=== PATIENT | female | born 1935 | race Caucasian/White ===

== ENCOUNTER → 2019-09-12 | Outpatient (CLI) | payer MEDICARE, OTHER, SELFPAY | PROVIDERS: Family Provider Family Medicine | DX: I51.7 Cardiomegaly (principal); M40.294 Other kyphosis, thoracic region; R05 Cough ==

== ENCOUNTER 2019-09-14 02:36 | Inpatient (IN) | payer MEDICARE, OTHER, SELFPAY ==
[2019-09-14] VITALS (14 sets, daily range): BP systolic 93–184; BP diastolic 46–98; PULSE 63–82; RESP 15–22; TEMP 37.1–37.2; O2SAT 86–97; BMI 34.2
--- NOTE | 2019-09-14 03:04 | W.ED.GENADLT ---
Documented by User: MICHELLE Lowry 09/14/19 19:05 HPI - General Adult General: Chief complaint: General Medical Stated complaint: COLD AND COUGH Time Seen by Provider: 09/14/19 03:01 History of Present Illness: MD complaint: [place] with pneumonia [place] [facility] [place] of symptoms Onset (ago): week(s) Review of Systems General: Reports: 10 or more systems reviewed and unremarkable except in HPI and below Resp: Reports: productive cough, wheezing, change in phlegm color (brownish to grayish) and chest congestion PFSH ED PFSH: Statuses (acute, chronic, etc) shown below reflect problem list status as previously entered and may not be historically accurate Family History (Updated 09/14/19 @ 17:17 by Chelsi Schafer RN) Other Unknown family medical history Social History Smoking and tobacco status: never smoked Physical Exam HENMT: COMMON NORMALS: normocephalic HEAD & SCALP: normocephalic Eye: GENERAL EYE: normal appearance of both eyes Neck/C-Spine: COMMON NORMALS: full ROM and no JVD Chest: COMMONS NORMALS: inspection of chest normal and palpation of chest normal Resp: COMMON NORMALS: normal respiratory effort, no retractions, no use of accessory muscles and clear to auscultation bilaterally EFFORT & INSPECTION: Yes able to speak in complete sentences AUSCULTATION: clear to auscultation bilaterally Cardio: COMMON NORMALS: no JVD, regular rate and regular rhythm RATE: regular rate RHYTHM: regular rhythm GI: COMMON NORMALS: normal to inspection, nondistended, normoactive bowel sounds, soft to palpation and non-tender INSPECTION: Yes normal to inspection AUSCULTATION: Yes normoactive bowel sounds PALPATION: Yes soft Extremity: COMMON NORMALS: normal to inspection, full ROM and normal capillary refill Psych: COMMON NORMALS: mental status grossly normal Skin: COMMON NORMALS: no rashes or lesions noted GENERAL SKIN EXAM: no rashes or lesions noted Course Vital Signs: Vital signs: Vital Signs Temperature 98.7 F 09/14/19 02:47 Pulse Rate 72 09/14/19 17:24 Respiratory Rate 20 H 09/14/19 17:24 Blood Pressure 184/68 01/01/20 17:24 Pulse Oximetry 94 09/14/19 17:24 [facility] - General Adult Lab Data: Labs: Lab Results 09/14/19 09/14/19 09/14/19 Range/Units 03:33 03:33 04:37 WBC 5.0 (4.0-10.0) 10^3/ uL RBC 3.67 L (4.1-5.3) 10^6/u L Hgb 12.9 (11.5-15.3) g/dL Hct 38.3 (37.0-47.0) % MCV 104.4 H (81-99) fL MCH 35.1 H (28.0-34.0) pg MCHC 33.7 (30.0-36.0) g/dL RDW 12.5 (12.1-15.1) % Plt Count 67 L (130-400) 10^3/c mm MPV 10.3 (7.4-10.4) fL Neut % (Auto) 71.6 % Lymph % (Auto) 13.3 % [place] % (Auto) 11.9 % Eos % (Auto) 2.4 % Baso % (Auto) 0.4 % Neut # (Auto) 3.5 (1.8-7.7) 10^3/u L Lymph # (Auto) 0.7 L (0.8-4.8) 10^3/u L [place] # (Auto) 0.6 (0.2-0.9) 10^3/u L Eos # (Auto) 0.1 (0.0-0.8) 10^3/u L Baso # (Auto) 0.0 (0.0-0.1) 10^3/u L Nucleated RBC % (a uto) 0 % Nucleated RBCs # 0.0 /100WBC Sodium 134 L (136-145) mmol/L Potassium 4.3 (3.5-5.1) mmol/L Chloride 97 L (98-107) mmol/L Carbon Dioxide 27 (22-29) mmol/L Anion Gap 14.3 (5-19) BUN 12 (8-23) mg/dL Creatinine 0.8 (0.5-0.9) mg/dL Glucose 194 H (74-106) mg/dL POC Glucose (70-110) mg/dL Lactate 1.1 (0.5-2.2) mmol/L Calcium 9.6 (8.8-10.2) mg/Dl 09/14/19 Range/Units 14:34 WBC (4.0-10.0) 10^3/ uL RBC (4.1-5.3) 10^6/u L Hgb (11.5-15.3) g/dL Hct (37.0-47.0) % MCV (81-99) fL MCH (28.0-34.0) pg MCHC (30.0-36.0) g/dL RDW (12.1-15.1) % Plt Count (130-400) 10^3/c mm MPV (7.4-10.4) fL Neut % (Auto) % Lymph % (Auto) % [place] % (Auto) % Eos % (Auto) % Baso % (Auto) % Neut # (Auto) (1.8-7.7) 10^3/u L Lymph # (Auto) (0.8-4.8) 10^3/u L [place] # (Auto) (0.2-0.9) 10^3/u L Eos # (Auto) (0.0-0.8) 10^3/u L Baso # (Auto) (0.0-0.1) 10^3/u L Nucleated RBC % (a uto) % Nucleated RBCs # /100WBC Sodium (136-145) mmol/L Potassium (3.5-5.1) mmol/L Chloride (98-107) mmol/L Carbon Dioxide (22-29) mmol/L Anion Gap (5-19) BUN (8-23) mg/dL Creatinine (0.5-0.9) mg/dL Glucose (74-106) mg/dL POC Glucose 236 (70-110) mg/dL Lactate (0.5-2.2) mmol/L Calcium (8.8-10.2) mg/Dl Discharge Plan Discharge Patient Disposition: Admitted As Inpatient Admit Provider: Alvino Kimble Clinical Impression: Pneumonia Qualifiers: Pneumonia type: due to unspecified organism Laterality: right Lung location: lower lobe of lung Qualified Code(s): J18.9 - Pneumonia, unspecified organism Condition: Stable Referrals: Alvino Kimble MD [Primary Care Provider] - Discharge Date/Time: 09/14/19 16:42 Coding Level of Care Code ED Test Lead Application Testing for Jani Fwd Documented by User: Rosalio Alcaraz MD 09/14/19 05:38 HPI - General Adult General: Chief complaint: General Medical Stated complaint: COLD AND COUGH Time Seen by Provider: 09/14/19 03:01 Source: patient and EMS Mode of arrival: EMS Limitations: no limitations History of Present Illness: Onset (ago): hour(s) Associated symptoms: Reports dyspnea; Deny chest pain, headache(s), nausea, rash or vomiting Review of Systems Const: Denies: fever or chills Eyes: Denies: change in vision ENMT: Denies: throat pain or mouth pain Card: Denies: chest pain Resp: Reports: shortness of breath and productive cough GI: Denies: abdominal pain, nausea, vomiting or diarrhea : Denies: difficulty urinating Musc: Denies: back pain or joint pain Skin/Breast: Denies: rash Neuro: Denies: headache or behavioral changes Psych: Denies: depression Endo: Denies: excessive urination Jarvis/Lymph: Denies: easy bruising All/Imm: Denies: hives PFSH ED PFSH: Statuses (acute, chronic, etc) shown below reflect problem list status as previously entered and may not be historically accurate Family History (Updated 09/14/19 @ 17:17 by Chelsi Schafer, ADARSH) Other Unknown family medical history Social History Smoking and tobacco status: never smoked Course Vital Signs: Vital signs: Vital Signs Temperature 98.7 F 09/14/19 02:47 Pulse Rate 72 09/14/19 17:24 Respiratory Rate 20 H 09/14/19 17:24 Blood Pressure 184/68 09/14/19 17:24 Pulse Oximetry 94 09/14/19 17:24 MDM - General Adult MDM Narrative: Medical decision making narrative: Patient presents for shortness of breath and is requiring increased oxygen here. Anytime she ambulates she desaturates. I spoke to hospitalist who will admit. Patient given IV antibiotics here. Lab Data: Labs: Lab Results 09/14/19 09/14/19 09/14/19 Range/Units 03:33 03:33 04:37 WBC 5.0 (4.0-10.0) 10^3/ uL RBC 3.67 L (4.1-5.3) 10^6/u L Hgb 12.9 (11.5-15.3) g/dL Hct 38.3 (37.0-47.0) % MCV 104.4 H (81-99) fL MCH 35.1 H (28.0-34.0) pg MCHC 33.7 (30.0-36.0) g/dL RDW 12.5 (12.1-15.1) % Plt Count 67 L (130-400) 10^3/c mm MPV 10.3 (7.4-10.4) fL Neut % (Auto) 71.6 % Lymph % (Auto) 13.3 % [place] % (Auto) 11.9 % Eos % (Auto) 2.4 % Baso % (Auto) 0.4 % Neut # (Auto) 3.5 (1.8-7.7) 10^3/u L Lymph # (Auto) 0.7 L (0.8-4.8) 10^3/u L [place] # (Auto) 0.6 (0.2-0.9) 10^3/u L Eos # (Auto) 0.1 (0.0-0.8) 10^3/u L Baso # (Auto) 0.0 (0.0-0.1) 10^3/u L Nucleated RBC % (a uto) 0 % Nucleated RBCs # 0.0 /100WBC Sodium 134 L (136-145) mmol/L Potassium 4.3 (3.5-5.1) mmol/L Chloride 97 L (98-107) mmol/L Carbon Dioxide 27 (22-29) mmol/L Anion Gap 14.3 (5-19) BUN 12 (8-23) mg/dL Creatinine 0.8 (0.5-0.9) mg/dL Glucose 194 H (74-106) mg/dL POC Glucose (70-110) mg/dL Lactate 1.1 (0.5-2.2) mmol/L Calcium 9.6 (8.8-10.2) mg/Dl 09/14/19 Range/Units 14:34 WBC (4.0-10.0) 10^3/ uL RBC (4.1-5.3) 10^6/u L Hgb (11.5-15.3) g/dL Hct (37.0-47.0) % MCV (81-99) fL MCH (28.0-34.0) pg MCHC (30.0-36.0) g/dL RDW (12.1-15.1) % Plt Count (130-400) 10^3/c mm MPV (7.4-10.4) fL Neut % (Auto) % Lymph % (Auto) % [place] % (Auto) % Eos % (Auto) % Baso % (Auto) % Neut # (Auto) (1.8-7.7) 10^3/u L Lymph # (Auto) (0.8-4.8) 10^3/u L [place] # (Auto) (0.2-0.9) 10^3/u L Eos # (Auto) (0.0-0.8) 10^3/u L Baso # (Auto) (0.0-0.1) 10^3/u L Nucleated RBC % (a uto) % Nucleated RBCs # /100WBC Sodium (136-145) mmol/L Potassium (3.5-5.1) mmol/L Chloride (98-107) mmol/L Carbon Dioxide (22-29) mmol/L Anion Gap (5-19) BUN (8-23) mg/dL Creatinine (0.5-0.9) mg/dL Glucose (74-106) mg/dL POC Glucose 236 (70-110) mg/dL Lactate (0.5-2.2) mmol/L Calcium (8.8-10.2) mg/Dl Imaging Data^: CXR: Attestation: I personally reviewed and interpreted this imaging study as follows: My impression: rll pneumonia Discharge Plan Discharge Patient Disposition: Admitted As Inpatient Admit Provider: Alvino Kimble Clinical Impression: Pneumonia Qualifiers: Pneumonia type: due to unspecified organism Laterality: right Lung location: lower lobe of lung Qualified Code(s): J18.9 - Pneumonia, unspecified organism Condition: Stable Referrals: Alvino Kimble MD [Primary Care Provider] - Discharge Date/Time: 09/14/19 16:42 Coding Level of Care Code ED Test Lead Application Testing for [facility] Stacy
--- NOTE | 2019-09-14 03:12 | XR_ITS ---
WS: [id number] CHEST XRAY TECHNIQUE: Portable chest. CLINICAL INFORMATION: pneumonia COMPARISON: September 12, 2019 FINDINGS: Heart: Cardiomegaly. Aortic calcification. Lungs: Patchy infiltrate right lung base is stable from previous. Left lung is well aerated. Chronic emphysematous change. Bones: Thoracic curve convex right. XR/XR chest 1V portable [id number] IMPRESSION: Patchy infiltrate right lung base consistent with pneumonia. This is stable fro m previous. No focal consolidation.
[2019-09-14 03:37] LABS: Add RBC Morph No
[2019-09-14 03:44] LABS: Basophils % 0.4 %; Eosinophils # 0.1 10^3/uL (0.0-0.8); Eosinophils % 2.4 %; Hematocrit 38.3 % (37.0-47.0); Hemoglobin 12.9 g/dL (11.5-15.3); Lymphocytes # 0.7 10^3/uL (0.8-4.8); Lymphocytes % 13.3 %; Mean Corpuscular HGB Conc 33.7 g/dL (30.0-36.0); Mean Corpuscular Hemoglobin 35.1 pg (28.0-34.0); Mean Corpuscular Volume 104.4 fL (81-99); Mean Platelet Volume 10.3 fL (7.4-10.4); Monocytes # 0.6 10^3/uL (0.2-0.9); Monocytes % 11.9 %; Neutrophils # 3.5 10^3/uL (1.8-7.7); Neutrophils % 71.6 %; Nucleated Red Blood Cells % 0 %; Platelet Count 67 10^3/cmm (130-400); Red Blood Count 3.67 10^6/uL (4.1-5.3); Red Cell Distribution Width 12.5 % (12.1-15.1)
--- NOTE | 2019-09-14 03:49 | ED_ITS ---
Entered by Zulma Flores, acting as scribe for Sep 14, 2019 02:36 HPI - General Adult General: Chief complaint: General Medical Stated complaint: COLD AND COUGH Time Seen by Provider: 09/14/19 03:01 Source: patient Mode of arrival: ambulatory Limitations: no limitations History of Present Illness: HPI narrative: 84 yo f came to the er pov with cold and cough. Onset was 3 days ago. Pt was seen at [facility] and was given steroids. MD complaint: cough and cold Onset (ago): day(s) (3 days ago) Location: chest Associated symptoms: Reports cough; Deny chest pain, dyspnea, fevers/chills, headache(s), nausea, rash or vomiting Review of Systems Const: Denies: fever Eyes: Denies: change in vision ENMT: Denies: throat pain or mouth pain Card: Denies: chest pain Resp: Denies: shortness of breath GI: Denies: abdominal pain, nausea, vomiting or diarrhea : Denies: difficulty urinating Musc: Denies: back pain or joint pain Skin/Breast: Denies: rash Neuro: Denies: headache or behavioral changes Psych: Denies: depression Endo: Denies: excessive urination Jarvis/Lymph: Denies: easy bruising All/Imm: Denies: hives PFSH ED PFSH: Statuses (acute, chronic, etc) shown below reflect problem list status as previously entered and may not be historically accurate Social History Smoking and tobacco status: never smoked Physical Exam Const: COMMON NORMALS: no apparent distress, oriented x3 and healthy appearing HENMT: COMMON NORMALS: normocephalic and external nose normal HEAD & SCALP: normocephalic NOSE: external nose normal Eye: COMMON NORMALS: PERRL PUPIL: Yes PERRL Neck/C-Spine: COMMON NORMALS: full ROM and no lymphadenopathy Chest: COMMONS NORMALS: inspection of chest normal Resp: COMMON NORMALS: normal respiratory effort, no use of accessory muscles and clear to auscultation bilaterally AUSCULTATION: clear to auscultation bilaterally Cardio: COMMON NORMALS: regular rate and regular rhythm RATE: regular rate RHYTHM: regular rhythm GI: COMMON NORMALS: normal to inspection, nondistended, normoactive bowel sounds, soft to palpation, non-tender and no masses PALPATION: Yes soft Back/Pelvis: THORACIC SPINE/UPPER BACK: Yes normal to inspection Extremity: COMMON NORMALS: normal to inspection, full ROM and normal capillary refill Neuro: COMMON NORMALS: oriented x3 Psych: COMMON NORMALS: mental status grossly normal and cooperative Skin: COMMON NORMALS: no rashes or lesions noted GENERAL SKIN EXAM: no rashes or lesions noted Course Vital Signs: Vital signs: Vital Signs Temperature 98.7 F 09/14/19 02:47 Pulse Rate 71 09/14/19 05:00 Respiratory Rate 17 09/14/19 05:00 Blood Pressure 154/61 09/14/19 05:00 Pulse Oximetry 88 L 09/14/19 05:00 MDM - General Adult MDM Narrative: Medical decision making narrative: Patient presents here with cough and is found to have pneumonia. Patient has been on Levaquin. Patient here is desaturating any activity and desats to 80%. Spoke to hospitalist and will admit for IV antibiotics. Lab Data: Labs: Lab Results 09/14/19 09/14/19 09/14/19 Range/Units 03:33 03:33 04:37 WBC 5.0 (4.0-10.0) 10^3/ uL RBC 3.67 L (4.1-5.3) 10^6/u L Hgb 12.9 (11.5-15.3) g/dL Hct 38.3 (37.0-47.0) % MCV 104.4 H (81-99) fL MCH 35.1 H (28.0-34.0) pg MCHC 33.7 (30.0-36.0) g/dL RDW 12.5 (12.1-15.1) % Plt Count 67 L (130-400) 10^3/c mm MPV 10.3 (7.4-10.4) fL Neut % (Auto) 71.6 % Lymph % (Auto) 13.3 % [place] % (Auto) 11.9 % Eos % (Auto) 2.4 % Baso % (Auto) 0.4 % Neut # (Auto) 3.5 (1.8-7.7) 10^3/u L Lymph # (Auto) 0.7 L (0.8-4.8) 10^3/u L [place] # (Auto) 0.6 (0.2-0.9) 10^3/u L Eos # (Auto) 0.1 (0.0-0.8) 10^3/u L Baso # (Auto) 0.0 (0.0-0.1) 10^3/u L Nucleated RBC % (a uto) 0 % Nucleated RBCs # 0.0 /100WBC Sodium 134 L (136-145) mmol/L Potassium 4.3 (3.5-5.1) mmol/L Chloride 97 L (98-107) mmol/L Carbon Dioxide 27 (22-29) mmol/L Anion Gap 14.3 (5-19) BUN 12 (8-23) mg/dL Creatinine 0.8 (0.5-0.9) mg/dL Glucose 194 H (74-106) mg/dL Lactate 1.1 (0.5-2.2) mmol/L Calcium 9.6 (8.8-10.2) mg/Dl Imaging Data^: CXR: Attestation: I personally reviewed and interpreted this imaging study as follows: My impression: rll pneumonia Discharge Plan Discharge Patient Disposition: Admitted As Inpatient Clinical Impression: Pneumonia Condition: Stable Prescriptions: No Action Levaquin 500 mg Tablet 500 mg PO DAILY RF: 0 levothyroxine 100 mcg Tablet 100 mcg PO DAILY RF: 0 spironolactone 100 mg Tablet 100 mg PO DAILY RF: 0 propranolol 60 mg Tablet 60 mg PO DAILY RF: 0 Aspirin Low Dose 81 mg Tablet,Delayed Release (Dr/Ec) 81 mg PO DAILY RF: 0 alprazolam 0.5 mg Tablet 0.5 mg PO BID PRN (Reason: Anxiety) RF: 0 meclizine 25 mg Tablet 25 mg PO QID PRN (Reason: dizziness) RF: 0 Ventolin HFA 90 mcg/actuation Hfa Aerosol Inhaler 2 puff INHALATION 6XD PRN (Reason: Unobtainable) RF: 0 Novolog Mix 70-30FlexPen U-100 100 unit/mL (70-30) Insulin Pen 55 unit SUBCUT DIRECTED RF: 0 Referrals: Alvino Kimble MD [Primary Care Provider] - Coding Level of Care Code ED Pediatrician/Medical Doctor for g Fwd Exam Problem Focused The documentation recorded by the Mark florian Stephanie Lyn, accurately reflects the service I personally performed and the decisions made by me, Rosalio Alcaraz MD Sep 14, 2019 02:36
[2019-09-14 03:59] LABS: Anion Gap 14.3 (5-19); Blood Urea Nitrogen 12 mg/dL (8-23); Calcium 9.6 mg/Dl (8.8-10.2); Carbon Dioxide 27 mmol/L (22-29); Chloride 97 mmol/L (98-107); Glucose 194 mg/dL (74-106); Potassium 4.3 mmol/L (3.5-5.1); Sodium 134 mmol/L (136-145)
[2019-09-14] MEDS: lidocaine 1% INJ 20 mL 2.1 ML INTRADERMA (04:23)
[2019-09-14] MEDS: cefTRIAXone 1,000 mg SDV 1000 MG IM (04:25)
[2019-09-14] MEDS: sodium chloride 0.9% 1,000 ML 999 ML IV (04:43)
[2019-09-14 05:05] LABS: Lactate (Lactic Acid level) 1.1 mmol/L (0.5-2.2)
--- NOTE | 2019-09-14 07:38 | PC.NURSE ---
per Dr Webb dc ivpb rocephin due to being given IM at [id number]
[2019-09-14] MEDS: azithromycin 500 MG in sodium chloride 0.9% 250 ML 250 MG IV (07:41)
[2019-09-14] MEDS: benzonatate 100 mg Capsule PO (07:52)
[2019-09-14 14:37] LABS: Glucose Point of Care 236 mg/dL (70-110)
[2019-09-14 17:34] LABS: Glucose Point of Care 305 mg/dL (70-110)
--- NOTE | 2019-09-14 18:46 | P.HP_ITS ---
Providers/Chief Complaint Admitting Physician: Alvino Kimble MD Primary Care Provider: Alvino Kimble MD Chief Complaint: COLD AND COUGH History of Present Illness Renee Dhaliwal is a 84 year old female who came in after having 2 weeks of cough and sob. Has green sputum and had some low grade temps. Started on levaquin at 2 weeks ago. not improving. Review of Systems Narrative: General: No chronic fevers or chronic weight changes. HEENT: No acute changes in vision. No acute hearing loss. No new difficulty swallowing. Heart: No new chest pain or recent issues with coronary disease. Lungs: No history of TB. No chronic lung disease. GI: No history of GI bleeding. No hepatitis. No chronic nausea or vomitting. Renal: No dysuria or frequency. No hematuria Neuro: No acute neurological changes or deficits. Musculoskeletal: No acutely worsening joint pain or swelling. Medications/Allergies Home Medications Medication Instructions Recorded Confirmed Last Taken Type albuterol sulfate [Ventolin HFA] 2 puff INHALATION Q4H PRN 09/14/19 09/14/19 Unknown History alprazolam 0.5 mg PO BID PRN 09/14/19 09/14/19 Unknown History aspirin [Aspirin Low Dose] 81 mg PO DAILY 09/14/19 09/14/19 Unknown History docusate sodium [Colace] 100 mg PO DAILY 09/14/19 09/14/19 09/13/19 History insulin asp prt-insulin aspart See Rx Instructions .ROUTE .COMPLEX 09/14/19 09/14/19 Unknown History [Novolog Mix 70-30FlexPen U-100] levofloxacin [Levaquin] 500 mg PO DAILY 09/14/19 09/14/19 09/12/19 History levothyroxine 100 mcg PO DAILY 09/14/19 09/14/19 09/13/19 History meclizine 25 mg PO QID PRN 09/14/19 09/14/19 09/13/19 History 25 MG propranolol 60 mg PO DAILY 09/14/19 09/14/19 09/13/19 History spironolactone 100 mg PO DAILY 09/14/19 09/14/19 09/13/19 History vitamin K2 100 mcg PO EVERY OTHER DAY 09/14/19 09/14/19 Unknown History Allergies Allergy/AdvReac Type Severity Reaction Status Date / Time codeine Allergy Unknown Verified 09/14/19 17:17 morphine Allergy Unknown Verified 09/14/19 17:17 Sulfa (Sulfonamide Allergy Unknown Verified 09/14/19 17:17 Antibiotics) PFSH Acute PFSH: Statuses (acute, chronic, etc) shown below reflect problem list status as previously entered and may not be historically accurate Medical History (Updated 09/14/19 @ 21:17 by Alvino Kimble MD) Cirrhosis of liver (Acute) normal labs and biopsy. Had esophageal varices. Etiology unclear. CVA (cerebral vascular accident) (Acute) Diabetes (Acute) Glaucoma (Acute) Hypertension (Acute) Hypothyroid (Acute) Lichen planus (Acute) Surgical History (Updated 09/14/19 @ 21:17 by Alvino Kimble MD) H/O bilateral cataract extraction (Acute) H/O: section (Acute) History of cholecystectomy (Acute) History of hysterectomy (Acute) Family History (Updated 09/14/19 @ 17:17 by Chelsi Schafer RN) Other Unknown family medical history Social History (Updated 09/14/19 @ 21:19 by Alvino Kimble MD) Smoking and tobacco status: never smoked Alcohol intake: never Substance/Drug Use: never Marital status: / Vitals/I&O/Wt Last Vital Signs Temp 98.7 F 09/14/19 02:47 Pulse 72 09/14/19 17:24 Resp 20 H 09/14/19 17:24 BP 184/68 09/14/19 17:24 Pulse Ox 94 09/14/19 17:24 Weight last 48 hrs Weight 79.379 kg Physical Exam Const: COMMON NORMALS: no apparent distress and alert GENERAL APPEARANCE: cooperative and well developed HENMT: COMMON NORMALS: normocephalic, head/scalp atraumatic, TM's normal bilaterally and external nose normal HEAD & SCALP: normocephalic and atraumatic NOSE: external nose normal TYMPANIC MEMBRANE: TM's normal bilaterally MOUTH: oral and palatal mucosa normal THROAT: posterior oropharynx normal Eye: COMMON NORMALS: PERRL, EOMs intact bilaterally and conjunctivae normal CONJUNCTIVA: Yes conjunctivae normal PUPIL: Yes PERRL Neck/C-Spine: COMMON NORMALS: full ROM, no lymphadenopathy, supple and thyroid normal THYROID: thyroid normal Resp: COMMON NORMALS: normal respiratory effort, no retractions and no use of accessory muscles AUSCULTATION: not clear to auscultation bilaterally, no crackles, rhonchi throughout and wheezes expiratory wheezes Cardio: COMMON NORMALS: regular rate, regular rhythm, no murmurs, no rub and peripheral pulses 2+ throughout RATE: regular rate RHYTHM: regular rhythm PERIPHERAL PULSES: pulses 2+ throughout GI: COMMON NORMALS: normal to inspection, nondistended, normoactive bowel sounds, non-tender, no hepatosplenomegaly and no masses PALPATION: Yes no hepatosplenomegaly Extremity: COMMON NORMALS: normal to inspection, full ROM, normal capillary refill, no clubbing, cyanosis or edema, no calf tenderness and no pedal edema Neuro: SENSORIUM/ORIENTATION: Yes alert Data Labs: Other Labs: All Labs last 24 hrs except CBC/BMP 09/14/19 09/14/19 09/14/19 03:33 03:33 04:37 RBC 3.67 L MCV 104.4 H MCH 35.1 H MCHC 33.7 RDW 12.5 MPV 10.3 Neut % (Auto) 71.6 Lymph % (Auto) 13.3 [place] % (Auto) 11.9 Eos % (Auto) 2.4 Baso % (Auto) 0.4 Neut # (Auto) 3.5 Lymph # (Auto) 0.7 L [place] # (Auto) 0.6 Eos # (Auto) 0.1 Baso # (Auto) 0.0 Nucleated RBC % (a uto) 0 Nucleated RBCs # 0.0 POC Glucose Lactate 1.1 Calcium 9.6 09/14/19 09/14/19 14:34 17:31 RBC MCV MCH MCHC RDW MPV Neut % (Auto) Lymph % (Auto) [place] % (Auto) Eos % (Auto) Baso % (Auto) Neut # (Auto) Lymph # (Auto) [place] # (Auto) Eos # (Auto) Baso # (Auto) Nucleated RBC % (a uto) Nucleated RBCs # POC Glucose 236 305 Lactate Calcium A&P Assessment and plan (1) Pneumonia: Will admit to floor. oxygen IV antibiotics RT to assess and treat. IS Status: Acute Qualifiers: Laterality: right Lung location: lower lobe of lung Pneumonia type: due to unspecified organism Qualified Code(s): J18.9 - Pneumonia, unspecified organism Code(s): J18.9 - Pneumonia, unspecified organism Attestations Medical Necessity Statement*: Has pneumonia requiring oxygen and inpatient IV treatments. Coding Level of Care Code Acute Oil Deliverer for [facility] Exam Problem Focused Diagnoses Pneumonia J18.9 Laterality: right Lung location: lower lobe of lung Pneumonia type: due to unspecified organism
[2019-09-14] MEDS: insulin aspart 70/30 100 units/1 mL 45 UNIT SUBCUT (20:27)
--- NOTE | 2019-09-14 20:40 | PC.NURSE ---
Dr. Swift notified of nurses moving patient to Med-Surg. Dr. Swift also notified of patient asking for something for a cough.
[2019-09-14 21:44] LABS: Glucose Point of Care 332 mg/dL (70-110)
[2019-09-14] MEDS: acetaminophen 325 mg Tablet 650 MG PO (23:29)
[2019-09-15] VITALS (12 sets, daily range): BP systolic 97–183; BP diastolic 54–73; PULSE 68–86; RESP 16–22; TEMP 36.9–38.4; O2SAT 93–99
[2019-09-15] MEDS: cefTRIAXone 1,000 MG in sodium chloride 0.9% (plus) 50 ML 100 MG IV (04:20)
[2019-09-15 05:30] LABS: Basophils % 0.5 %; Eosinophils % 0.8 %; Hematocrit 36.4 % (37.0-47.0); Hemoglobin 11.9 g/dL (11.5-15.3); Lymphocytes # 0.7 10^3/uL (0.8-4.8); Lymphocytes % 16.5 %; Mean Corpuscular HGB Conc 32.7 g/dL (30.0-36.0); Mean Corpuscular Hemoglobin 34.9 pg (28.0-34.0); Mean Corpuscular Volume 106.7 fL (81-99); Mean Platelet Volume 10.2 fL (7.4-10.4); Monocytes # 0.5 10^3/uL (0.2-0.9); Monocytes % 13.3 %; Neutrophils # 2.8 10^3/uL (1.8-7.7); Neutrophils % 68.6 %; Nucleated Red Blood Cells % 0 %; Platelet Count 47 10^3/cmm (130-400); Red Blood Count 3.41 10^6/uL (4.1-5.3); Red Cell Distribution Width 12.8 % (12.1-15.1)
[2019-09-15 05:34] LABS: Add RBC Morph No
[2019-09-15 05:48] LABS: Alanine Aminotransferase 35 U/L (0-33); Albumin Level 3.5 g/dL (3.5-5.2); Alkaline Phosphatase 87 IU/L (35-105); Anion Gap 10.2 (5-19); Aspartate Amino Transferase 58 U/L (0-32); Blood Urea Nitrogen 16 mg/dL (8-23); Calcium 8.8 mg/Dl (8.8-10.2); Carbon Dioxide 30 mmol/L (22-29); Chloride 98 mmol/L (98-107); Glucose 161 mg/dL (74-106); Potassium 4.2 mmol/L (3.5-5.1); Sodium 134 mmol/L (136-145); Total Bilirubin 0.7 mg/dL (0.15-1.2); Total Protein 6.5 g/dL (6.6-8.7)
[2019-09-15 06:43] LABS: Glucose Point of Care 147 mg/dL (70-110)
[2019-09-15] MEDS: ipratropium-albuterol 3 mL Neb INHALATION (08:55)
[2019-09-15] MEDS: insulin aspart 70/30 100 units/1 mL 55 UNIT SUBCUT (09:53)
[2019-09-15] MEDS: spironolactone 25 mg Tablet 100 MG PO (10:02)
[2019-09-15] MEDS: aspirin 81 mg EC Tablet PO (10:02)
[2019-09-15] MEDS: levothyroxine 100 mcg Tablet PO (10:03)
[2019-09-15] MEDS: docusate sodium 100 mg Capsule PO (10:03)
[2019-09-15 12:42] LABS: Glucose Point of Care 160 mg/dL (70-110)
[2019-09-15] MEDS: insulin aspart 70/30 100 units/1 mL 20 UNIT SUBCUT (13:15)
[2019-09-15 16:27] LABS: Glucose Point of Care 91 mg/dL (70-110)
--- NOTE | 2019-09-15 17:40 | PC.PT ---
Patient declined 2 attempts at PT evaluation today; will reattempt in a.m.
[2019-09-15 18:06] LABS: Glucose Point of Care 81 mg/dL (70-110)
--- NOTE | 2019-09-15 18:47 | PM.PN ---
Subjective Subjective: Interval history: Not much better. Still has a lot of dyspnea. No fevers. Vitals/I&O/Wt Last Vital Signs Temp 99.3 F 09/15/19 15:19 Pulse 73 09/15/19 15:19 Resp 18 09/15/19 15:19 BP 131/73 09/15/19 15:19 Pulse Ox 95 09/15/19 15:19 09/15/19 09/15/19 09/15/19 06:59 14:59 22:59 Intake Total 698.75 / 698.75 Output Total 50 / 50 Balance 648.75 / 648.75 Weight last 48 hrs Weight 86.183 kg Weight 79.379 kg Physical Exam Narrative: EXAM NARRATIVE: General: No acute distress, Alert. Well nourished. Heart: Regular rate and rhythm. No murmurs, rubs or gallops. Normal capillary refill. Lungs: exp wheezes. no crackles Abdomen: Positive bowel sounds. Non-tender, non-distended. No hepatosplenomegaly. No gaurding. Extremities: No clubbing, cyanosis, or edema. Negative Greyson's A&P Assessment and plan (1) Pneumonia: Not improving. Continue IV antibiotics, steroids, RT, oxygen. If no better by tomorrow will change antibiotics. Status: Acute Qualifiers: Laterality: right Lung location: lower lobe of lung Pneumonia type: due to unspecified organism Qualified Code(s): J18.9 - Pneumonia, unspecified organism Code(s): J18.9 - Pneumonia, unspecified organism (2) Diabetes: stable Status: Acute Code(s): E11.9 - Type 2 diabetes mellitus without complications Attestations Medical Necessity Statement*: Patient has acute medical problems that require continued inpatient IV treatments and monitoring. 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
[2019-09-15] MEDS: acetaminophen 325 mg Tablet 650 MG PO (20:17)
[2019-09-15 20:45] LABS: Glucose Point of Care 155 mg/dL (70-110)
[2019-09-15 20:45] LABS: Glucose Point of Care 136 mg/dL (70-110)
[2019-09-16] VITALS (12 sets, daily range): BP systolic 108–171; BP diastolic 59–73; PULSE 69–92; RESP 16–20; TEMP 36.6–37.6; O2SAT 93–97
[2019-09-16] MEDS: cefTRIAXone 1,000 MG in sodium chloride 0.9% (plus) 50 ML 100 MG IV (03:55)
[2019-09-16 05:53] LABS: Basophils % 0.2 %; Eosinophils % 0.2 %; Hematocrit 36.1 % (37.0-47.0); Lymphocytes # 0.6 10^3/uL (0.8-4.8); Lymphocytes % 10.4 %; Mean Corpuscular HGB Conc 33.2 g/dL (30.0-36.0); Mean Corpuscular Hemoglobin 35.1 pg (28.0-34.0); Mean Corpuscular Volume 105.6 fL (81-99); Mean Platelet Volume 10.2 fL (7.4-10.4); Monocytes # 0.6 10^3/uL (0.2-0.9); Monocytes % 11.8 %; Neutrophils # 4.1 10^3/uL (1.8-7.7); Neutrophils % 76.8 %; Nucleated Red Blood Cells % 0 %; Platelet Count 41 10^3/cmm (130-400); Red Blood Count 3.42 10^6/uL (4.1-5.3); Red Cell Distribution Width 12.4 % (12.1-15.1); White Blood Count 5.4 10^3/uL (4.0-10.0)
[2019-09-16 06:30] LABS: Glucose Point of Care 138 mg/dL (70-110)
[2019-09-16 06:33] LABS: Alanine Aminotransferase 32 U/L (0-33); Albumin Level 3.7 g/dL (3.5-5.2); Alkaline Phosphatase 83 IU/L (35-105); Anion Gap 12.1 (5-19); Aspartate Amino Transferase 55 U/L (0-32); Blood Urea Nitrogen 12 mg/dL (8-23); Calcium 9.1 mg/Dl (8.8-10.2); Carbon Dioxide 30 mmol/L (22-29); Chloride 99 mmol/L (98-107); Globulin 2.2 g/dL (1.3-4.6); Glucose 128 mg/dL (74-106); Potassium 4.1 mmol/L (3.5-5.1); Sodium 137 mmol/L (136-145); Total Bilirubin 0.8 mg/dL (0.15-1.2); Total Protein 5.9 g/dL (6.6-8.7)
[2019-09-16] MEDS: spironolactone 25 mg Tablet 100 MG PO (08:34)
[2019-09-16] MEDS: docusate sodium 100 mg Capsule PO (08:34)
[2019-09-16] MEDS: aspirin 81 mg EC Tablet PO (08:35)
[2019-09-16] MEDS: levothyroxine 100 mcg Tablet PO (08:35)
[2019-09-16] MEDS: propranolol 40 mg Tablet 60 MG PO (08:35)
[2019-09-16] MEDS: piperacillin-tazobactam 3.375 GM in sodium chloride 0.9% (plus) 50 ML IV ×2 (09:03→23:37)
[2019-09-16] MEDS: vancomycin 1,000 MG in sodium chloride 0.9% 250 ML 250 MG IV (10:33)
[2019-09-16 12:28] LABS: Glucose Point of Care 205 mg/dL (70-110)
[2019-09-16] MEDS: insulin aspart 70/30 100 units/1 mL 20 UNIT SUBCUT (13:28)
--- NOTE | 2019-09-16 14:10 | P.PN_ITS ---
Subjective Subjective: Interval history: Seems to be a little bit better today. No fevers. Still coughing up some sputum. No nausea vomiting. Still wheezing a lot though. Vitals/I&O/Wt Last Vital Signs Temp 99 F 09/16/19 11:35 Pulse 69 09/16/19 11:35 Resp 18 09/16/19 11:35 BP 108/67 09/16/19 11:35 Pulse Ox 95 09/16/19 11:35 09/15/19 09/16/19 09/16/19 22:59 06:59 14:59 Intake Total 120 / 120 290 / 410 400 / 400 Output Total 950 / 950 Balance 120 / 120 -660 / -540 400 / 400 Weight last 48 hrs Weight 83.546 kg Weight 86.364 kg Weight 87.317 kg Weight 86.183 kg Physical Exam Narrative: EXAM NARRATIVE: General: No acute distress, Alert. Well nourished. Heart: Regular rate and rhythm. No murmurs, rubs or gallops. Normal capillary refill. Lungs: exp wheezes. no crackles Abdomen: Positive bowel sounds. Non-tender, non-distended. No hepatosplenomegaly. No gaurding. Extremities: No clubbing, cyanosis, or edema. Negative Greyson's Const: COMMON NORMALS: no apparent distress and alert GENERAL APPEARANCE: cooperative and well developed HENMT: COMMON NORMALS: normocephalic, head/scalp atraumatic, TM's normal bilaterally and external nose normal HEAD & SCALP: normocephalic and atraumatic NOSE: external nose normal TYMPANIC MEMBRANE: TM's normal bilaterally MOUTH: oral and palatal mucosa normal THROAT: posterior oropharynx normal Eye: COMMON NORMALS: PERRL, EOMs intact bilaterally and conjunctivae normal CONJUNCTIVA: Yes conjunctivae normal PUPIL: Yes PERRL Neck/C-Spine: COMMON NORMALS: full ROM, no lymphadenopathy, supple and thyroid normal THYROID: thyroid normal Resp: COMMON NORMALS: normal respiratory effort, no retractions and no use of accessory muscles AUSCULTATION: no crackles, rhonchi throughout and wheezes expiratory wheezes Cardio: COMMON NORMALS: regular rate, regular rhythm, no murmurs, no rub and peripheral pulses 2+ throughout RATE: regular rate RHYTHM: regular rhythm PERIPHERAL PULSES: pulses 2+ throughout GI: COMMON NORMALS: normal to inspection, nondistended, normoactive bowel sounds, non-tender, no hepatosplenomegaly and no masses PALPATION: Yes no hepatosplenomegaly Extremity: COMMON NORMALS: normal to inspection, full ROM, normal capillary refill, no clubbing, cyanosis or edema, no calf tenderness and no pedal edema Neuro: SENSORIUM/ORIENTATION: Yes alert A&P Assessment and plan (1) Pneumonia: Not improving. Continue IV antibiotics, steroids, RT, oxygen. If no better by tomorrow will change antibiotics. 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
--- NOTE | 2019-09-16 14:14 | P.PN_ITS ---
Subjective Subjective: Interval history: Patient seems to be doing little bit better. No fevers. Still coughing up some sputum. Still wheezing quite a bit. Little more strength. She is agreeable to going to rehab when she is ready. Vitals/I&O/Wt Last Vital Signs Temp 99 F 09/16/19 11:35 Pulse 69 09/16/19 11:35 Resp 18 09/16/19 11:35 BP 108/67 09/16/19 11:35 Pulse Ox 95 09/16/19 11:35 09/15/19 09/16/19 09/16/19 22:59 06:59 14:59 Intake Total 120 / 120 290 / 410 400 / 400 Output Total 950 / 950 Balance 120 / 120 -660 / -540 400 / 400 Weight last 48 hrs Weight 83.546 kg Weight 86.364 kg Weight 87.317 kg Weight 86.183 kg Physical Exam Narrative: EXAM NARRATIVE: General: No acute distress, Alert. Well nourished. Heart: Regular rate and rhythm. No murmurs, rubs or gallops. Normal capillary refill. Lungs: No significant crackles. Does have some expiratory wheezes and rhonchi Abdomen: Positive bowel sounds. Non-tender, non-distended. No hepatosplenomegaly. No gaurding. Extremities: No clubbing, cyanosis, or edema. Negative Greyson's A&P Assessment and plan (1) Diabetes: Blood sugars doing okay. We will continue to monitor with adding steroids. Status: Acute Code(s): E11.9 - Type 2 diabetes mellitus without complications (2) Pneumonia: Overall she has not improved as much as I would like. CBC is improved but still on quite a bit of oxygen. Changed her antibiotics today from Rocephin and Zithromax to Zosyn and vancomycin. We will see if she does better with this. Schedule her nebulized breathing treatments. Also add IV steroids. We will trial a chest vest with her as well. Patient is agreeable to going to rehab at the time of discharge. Status: Acute Qualifiers: Laterality: right Lung location: lower lobe of lung Pneumonia type: due to unspecified organism Qualified Code(s): J18.9 - Pneumonia, unspecified organism Code(s): J18.9 - Pneumonia, unspecified organism Attestations Medical Necessity Statement*: Patient has acute medical problems that require continued inpatient IV treatments and monitoring. 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
[2019-09-16] MEDS: ipratropium-albuterol 3 mL Neb INHALATION ×3 (15:41→22:56)
[2019-09-16 17:07] LABS: Glucose Point of Care 261 mg/dL (70-110)
[2019-09-16] MEDS: insulin aspart 70/30 100 units/1 mL 45 UNIT SUBCUT (17:42)
[2019-09-16 21:10] LABS: Glucose Point of Care 268 mg/dL (70-110)
[2019-09-17] VITALS (17 sets, daily range): BP systolic 125–151; BP diastolic 62–74; PULSE 61–82; RESP 17–20; TEMP 35.3–36.8; O2SAT 92–98
[2019-09-17] MEDS: ipratropium-albuterol 3 mL Neb INHALATION ×6 (02:12→22:56)
[2019-09-17] MEDS: vancomycin 1,000 MG in sodium chloride 0.9% 250 ML 250 MG IV (02:27)
[2019-09-17 06:15] LABS: Hematocrit 38.7 % (37.0-47.0); Hemoglobin 12.8 g/dL (11.5-15.3); Lymphocytes # 0.7 10^3/uL (0.8-4.8); Lymphocytes % 10.5 %; Mean Corpuscular HGB Conc 33.1 g/dL (30.0-36.0); Mean Corpuscular Hemoglobin 34.8 pg (28.0-34.0); Mean Corpuscular Volume 105.2 fL (81-99); Mean Platelet Volume 10.3 fL (7.4-10.4); Monocytes # 0.2 10^3/uL (0.2-0.9); Monocytes % 2.9 %; Neutrophils # 5.3 10^3/uL (1.8-7.7); Neutrophils % 85.8 %; Nucleated Red Blood Cells % 0 %; Platelet Count 55 10^3/cmm (130-400); Red Blood Count 3.68 10^6/uL (4.1-5.3); Red Cell Distribution Width 12.1 % (12.1-15.1); White Blood Count 6.2 10^3/uL (4.0-10.0)
[2019-09-17 06:35] LABS: Glucose Point of Care 173 mg/dL (70-110)
[2019-09-17 06:42] LABS: Alanine Aminotransferase 30 U/L (0-33); Albumin Level 3.9 g/dL (3.5-5.2); Alkaline Phosphatase 78 IU/L (35-105); Anion Gap 12.6 (5-19); Aspartate Amino Transferase 43 U/L (0-32); Blood Urea Nitrogen 19 mg/dL (8-23); Calcium 9.1 mg/Dl (8.8-10.2); Carbon Dioxide 29 mmol/L (22-29); Chloride 98 mmol/L (98-107); Globulin 2.2 g/dL (1.3-4.6); Glucose 215 mg/dL (74-106); Potassium 4.6 mmol/L (3.5-5.1); Sodium 135 mmol/L (136-145); Total Bilirubin 0.6 mg/dL (0.15-1.2); Total Protein 6.1 g/dL (6.6-8.7)
[2019-09-17 07:47] LABS: Slide Review Slide Review Perform
[2019-09-17] MEDS: insulin aspart 70/30 100 units/1 mL 55 UNIT SUBCUT (09:21)
[2019-09-17] MEDS: levothyroxine 100 mcg Tablet PO (09:22)
[2019-09-17] MEDS: propranolol 40 mg Tablet 60 MG PO (09:22)
[2019-09-17] MEDS: docusate sodium 100 mg Capsule PO (09:23)
[2019-09-17] MEDS: aspirin 81 mg EC Tablet PO (09:23)
[2019-09-17] MEDS: spironolactone 25 mg Tablet 100 MG PO (09:23)
[2019-09-17 11:25] LABS: Glucose Point of Care 356 mg/dL (70-110)
--- NOTE | 2019-09-17 11:31 | PC.SOCIAL ---
IMM Update Pg 2 of IMM Given and explained to patient who voiced understanding. Signed, dated and timed and placed in chart. Copy provided to patient.
[2019-09-17 12:09] LABS: Thyroid Stimulating Hormone 2.39 uIU/mL (0.27-4.20); Vitamin B12 889 pg/mL (232-1245)
[2019-09-17] MEDS: piperacillin-tazobactam 3.375 GM in sodium chloride 0.9% (plus) 50 ML IV ×2 (12:22→21:14)
[2019-09-17] MEDS: insulin aspart 70/30 100 units/1 mL 20 UNIT SUBCUT (12:25)
--- NOTE | 2019-09-17 14:24 | P.PN_ITS ---
Subjective Subjective: Interval history: Renee reports she feels a little bit better today. No other complaints. No chest pain. Denies any significant edema. Daughter relates she has some sundowning at night. Medications: Reviewed: Yes Vitals/I&O/Wt Last Vital Signs Temp 97.8 F 09/17/19 11:22 Pulse 73 09/17/19 12:32 Resp 18 09/17/19 12:26 BP 129/62 09/17/19 11:22 Pulse Ox 93 09/17/19 12:26 09/16/19 09/17/19 09/17/19 22:59 06:59 14:59 Intake Total 300 / 1000 170 / 1170 840 / 840 Output Total 300 / 300 690 / 990 350 / 350 Balance 0 / 700 -520 / 180 490 / 490 Weight last 48 hrs Weight 80.195 kg Weight 83.546 kg Weight 86.364 kg Physical Exam Narrative: EXAM NARRATIVE: General exam is no apparent distress Cardiovascular regular rate and rhythm without murmur Lungs bilateral expiratory wheezes. Diminished breath sounds bilaterally. Abdomen is soft with positive bowel sounds Extremities no cyanosis clubbing or edema A&P Assessment and plan (1) Pneumonia: Currently on vancomycin, Zosyn, IV steroids, pulmonary toilet. Appears improved today. Plan on continuing current IV antibiotics, reducing IV steroids. Possibly transition to oral prednisone tomorrow. Secondary to some sundowning, advanced age would like to taper steroids quickly if possible to prevent psychosis Patient is agreeable to going to rehab at the time of discharge. Status: Acute Qualifiers: Laterality: right Lung location: lower lobe of lung Pneumonia type: due to unspecified organism Qualified Code(s): J18.9 - Pneumonia, unspecified organism Code(s): J18.9 - Pneumonia, unspecified organism (2) Diabetes: Should improve with reduction of IV steroids. Status: Acute Code(s): E11.9 - Type 2 diabetes mellitus without complications (3) Sundowning: This is a reflection of some underlying dementia. Certainly her history of cirrhosis could complicate things as well. 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
[2019-09-17 16:11] LABS: Glucose Point of Care 393 mg/dL (70-110)
[2019-09-17 17:28] LABS: Glucose Point of Care 335 mg/dL (70-110)
[2019-09-17] MEDS: insulin aspart 70/30 100 units/1 mL 45 UNIT SUBCUT (18:05)
[2019-09-17 19:23] LABS: Vancomycin Trough 5.6 ug/mL (10-15)
[2019-09-17] MEDS: vancomycin 1,000 MG in sodium chloride 0.9% 250 ML 166 MG IV (19:35)
[2019-09-17] MEDS: ALPRAZolam 0.5 mg Tablet PO (21:33)
[2019-09-17 22:12] LABS: Glucose Point of Care 181 mg/dL (70-110)
[2019-09-18] VITALS (17 sets, daily range): BP systolic 110–136; BP diastolic 59–75; PULSE 61–80; RESP 16–22; TEMP 36.3–36.9; O2SAT 93–98
[2019-09-18] MEDS: ipratropium-albuterol 3 mL Neb INHALATION ×6 (03:11→23:21)
[2019-09-18] MEDS: piperacillin-tazobactam 3.375 GM in sodium chloride 0.9% (plus) 50 ML IV ×3 (04:13→20:14)
[2019-09-18 06:36] LABS: Glucose Point of Care 57 mg/dL (70-110)
--- NOTE | 2019-09-18 06:47 | PC.NURSE ---
Patient BG this AM 57, per hypoglycemic protocol located on NOV, patient was given 4oz of orange juice. Will recheck BG in 15 mins.
[2019-09-18 06:55] LABS: Glucose Point of Care 60 mg/dL (70-110)
[2019-09-18 07:55] LABS: Glucose Point of Care 105 mg/dL (70-110)
[2019-09-18] MEDS: spironolactone 25 mg Tablet 100 MG PO (09:59)
[2019-09-18] MEDS: aspirin 81 mg EC Tablet PO (10:00)
[2019-09-18] MEDS: acetaminophen 325 mg Tablet 650 MG PO (10:00)
[2019-09-18] MEDS: ALPRAZolam 0.5 mg Tablet PO (10:00)
[2019-09-18] MEDS: propranolol 40 mg Tablet 60 MG PO (10:01)
[2019-09-18] MEDS: levothyroxine 100 mcg Tablet PO (10:03)
--- NOTE | 2019-09-18 10:41 | P.PN_ITS ---
Subjective Subjective: Interval history: Renee reports she feels a little bit better. Still wheezing some. Denies confusion last night. Medications: Reviewed: Yes Vitals/I&O/Wt Last Vital Signs Temp 98.5 F 09/18/19 07:22 Pulse 74 09/18/19 07:22 Resp 22 H 09/18/19 07:22 BP 132/75 09/18/19 07:22 Pulse Ox 96 09/18/19 07:22 09/17/19 09/18/19 09/18/19 22:59 06:59 14:59 Intake Total 520 / 1360 66.458 / 1426.458 360 / 360 Output Total 100 / 450 Balance 420 / 910 66.458 / 976.458 360 / 360 Weight last 48 hrs Weight 80.195 kg Physical Exam Narrative: EXAM NARRATIVE: General exam no apparent distress, although appears mildly confused Cardiovascular regular rate and rhythm with a 2/6 systolic murmur Lungs bilateral expiratory wheezes, improved from yesterday Abdomen is soft with positive bowel sounds Extremities no cyanosis clubbing or edema A&P Assessment and plan (1) Pneumonia: Currently on vancomycin, Zosyn, IV steroids, pulmonary toilet. Appears improved today. Transition to oral prednisone today. Patient is agreeable to going to rehab at the time of discharge. I suspect she can be [facility]. Recheck laboratory tomorrow. Status: Acute Qualifiers: Laterality: right Lung location: lower lobe of lung Pneumonia type: due to unspecified organism Qualified Code(s): J18.9 - Pneumonia, unspecified organism Code(s): J18.9 - Pneumonia, unspecified organism (2) Diabetes: Should improve with reduction of IV steroids. Status: Acute Code(s): E11.9 - Type 2 diabetes mellitus without complications (3) ing: This is a reflection of some underlying dementia. Certainly her history of cirrhosis could complicate things as well. Secondary to this and elevated MCV TSH and B12 level were checked and normal. 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
[2019-09-18 11:08] LABS: Glucose Point of Care 209 mg/dL (70-110)
[2019-09-18] MEDS: insulin aspart 70/30 100 units/1 mL 20 UNIT SUBCUT (11:50)
[2019-09-18 16:18] LABS: Glucose Point of Care 179 mg/dL (70-110)
[2019-09-18] MEDS: insulin aspart 70/30 100 units/1 mL 45 UNIT SUBCUT (17:37)
[2019-09-18 19:10] LABS: Glucose Point of Care 236 mg/dL (70-110)
[2019-09-18 21:48] LABS: Glucose Point of Care 177 mg/dL (70-110)
--- NOTE | 2019-09-18 23:14 | PC.NURSE ---
Zosyn: Zosyn is still infusing. 12.5 ml/hr; Will complete at 0014.
[2019-09-19] VITALS (13 sets, daily range): BP systolic 115–132; BP diastolic 62–75; PULSE 59–82; RESP 16–20; TEMP 36.4–36.7; O2SAT 92–98; BMI 29.7
[2019-09-19] MEDS: ipratropium-albuterol 3 mL Neb INHALATION ×4 (03:47→16:15)
[2019-09-19] MEDS: piperacillin-tazobactam 3.375 GM in sodium chloride 0.9% (plus) 50 ML IV ×3 (03:54→22:26)
[2019-09-19 06:11] LABS: Basophils % 0.1 %; Hemoglobin 12.4 g/dL (11.5-15.3); Lymphocytes # 0.8 10^3/uL (0.8-4.8); Mean Corpuscular HGB Conc 31.8 g/dL (30.0-36.0); Mean Corpuscular Hemoglobin 35.4 pg (28.0-34.0); Mean Corpuscular Volume 111.4 fL (81-99); Mean Platelet Volume 9.7 fL (7.4-10.4); Monocytes # 0.9 10^3/uL (0.2-0.9); Monocytes % 11.7 %; Neutrophils # 5.9 10^3/uL (1.8-7.7); Neutrophils % 76.9 %; Nucleated Red Blood Cells % 0 %; Platelet Count 71 10^3/cmm (130-400); Red Cell Distribution Width 12.6 % (12.1-15.1); White Blood Count 7.7 10^3/uL (4.0-10.0)
[2019-09-19 06:34] LABS: Anion Gap 11.6 (5-19); Blood Urea Nitrogen 28 mg/dL (8-23); Calcium 8.8 mg/Dl (8.8-10.2); Carbon Dioxide 31 mmol/L (22-29); Chloride 105 mmol/L (98-107); Glucose 107 mg/dL (74-106); Potassium 4.6 mmol/L (3.5-5.1); Sodium 143 mmol/L (136-145)
[2019-09-19 06:35] LABS: Glucose Point of Care 109 mg/dL (70-110)
[2019-09-19] MEDS: guaiFENesin 100 mg/5 mL UDC 10 mL 200 MG PO ×2 (09:00→16:40)
[2019-09-19] MEDS: acetaminophen 325 mg Tablet 650 MG PO (09:00)
[2019-09-19] MEDS: levothyroxine 100 mcg Tablet PO (09:01)
[2019-09-19] MEDS: spironolactone 25 mg Tablet 100 MG PO (09:01)
[2019-09-19] MEDS: propranolol 40 mg Tablet 60 MG PO (09:01)
[2019-09-19] MEDS: aspirin 81 mg EC Tablet PO (09:02)
[2019-09-19] MEDS: docusate sodium 100 mg Capsule PO (09:02)
[2019-09-19] MEDS: predniSONE 20 mg Tablet 40 MG PO (09:02)
[2019-09-19 11:19] LABS: Glucose Point of Care 88 mg/dL (70-110)
--- NOTE | 2019-09-19 11:35 | PM.PN ---
Subjective Subjective: Interval history: Renee reports she feels a little bit better. Still wheezing some. According to family she is having some confusion at night now. Not so much during the day. She is improved quite a bit overall but still wheezing quite a bit and probably needs 1 more day. Medications: Reviewed: Yes Vitals/I&O/Wt Last Vital Signs Temp 98.0 F 09/19/19 07:40 Pulse 69 09/19/19 11:25 Resp 16 09/19/19 11:15 BP 131/64 09/19/19 07:40 Pulse Ox 96 09/19/19 11:15 09/18/19 09/19/19 09/19/19 22:59 06:59 14:59 Intake Total 960 / 1540 21.458 / 1561.458 388.542 / 388.542 Output Total 200 / 200 Balance 960 / 1540 -178.542 / 1361.458 388.542 / 388.542 Weight last 48 hrs Weight 86.324 kg Physical Exam Narrative: EXAM NARRATIVE: General: No acute distress, Alert. Well nourished. Heart: Regular rate and rhythm. No murmurs, rubs or gallops. Normal capillary refill. Lungs: No significant crackles. Does have some expiratory wheezes and rhonchi Abdomen: Positive bowel sounds. Non-tender, non-distended. No hepatosplenomegaly. No gaurding. Extremities: No clubbing, cyanosis, or edema. Negative Greyson's A&P Assessment and plan (1) Pneumonia: Overall improving in general. She still coughing quite a bit and wheezing quite a bit. I think she would benefit from 1 more day here. Anticipate discharge to rehab tomorrow.. Status: Acute Qualifiers: Laterality: right Lung location: lower lobe of lung Pneumonia type: due to unspecified organism Qualified Code(s): J18.9 - Pneumonia, unspecified organism Code(s): J18.9 - Pneumonia, unspecified organism (2) Diabetes: Blood sugars doing okay. We will continue to monitor with adding steroids. Status: Acute Code(s): E11.9 - Type 2 diabetes mellitus without complications Attestations Medical Necessity Statement*: Patient is an 84-year-old female with COPD and pneumonia requiring continued IV inpatient treatments and monitoring. 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
--- NOTE | 2019-09-19 11:40 | PC.SOCIAL ---
IMM Updated Page 2 of IMM updated and given to patient. Initialed, dated, and timed and placed back in chart.
[2019-09-19 17:03] LABS: Glucose Point of Care 134 mg/dL (70-110)
[2019-09-19 22:25] LABS: Glucose Point of Care 267 mg/dL (70-110)
[2019-09-20] VITALS (10 sets, daily range): BP systolic 137–144; BP diastolic 70–76; PULSE 63–78; RESP 16–19; TEMP 36.5–37.1; O2SAT 90–97
[2019-09-20] MEDS: ipratropium-albuterol 3 mL Neb INHALATION ×6 (00:39→10:59)
[2019-09-20] MEDS: acetaminophen 325 mg Tablet 650 MG PO (00:55)
[2019-09-20 05:05] LABS: Vancomycin Trough 14.2 ug/mL (10-15)
[2019-09-20] MEDS: piperacillin-tazobactam 3.375 GM in sodium chloride 0.9% (plus) 50 ML IV (05:33)
[2019-09-20] MEDS: sodium chloride 0.9% 250 ML (05:36)
[2019-09-20 06:26] LABS: Glucose Point of Care 165 mg/dL (70-110)
--- NOTE | 2019-09-20 07:01 | PM.DCS ---
Discharge Providers Date of Admission: 09/14/19 22:05 Date of Discharge: 09/20/19 Attending Provider at Admission: Alvino Kimble MD Attending Provider at Discharge: Alvino Kimble MD Primary Care Provider: Alvino Kimble MD Diagnoses at Discharge Discharge Diagnosis (1) Pneumonia: Status: Acute Qualifiers: Laterality: right Lung location: lower lobe of lung Pneumonia type: due to unspecified organism Qualified Code(s): J18.9 - Pneumonia, unspecified organism (2) Diabetes: Status: Acute Reason for Visit Reason for Visit: Reason For Visit: COLD AND COUGH Hospital Course Hospital Course: Patient is admitted to the hospital for pneumonia and coughing. She received IV antibiotics and IV steroids. She received aggressive respiratory support as well. She improved over the next several days. She had clearing of her chest x-ray. Labs have improved. O2 saturations improved with requirements going from 6 L down to 3 L by the time of discharge. She was still having some significant cough and rib pain secondary to her coughing but this always improving. Patient also had some evidence of sundowning in the evenings. Remeron was tried and seems to be helping some. We will continue this as well. Patient is very weak and will need rehab for the next week or 2. Physical Exam Narrative: EXAM NARRATIVE: General: No acute distress, Alert. Well nourished. Heart: Regular rate and rhythm. No murmurs, rubs or gallops. Normal capillary refill. Lungs: No significant crackles. Does have some expiratory wheezes and rhonchi Abdomen: Positive bowel sounds. Non-tender, non-distended. No hepatosplenomegaly. No gaurding. Extremities: No clubbing, cyanosis, or edema. Negative Greyson's Discharge Data Data Completed and Pending: Completed Studies During Hospitalization Category Date Time Status XR chest 1V ramiro ble [id number] Urgent Exams 09/14/19 03:12 Completed Labs from last 24 hours 09/20/19 09/20/19 09/19/19 06:20 04:30 22:21 POC Glucose 165 267 Vancomycin Trough 14.2 09/19/19 09/19/19 16:47 11:15 POC Glucose 134 88 Vancomycin Trough Vitals: Last Vital Signs Temp 98.7 F 09/20/19 03:07 Pulse 67 01/07/20 03:20 Resp 18 09/20/19 03:20 BP 138/70 09/20/19 03:07 Pulse Ox 97 09/20/19 03:20 Discharge Plan Discharge Patient Disposition: Rehab Fac w Plan Readm Condition: Stable Prescriptions: New ipratropium-albuterol 0.5 mg-3 mg(2.5 mg base)/3 mL Solution For Nebulization 3 ml inhalation Q4H.RESPIRATORY PRN (Reason: Shortness Of Breath) Qty: 100 RF: 0 mirtazapine 15 mg Tablet 7.5 mg PO BEDTIME Qty: 30 RF: 0 prednisone 20 mg Tablet 20 mg PO DAILY Qty: 20 RF: 0 Continued levothyroxine 100 mcg Tablet 100 mcg PO DAILY RF: 0 spironolactone 100 mg Tablet 100 mg PO DAILY RF: 0 propranolol 60 mg Tablet 60 mg PO DAILY RF: 0 aspirin [Aspirin Low Dose] 81 mg Tablet,Delayed Release (Dr/Ec) 81 mg PO DAILY RF: 0 alprazolam 0.5 mg Tablet 0.5 mg PO BID PRN (Reason: Anxiety) RF: 0 meclizine 25 mg Tablet 25 mg PO QID PRN (Reason: dizziness) RF: 0 albuterol sulfate [Ventolin HFA] 90 mcg/actuation Hfa Aerosol Inhaler 2 puff INHALATION Q4H PRN (Reason: Shortness Of Breath) RF: 0 Novolog Mix 70-30FlexPen U-100 100 unit/mL (70-30) Insulin Pen See Rx Instructions .ROUTE .COMPLEX RF: 0 docusate sodium [Colace] 100 mg Capsule 100 mg PO DAILY RF: 0 Discontinued levofloxacin [Levaquin] 500 mg Tablet 500 mg PO DAILY RF: 0 vitamin K2 40 mcg Tablet 100 mcg PO EVERY OTHER DAY RF: 0 Discharge Orders: Discharge Order (Routine); Ordered 09/20/19 Ordered By: Alvino Kimble Referrals: Alvino Kimble MD [Primary Care Provider] - Discharge Diet: Diabetic Discharge Activity: As per PT/OT instructions Activity Restrictions/Additional Instructions: Discharge to rehab facility -Follow-up with Dr. 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
[2019-09-20] MEDS: propranolol 40 mg Tablet 60 MG PO (08:44)
[2019-09-20] MEDS: docusate sodium 100 mg Capsule PO (08:44)
[2019-09-20] MEDS: predniSONE 20 mg Tablet 40 MG PO (08:45)
[2019-09-20] MEDS: aspirin 81 mg EC Tablet PO (08:45)
[2019-09-20] MEDS: levothyroxine 100 mcg Tablet PO (08:45)
[2019-09-20] MEDS: spironolactone 25 mg Tablet 100 MG PO (08:45)
== END 2019-09-20 10:56 | disposition skilled nursing facility (03) | DRG 195 ==
LOC: ER 05:30 → CSU 16:09 → MEDSURG 22:03
PROVIDERS: Internal Medicine; Nurse Practitioner Family; Admitting Provider Family Medicine; Emergency Provider Emergency Medicine; Family Provider Family Medicine; PCP Family Medicine; Visit Provider Family Medicine
DX: J18.9 Pneumonia, unspecified organism (principal); E11.9 Type 2 diabetes mellitus without complications; I10 Essential (primary) hypertension; E03.9 Hypothyroidism, unspecified; Z79.82 Long term (current) use of aspirin; Z86.73 Personal history of transient ischemic attack (TIA), and cerebral infarction without residual deficits
CPT/HCPCS: 36415; 36416; 71045; 80048; 80053; 80202; 82607; 82962; 83605; 84443; 85025; 86140; 94640; 94664; 94669; 96372; 96375; 97110; 97116; 97161; 97165; 97530; 97535; 99221; 99281; G0378; J0456; J0696; J1815; J2001; J2543; J2930; J3370; J7030; J7050; J7512; J7611

== ENCOUNTER 2019-09-21 10:21 | Outpatient (RCR) | payer OTHER, SELFPAY ==
[2019-09-21 10:49] LABS: Basophils % 0.3 %; Eosinophils # 0.1 10^3/uL (0.0-0.8); Hematocrit 42.7 % (37.0-47.0); Lymphocytes # 1.4 10^3/uL (0.8-4.8); Lymphocytes % 14.6 %; Mean Corpuscular HGB Conc 32.8 g/dL (30.0-36.0); Mean Corpuscular Hemoglobin 34.4 pg (28.0-34.0); Mean Corpuscular Volume 104.9 fL (81-99); Mean Platelet Volume 9.9 fL (7.4-10.4); Monocytes # 0.7 10^3/uL (0.2-0.9); Monocytes % 7.1 %; Neutrophils # 7.2 10^3/uL (1.8-7.7); Neutrophils % 73.8 %; Nucleated Red Blood Cells % 0 %; Platelet Count 116 10^3/cmm (130-400); Red Blood Count 4.07 10^6/uL (4.1-5.3); Red Cell Distribution Width 12.2 % (12.1-15.1); White Blood Count 9.7 10^3/uL (4.0-10.0)
[2019-09-21 11:15] LABS: Alanine Aminotransferase 46 U/L (0-33); Albumin Level 3.8 g/dL (3.5-5.2); Alkaline Phosphatase 82 IU/L (35-105); Anion Gap 11.5 (5-19); Aspartate Amino Transferase 47 U/L (0-32); Blood Urea Nitrogen 21 mg/dL (8-23); Calcium 9.3 mg/Dl (8.8-10.2); Carbon Dioxide 34 mmol/L (22-29); Chloride 100 mmol/L (98-107); Globulin 2.2 g/dL (1.3-4.6); Glucose 152 mg/dL (74-106); Potassium 4.5 mmol/L (3.5-5.1); Sodium 141 mmol/L (136-145); Thyroid Stimulating Hormone 5.18 uIU/mL (0.27-4.20); Total Bilirubin 1.1 mg/dL (0.15-1.2)
[2019-09-21 13:22] LABS: Estmated Average Glucose 186; Hemoglobin A1C 8.1 % (4.0-6.0)
== END 2019-10-14 23:59 | disposition home or self-care (01) ==
LOC: LAB 10:21
PROVIDERS: Family Provider Family Medicine; PCP Family Medicine; Visit Provider Dermatology
DX: E11.9 Type 2 diabetes mellitus without complications (principal); E03.8 Other specified hypothyroidism; E56.9 Vitamin deficiency, unspecified
CPT/HCPCS: 80053; 83036; 84443; 85025

== ENCOUNTER 2020-01-28 18:47 | Emergency (ER) | payer MEDICARE, OTHER, SELFPAY ==
[2020-01-28 18:50] VITALS: BP 138/56; PULSE 62; RESP 17; TEMP 36.7; O2SAT 92; BMI 35.2
--- NOTE | 2020-01-28 19:05 | XRR_ITS ---
PROCEDURE INFORMATION: Exam: XR Right Humerus Exam date and time: 01/28/2020 7:58 PM Age: 85 years old Clinical indication: Pain and injury or trauma; Fall; Initial encounter; Blunt trauma (contusions or hematomas; Arm, upper; Right; Upper arm TECHNIQUE: Imaging protocol: XR Right humerus Views: 2 or more views. COMPARISON: No relevant prior studies available. FINDINGS: Comminuted fractures through the proximal right humeral neck, with fracture lines extending to involve the greater tuberosity, which is mildly displaced. There is about 2-3 mm of lateral displacement of the greater tuberosity. No other significant acute bone or joint abnormality. 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 XR/[place] [id number] IMPRESSION: 1. Fractures of the proximal right humerus, details above. 2. Other details discussed above.
--- NOTE | 2020-01-28 19:05 | XRR_ITS ---
PROCEDURE INFORMATION: Exam: XR Right Wrist Exam date and time: 01/28/2020 8:03 PM Age: 85 years old Clinical indication: Injury or trauma; Fall; Initial encounter; Blunt trauma (contusions or hematomas; Wrist; Right TECHNIQUE: Imaging protocol: XR Right wrist. Views: 3 or more views. COMPARISON: CR Hand 3 views, RIGHT* [id number] 06/15/2017 12:16 PM FINDINGS: Bones/joints: Normal. Soft tissues: Normal. XR/XR wrist RT min 3V* [id number] IMPRESSION: No acute findings.
--- NOTE | 2020-01-28 19:05 | W.ED.FALL ---
HPI - Fall General: Chief Complaint: Fall Stated Complaint: RIGHT SHOULDER AND BACK PAIN S/P FALL Time Seen by Provider: 01/28/20 18:49 Source: patient Mode of arrival: EMS Limitations: no limitations History of Present Illness: HPI Narrative: Patient is a very nice 85-year-old female who presents to ED today for evaluation following a fall. Patient states she was in a new home that her daughter had just purchased and the new floors were very slick causing her to slip and fall. She states she fell onto her right side and complains of right shoulder and right arm pain as well as back pain. Patient states she might have struck her head stating I do not remember . She does not believe she lost consciousness at any point. complaint: fall Onset (ago): minute(s) Fall from: standing Fall witnessed: yes, by family Place fall occurred: home (daughter's home) Loss of consciousness: None Prolonged down time: no Symptoms prior to fall: none Context: tripped/slipped Associated symptoms-after fall: Denies abdominal pain, chest pain, headache(s), lightheadedness or neck pain Review of Systems Const: Denies: fever(s) or chills Eyes: Denies: change in vision, blurry vision, photophobia, floaters or seeing flashes Card: Denies: chest pain, palpitations, irregular heart rhythm, lightheadedness, syncope or pre-syncope Resp: Denies: dyspnea or chest congestion GI: Reports: nausea (reports some nausea from pain meds given by EMS); Denies: abdominal pain or vomiting Musc: Reports: back pain, extremity pain, joint pain and limited range of motion; Denies: neck pain, extremity swelling or joint swelling Neuro: Denies: headache(s), numbness in extremities, weakness in extremities or sensory changes PFSH ED PFSH: Medical History (Updated 01/28/20 @ 20:54 by ELLIOT Dunbar) Cirrhosis of liver normal labs and biopsy. Had esophageal varices. Etiology unclear. CVA (cerebral vascular accident) Diabetes Glaucoma Hypertension Hypothyroid Lichen planus Surgical History (Updated 09/14/19 @ 21:17 by Alvino Kimble MD) H/O bilateral cataract extraction H/O: section History of cholecystectomy History of hysterectomy Family History (Updated 09/14/19 @ 17:17 by Chelsi Schafer RN) Other Unknown family medical history Social History (Updated 09/14/19 @ 21:19 by Alvino Kimble MD) Smoking and tobacco status: never smoked Alcohol intake: never Marital status: / Physical Exam Const: COMMON NORMALS: no acute distress, average body habitus, patient oriented x3, no limitations, healthy appearing, alert and well nourished ORIENTATION/CONSCIOUSNESS: Yes oriented to person, Yes oriented to place and Yes oriented to time HENMT: COMMON NORMALS: normocephalic and atraumatic HEAD & SCALP: normocephalic and atraumatic Neck/C-Spine: OTHER: pt in soft c-collar; ROM testing not performed Chest: COMMONS NORMALS: normal inspection of the chest and normal palpation of entire chest wall Resp: COMMON NORMALS: normal respiratory effort and clear to auscultation bilaterally AUSCULTATION: clear to auscultation bilaterally Cardio: COMMON NORMALS: regular rate and regular rhythm RATE: regular rate RHYTHM: regular rhythm GI: COMMON NORMALS: Normal to inspection, nondistended, normoactive bowel sounds present, Soft to palpation, non-tender, No hepatosplenomegaly present and no masses PALPATION: Yes Soft to palpation and Yes No hepatosplenomegaly present Back/Pelvis: THORACIC SPINE/UPPER BACK: Yes thoracic spinal tenderness (upper mid t spine; no step offs) LUMBAR SPINE/LOWER BACK: No lumbar spinal tenderness and No paraspinal muscle tenderness Extremity: GENERAL: Yes normal exam except as noted OTHER: pt very tender to palpation of R shoulder/humerus; no ROM elicited as this caused too much pain; swelling noted to R wrist-minimal tenderness here; radial pulse intact; sensory intact Neuro: DELVIS COMA SCALE: document GCS findings Delvis coma scale eye opening: Spontaneous [place] coma scale verbal response: Orientated [place] coma scale motor response: Obey commands Delvis coma scale total score: 15 COMMON NORMALS: patient oriented x3 and no sensory deficits noted SENSORIUM/ORIENTATION: Yes alert, Yes oriented to person, Yes oriented to place and Yes oriented to time Course Vital Signs: Vital signs: Vital Signs Temperature 98.0 F 01/28/20 18:50 Pulse Rate 62 01/28/20 18:50 Respiratory Rate 17 01/28/20 18:50 Blood Pressure 138/56 01/28/20 18:50 Pulse Oximetry 92 01/28/20 18:50 MDM - Fall MDM Narrative: Medical decision making narrative: spoke to her son in [place] and he stated daughter can stay with her tonight; she was placed in a sling for her humeral head fx; information placed with CM to get her set up with orthopedics next week for re-evaluation Imaging Data^: CT head: Radiologist's impression: [address] [place] [address] CT Scan Report Signed Patient: Renee Dhaliwal Unit #: [id number] : 1935 Age/Sex: 85 / F ADM Date: 01/28/20 Loc: ER Room/Bed: Attending Dr: Ordering Provider/Ordering MD: Perla Navas Date of Service: 01/28/20 Procedure(s): CT head wo con* [id number] Accession Number(s): [id number] Report Number: [id number] PROCEDURE INFORMATION: Exam: CT Head Without Contrast Exam date and time: 01/28/2020 7:17 PM Age: 85 years old Clinical indication: Injury or trauma; Fall; Initial encounter; Blunt trauma (contusions or hematomas); Consciousness not specified; Patient HX: Tripped and fell into a wall unsure loc small abrasion to forehead TECHNIQUE: Imaging protocol: Computed tomography of the head without contrast. Radiation optimization: All CT scans at this facility use at least one of these dose optimization techniques: automated exposure control; mA and/or kV adjustment per patient size (includes targeted exams where dose is matched to clinical indication); or iterative reconstruction. COMPARISON: CT head wo con* [id number] 06/15/2017 12:54 PM RADIATION DOSE METRICS: Total DLP: 732.16 mGy-cm FINDINGS: Brain: There is mild diffuse cerebral atrophy present, consistent with this patient's age. Periventricular and subcortical white matter low densities are present which at this age likely represent microvascular ischemic change. No evidence for large acute ischemic infarction. Please note acute ischemia can be occult by head CT. Benign globus pallidus calcifications are present. Ventricles: Normal. No ventriculomegaly. Bones/joints: Unremarkable. No acute fracture. Sinuses: Visualized sinuses are unremarkable. No fluid levels. Mastoid air cells: Visualized mastoid air cells are well aerated. Soft tissues: Unremarkable. CT/CT head wo con* [id number] IMPRESSION: There are senescent changes of the brain as described above. No evidence for large acute ischemic infarction or acute intracranial injury. Radiation Dose CTDIVOL = (mGy): DLP = 732.16 (mGy-cm) Dictated By: Mariana Mora MD Signed By: Mariana Mora MD Signed Date/Time: 01/28/201955 DD/ 53 CT cervical: Radiologist's impression: [facility] [address] [place] [address] CT Scan Report Signed Patient: Renee Dhaliwal Unit #: [id number] : 1935 Age/Sex: 85 / F ADM Date: 01/28/20 Loc: ER Room/Bed: Attending Dr: Ordering Provider/Ordering MD: Perla Navas Date of Service: 01/28/20 Procedure(s): CT cervical spin wo con* [id number] Accession Number(s): [id number] Report Number: [id number] PROCEDURE INFORMATION: Exam: CT Cervical Spine Without Contrast Exam date and time: 01/28/2020 7:17 PM Age: 85 years old Clinical indication: Injury or trauma; Fall; Initial encounter; Blunt trauma; Patient HX: Tripped and fell into a wall TECHNIQUE: Imaging protocol: Computed tomography images of the cervical spine without contrast. Radiation optimization: All CT scans at this facility use at least one of these dose optimization techniques: automated exposure control; mA and/or kV adjustment per patient size (includes targeted exams where dose is matched to clinical indication); or iterative reconstruction. COMPARISON: CT Cervical Spine wo* [id number] 06/15/2017 12:57 PM RADIATION DOSE METRICS: Total DLP: 640.08 mGy-cm FINDINGS: Vertebrae: Chronic appearing mild anterior wedging of the C5 and C6 superior endplates with associated cystic changes and marginal osteophyte formations. Discs/Spinal canal/Neural foramina: There are degenerative changes throughout the visualized spine including marginal osteophyte formations, endplate degenerative changes, and facet arthropathy. Multilevel disc space narrowing. There are multilevel broad-based disc osteophyte complexes which indent the anterior thecal sac . Soft tissues: There is chronic appearing soft tissue thickening with associated calcifications posterior to the dens. There are benign-appearing soft tissue calcifications. Lungs: Lung apices are normal. CT/CT cervical spin wo con* [id number] IMPRESSION: There are degenerative changes as described above. No evidence for acute fracture. Radiation Dose CTDIVOL = (mGy): DLP = 640.08 (mGy-cm) Dictated By: Mariana Mora MD Signed By: Mariana Mora MD Signed Date/Time: 01/28/202001 DD/ 99 CT thoracic: Radiologist's impression: [place] [address] CT Scan Report Signed Patient: Renee Dhaliwal Unit #: [id number] : 1935 Age/Sex: 85 / F ADM Date: 01/28/20 Loc: ER Room/Bed: Attending Dr: Ordering Provider/Ordering MD: Perla Navas Date of Service: 01/28/20 Procedure(s): CT thoracic spin wo con* [id number] Accession Number(s): [id number] Report Number: [id number] PROCEDURE INFORMATION: Exam: CT Thoracic Spine Without Contrast Exam date and time: 01/28/2020 7:17 PM Age: 85 years old Clinical indication: Injury or trauma; Fall; Initial encounter; Blunt trauma (contusions or hematomas); Patient HX: Tripped and fell into a wall TECHNIQUE: Imaging protocol: Computed tomography images of the thoracic spine without contrast. Radiation optimization: All CT scans at this facility use at least one of these dose optimization techniques: automated exposure control; mA and/or kV adjustment per patient size (includes targeted exams where dose is matched to clinical indication); or iterative reconstruction. COMPARISON: MRI Thoracic Spine w/o* [id number] 12/30/2018 9:09 AM RADIATION DOSE METRICS: Total DLP: 1863.53 mGy-cm FINDINGS: Vertebrae: Prominent thoracic kyphosis. There are chronic anterior compression deformities of the T6, T7, and T8 vertebra. No acute fracture visualized. 6 mm benign hemangioma in the T7 vertebra. There are degenerative changes throughout the visualized spine including marginal osteophyte formations, endplate degenerative changes, and facet arthropathy. Discs/Spinal canal/Neural foramina: No significant disc protrusion. No severe spinal canal stenosis. No significant neural foraminal narrowing. Soft tissues: Unremarkable. Other findings: Multilevel disc space narrowing. CT/CT thoracic spin wo con* [id number] IMPRESSION: There are chronic anterior compression deformities of the T6, T7 and T8 vertebra. No acute fracture visualized. Radiation Dose CTDIVOL = (mGy): DLP = 1863.53 (mGy-cm) Dictated By: Mariana Mora MD Signed By: Mariana Mora MD Signed Date/Time: 01/28/202004 DD/ 03 R shoulder XR: Radiologist's impression: [address] [address] XRay Report Signed Patient: Renee Dhaliwal Unit #: [id number] : 1935 Age/Sex: 85 / F ADM Date: 01/28/20 Loc: ER Room/Bed: Attending Dr: Ordering Provider/Ordering MD: Perla Navas Date of Service: 01/28/20 Procedure(s): XR shoulder RT min 2V* [id number] Accession Number(s): [id number] Report Number: [id number] PROCEDURE INFORMATION: Exam: XR Right Shoulder Exam date and time: 01/28/2020 7:58 PM Age: 85 years old Clinical indication: Injury or trauma; Fall; Initial encounter; Blunt trauma (contusions or hematomas and fracture, traumatic injury; Closed fracture; Shoulder; Right; Humerus TECHNIQUE: Imaging protocol: XR Right shoulder. Views: 2 or more views. COMPARISON: CR Shoulder 2+ views RIGHT* [id number] 01/31/2019 5:50 PM FINDINGS: Bones/joints: Comminuted fracture through the humeral head neck junction and greater tuberosity of the humeral head. There are moderate degenerative changes across the acromioclavicular joint. There is an elbow joint effusion. Soft tissues: Edema and/or hematoma is present in the soft tissues adjacent to the fracture site. XR/XR shoulder RT min 2V* [id number] IMPRESSION: Comminuted fracture through the humeral head neck junction and greater tuberosity of the humeral head. Dictated By: Mariana Mora MD Signed By: Mariana Mora MD Signed Date/Time: 01/28/202027 DD/ 25 R wrist XR: Radiologist's impression: [address] [address] XRay Report Signed Patient: Renee Dhaliwal Unit #: [id number] : 1935 Age/Sex: 85 / F ADM Date: 01/28/20 Loc: ER Room/Bed: Attending Dr: Ordering Provider/Ordering MD: Perla Navas Date of Service: 01/28/20 Procedure(s): XR wrist RT min 3V* [id number] Accession Number(s): [id number] Report Number: [id number] PROCEDURE INFORMATION: Exam: XR Right Wrist Exam date and time: 01/28/2020 8:03 PM Age: 85 years old Clinical indication: Injury or trauma; Fall; Initial encounter; Blunt trauma (contusions or hematomas; Wrist; Right TECHNIQUE: Imaging protocol: XR Right wrist. Views: 3 or more views. COMPARISON: CR Hand 3 views, RIGHT* [id number] 06/15/2017 12:16 PM FINDINGS: Bones/joints: Normal. Soft tissues: Normal. XR/XR wrist RT min 3V* [id number] IMPRESSION: No acute findings. Dictated By: Mariana Mora MD Signed By: Mariana Mora MD Signed Date/Time: 01/28/202026 DD/ 24 Discharge Plan Discharge Patient Disposition: Home, Self-Care Clinical Impression: Fall from slipping Qualifiers: Encounter type: initial encounter Qualified Code(s): W01.0XXA - Fall on same level from slipping, tripping and stumbling without subsequent striking against object, initial encounter Fracture of head of humerus Qualifiers: Encounter type: initial encounter Fracture type: closed Laterality: right Qualified Code(s): S42.291A - Other displaced fracture of upper end of right humerus, initial encounter for closed fracture Condition: Stable Prescriptions: New hydrocodone-acetaminophen 5-325 mg tablet 1 tab PO Q4H PRN (Reason: pain) Qty: 20 RF: 0 No Action levothyroxine 100 mcg Tablet 100 mcg PO DAILY RF: 0 spironolactone 100 mg Tablet 100 mg PO DAILY RF: 0 propranolol 60 mg Tablet 60 mg PO DAILY RF: 0 aspirin [Aspirin Low Dose] 81 mg Tablet,Delayed Release (Dr/Ec) 81 mg PO DAILY RF: 0 alprazolam 0.5 mg Tablet 0.5 mg PO BID PRN (Reason: Anxiety) RF: 0 meclizine 25 mg Tablet 25 mg PO QID PRN (Reason: dizziness) RF: 0 albuterol sulfate [Ventolin HFA] 90 mcg/actuation Hfa Aerosol Inhaler 2 puff INHALATION Q4H PRN (Reason: Shortness Of Breath) RF: 0 Novolog Mix 70-30FlexPen U-100 100 unit/mL (70-30) Insulin Pen See Rx Instructions .ROUTE .COMPLEX RF: 0 docusate sodium [Colace] 100 mg Capsule 100 mg PO DAILY RF: 0 ipratropium-albuterol 0.5 mg-3 mg(2.5 mg base)/3 mL Solution For Nebulization 3 ml inhalation Q4H.RESPIRATORY PRN (Reason: Shortness Of Breath) Qty: 100 RF: 0 prednisone 20 mg Tablet 20 mg PO DAILY Qty: 20 RF: 0 mirtazapine 15 mg Tablet 7.5 mg PO BEDTIME Qty: 30 RF: 0 Discharge Orders: Discharge Order (Routine); Ordered 01/28/20 Ordered By: Perla Navas Referrals: Alvino Kimble MD [Primary Care Provider] - Patient Instructions: Fractures - Humerus, Arm Fracture in Adults (ED) Activity Restrictions/Additional Instructions: As discussed wear your sling at all times apart from showering or bathing. Case management should contact you on Thursday to set you up with your orthopedic appointment. You may use the pain medications as directed for discomfort. Coding Level of Care Code ED Talent Associate for Jani Fwd Exam Comprehensive
[2020-01-28 19:57] VITALS: BP 128/54; PULSE 60; RESP 16; O2SAT 96
[2020-01-28 21:27] VITALS: BP 136/62; PULSE 66; RESP 16; O2SAT 97
[2020-01-28] MEDS: fentaNYL 50 mcg/mL INJ 2mL 25 MCG IVP (21:29)
--- NOTE | 2020-01-30 13:53 | DCPLANNER ---
meat sales and storage manager had message to schedule a follow up appointment for patient with ortho. meat sales and storage manager called the ortho clinic, spoke with Nupur, gave clinic patients information. meat sales and storage manager was told that patients information would be printed and reviewed. Clinic will call rehabilitation case coordinator and patient with appointment information.
--- NOTE | 2020-02-01 14:01 | DCPLANNER ---
Patient had an appointment scheduled for 02.01.20 with ortho, patient did attend the appointment.
== END 2020-01-28 22:17 | disposition home or self-care (01) ==
PROVIDERS: Emergency Provider Physician Assistant; PCP Family Medicine
DX: S42.301A Unspecified fracture of shaft of humerus, right arm, initial encounter for closed fracture (principal); W01.0XXA Fall on same level from slipping, tripping and stumbling without subsequent striking against object, initial encounter; Z79.82 Long term (current) use of aspirin; Z79.4 Long term (current) use of insulin; Z86.73 Personal history of transient ischemic attack (TIA), and cerebral infarction without residual deficits; E11.9 Type 2 diabetes mellitus without complications; I10 Essential (primary) hypertension
CPT/HCPCS: 12345; 70450; 72125; 72128; 73030; 73060; 73110; 96374; 99282; 99283; J3010

== ENCOUNTER → 2020-02-01 10:47 | Outpatient (BNVA) | payer MEDICARE, OTHER, SELFPAY | PROVIDERS: PCP Family Medicine; Visit Provider Specialist | DX: S42.291A Other displaced fracture of upper end of right humerus, initial encounter for closed fracture (principal); S42.251A Displaced fracture of greater tuberosity of right humerus, initial encounter for closed fracture; X58.XXXA Exposure to other specified factors, initial encounter | CPT/HCPCS: 73030; 73080 ==

== ENCOUNTER 2020-02-01 14:26 | Outpatient (CLI) | payer MEDICARE, OTHER, SELFPAY | END 2020-02-01 14:27 | disposition home or self-care (01) | LOC: SPT 14:26 | PROVIDERS: PCP Family Medicine; Visit Provider Specialist | DX: Z46.89 Encounter for fitting and adjustment of other specified devices (principal); S42.291D Other displaced fracture of upper end of right humerus, subsequent encounter for fracture with routine healing; X58.XXXD Exposure to other specified factors, subsequent encounter; S42.291A Other displaced fracture of upper end of right humerus, initial encounter for closed fracture; S42.251A Displaced fracture of greater tuberosity of right humerus, initial encounter for closed fracture; X58.XXXA Exposure to other specified factors, initial encounter | CPT/HCPCS: 73030; 73080; 97760; L3670 ==

== ENCOUNTER → 2020-02-27 10:04 | Outpatient (BNVA) | payer MEDICARE, OTHER, SELFPAY | PROVIDERS: PCP Family Medicine; Visit Provider Specialist | DX: S42.211D Unspecified displaced fracture of surgical neck of right humerus, subsequent encounter for fracture with routine healing (principal); X58.XXXD Exposure to other specified factors, subsequent encounter | CPT/HCPCS: 73030 ==

== ENCOUNTER 2020-03-19 21:06 | Observation (INO) | payer MEDICARE, OTHER, SELFPAY ==
[2020-03-19 21:08] VITALS: BP 141/64; PULSE 69; RESP 17; TEMP 36.7; O2SAT 95; BMI 34.7
--- NOTE | 2020-03-19 21:31 | CTR_ITS ---
PROCEDURE INFORMATION: Exam: CT Cervical Spine Without Contrast Exam date and time: 03/19/2020 9:44 PM Age: 85 years old Clinical indication: Injury or trauma; Initial encounter; Blunt trauma; Patient HX: Fall - C/O back of head hurts; Additional info: Fall inj TECHNIQUE: Imaging protocol: Computed tomography images of the cervical spine without contrast. Radiation optimization: All CT scans at this facility use at least one of these dose optimization techniques: automated exposure control; mA and/or kV adjustment per patient size (includes targeted exams where dose is matched to clinical indication); or iterative reconstruction. COMPARISON: CT cervical spin wo con* [id number] 01/28/2020 7:34 PM FINDINGS: There is mild multilevel malalignment, likely secondary to degenerative changes. Height of cervical bodies appears within normal limits. There are moderate multilevel degenerative changes in the cervical spine. There appears to be spinal canal narrowing. Further assessment cannot be made of the cervical spinal canal or its contents due to artifacts. No convincing acute fracure is demonstrated when allowing for the degenerative changes. Consider MRI of cervical spine for further assessment if clinically warranted, particularly for further assessment of the spinal canal and its contents, spinal cord, nerve roots, intervertebral disks, ligaments, other spinal soft tissues, bone edema, etc., if patient has no contraindication to MRI. There are prominent calcifications at left CCA bifurcation, consider further imaging to assess for carotid stenosis. A portion of cervical left carotid artery is retropharyngeal. CT/CT cervical spin wo con* [id number] IMPRESSION: No convincing acute fracture is demonstrated when allowing for moderate degenerative changes as discussed above. Total DLP (mGy-cm): 512.82 Radiation Dose CTDIVOL = (mGy): DLP = 512.82 (mGy-cm)
--- NOTE | 2020-03-19 21:31 | XR_ITS ---
WS: [id number] PORTABLE CHEST HISTORY: fall COMPARISON: 09/14/2019 No pneumonia or pulmonary venous congestion. No pleural effusion or pneumothorax. Cardiac size: Moderately enlarged cardiac silhouette. Mediastinum/Aorta: Moderate atherosclerosis aorta. Nondisplaced fracture RIGHT humeral neck. XR/XR chest 1V portable [id number] IMPRESSION: Cardiomegaly and calcified thoracic aorta. No acute cardiopulmonary disease.
--- NOTE | 2020-03-19 21:31 | XR_ITS ---
WS: [id number] RIGHT SHOULDER: 3 VIEW(S) TECHNIQUE: Internal and external rotation with Y view. HISTORY: fall COMPARISON: 02/27/2020 Healing fracture through the proximal RIGHT humerus involving the neck. There is also avulsion of the greater tuberosity. Similar to the prior study. No new fracture or displacement. Mild narrowing of the glenohumeral joint and the AC joint. XR/XR shoulder RT min 2V* 16495 IMPRESSION: Partially healed fracture involving the RIGHT humeral neck with no new fracture s.
--- NOTE | 2020-03-19 21:31 | CTR_ITS ---
PROCEDURE INFORMATION: Exam: CT Head Without Contrast Exam date and time: 03/19/2020 9:44 PM Age: 85 years old Clinical indication: Injury or trauma; Initial encounter; Blunt trauma (contusions or hematomas); Without loss of consciousness; Patient HX: Fall - C/O back of head hurts; Additional info: Fall, head inj TECHNIQUE: Imaging protocol: Computed tomography of the head without contrast. Radiation optimization: All CT scans at this facility use at least one of these dose optimization techniques: automated exposure control; mA and/or kV adjustment per patient size (includes targeted exams where dose is matched to clinical indication); or iterative reconstruction. COMPARISON: CT head wo con* [id number] 01/28/2020 7:32 PM FINDINGS: Examination is limited by artifacts from patient motion. There is mild low density in the bilateral periventricular white matter which may represent chronic small vessel ischemic disease in the appropriate clinical setting. There are prominent intracranial arterial calcifications. There is moderate cerebral cortical volume loss. Ventricles do not appear significantly dilated. No definite depressed calvarial fracture is demonstrated. Visualized paranasal sinuses and mastoid air cells demonstrate no significant opacification. CT/CT head wo con* [id number] IMPRESSION: Examination is limited by artifacts from patient motion. Probable chronic ischemic changes as discussed above. Total DLP (mGy-cm): 777.02 Radiation Dose CTDIVOL = (mGy): DLP = 777.02 (mGy-cm)
--- NOTE | 2020-03-19 21:32 | ECG_ITS ---
[facility] Test Date: 2020-03-19 Pat Name: Renee Dhaliwal Department: Room: Gender: Female [employer] Operator: : 1935 Requested By: Lex Paz Order Number: [id number] Ravinder MD: Pedro Luis Christine M.D. Measurements Intervals [place] Rate: 70 P: 68 LA: 161 QRS: 54 QRSD: 89 T: 30 QT: 343 QTc: 370 Interpretive Statements SINUS RHYTHM NONSPECIFIC T-WAVE ABNORMALITY Compared to ECG 09/10/2016 11:47:02 T-wave abnormality now present Electronically Signed On 03-20-2020 16:53:45 CDT by Pedro Luis Christine M.D. [email or web address]
[2020-03-19 21:51] VITALS: BP 156/56; PULSE 72; RESP 16; O2SAT 93
[2020-03-19 21:54] LABS: Basophils # 0.1 10^3/uL (0.0-0.1); Basophils % 0.8 %; Eosinophils # 0.1 10^3/uL (0.0-0.8); Eosinophils % 0.8 %; Hemoglobin 12.5 g/dL (11.5-15.3); Lymphocytes # 0.6 10^3/uL (0.8-4.8); Lymphocytes % 10.4 %; Mean Corpuscular HGB Conc 32.9 g/dL (30.0-36.0); Mean Corpuscular Hemoglobin 35.5 pg (28.0-34.0); Mean Platelet Volume 9.5 fL (7.4-10.4); Monocytes # 0.6 10^3/uL (0.2-0.9); Monocytes % 9.3 %; Neutrophils # 4.8 10^3/uL (1.8-7.7); Neutrophils % 78.4 %; Nucleated Red Blood Cells % 0 %; Platelet Count 70 10^3/cmm (130-400); Red Blood Count 3.52 10^6/uL (4.1-5.3); White Blood Count 6.1 10^3/uL (4.0-10.0)
--- NOTE | 2020-03-19 21:56 | W.ED.FALL ---
HPI - Fall General: Chief Complaint: Fall Stated Complaint: fall Time Seen by Provider: 03/19/20 21:21 History of Present Illness: HPI Narrative: Very nice 85-year-old lady who lives alone. She fell at home today. She states that she was in a standing position, got dizzy . She fell forward landing on the floor. She states the back of her head hurts, so somehow she must have hit her head. She had a mild headache earlier. She has a mild neck ache. She has a previous right shoulder fracture that is hurting more now. She also complains of right-sided rib pain. By their estimation she was in the floor at least 3 hours. complaint: fall Onset (ago): hour(s) Fall from: standing Fall witnessed: no Place fall occurred: home Loss of consciousness: Unsure Prolonged down time: yes and hour(s) (3) Symptoms prior to fall: lightheadedness and dizziness Location of injury: head and chest Location of injury - extremities: Right: shoulder Severity: moderate Associated symptoms-after fall: Reports headache(s), lightheadedness and neck pain; Denies abdominal pain, chest pain, confusion, hematuria or short of breath Review of Systems Const: Denies: fever(s) or chills Eyes: Denies: change in vision or blurry vision ENMT: Denies: swelling of lips/tongue or sinus pain Card: Reports: lightheadedness; Denies: chest pain Resp: Denies: dyspnea, productive cough, non-productive cough or wheezing GI: Denies: abdominal pain : Denies: dysuria or hematuria Musc: Reports: neck pain; Denies: back pain or joint redness Skin/Breast: Denies: rash, pruritus or erythema Neuro: Reports: headache(s); Denies: confusion Psych: Denies: anxiety PFSH ED PFSH: Medical History (Updated 03/20/20 @ 02:07 by Lex Whalen DO) Cirrhosis of liver normal labs and biopsy. Had esophageal varices. Etiology unclear. CVA (cerebral vascular accident) Diabetes Glaucoma Hypertension Hypothyroid Lichen planus Surgical History H/O bilateral cataract extraction H/O: section History of cholecystectomy History of hysterectomy Family History Other Unknown family medical history Social History Smoking and tobacco status: never smoked Alcohol intake: never Marital status: / Physical Exam Const: GENERAL APPEARANCE: well developed ORIENTATION/CONSCIOUSNESS: Yes oriented to person, Yes oriented to place and Yes oriented to time HENMT: COMMON NORMALS: normocephalic, external ears normal and Normal external nose present HEAD & SCALP: normocephalic FACE & SINUS: normal facial exam NOSE: Normal external nose present and No nasal discharge present EXTERNAL EAR: Yes external ears normal Eye: COMMON NORMALS: Equal, round and reactive pupils present, EOMs intact bilaterally and conjunctivae normal EYELID: eyelids normal CONJUNCTIVA: Yes conjunctivae normal PUPIL: Yes Equal, round and reactive pupils present Neck/C-Spine: GENERAL: No tracheal deviation Chest: COMMONS NORMALS: normal inspection of the chest CHEST: No tenderness Resp: COMMON NORMALS: clear to auscultation bilaterally EFFORT & INSPECTION: No tachypneic, No respiratory distress, No retractions, No uses accessory muscles and No tracheal deviation AUSCULTATION: clear to auscultation bilaterally, no rhonchi, no wheezes and lung sounds not diminished Cardio: COMMON NORMALS: regular rate and regular rhythm RATE: regular rate RHYTHM: regular rhythm HEART SOUNDS: no murmurs PERIPHERAL PULSES: radial pulses present GI: INSPECTION: No abdominal distension AUSCULTATION: No Hyperactive bowel sounds present and No Hypoactive bowel sounds present PALPATION: No Guarding due to palpation present (GI) and No Rigid due to palpation PERCUSSION: no dullness to percussion and no tympanic to percussion Extremity: NARRATIVE EXTREMITY EXAM: Right shoulder no deformity. There is tenderness over the glenohumeral joint. No clavicular tenderness. She has tenderness at C7. Neuro: SENSORIUM/ORIENTATION: Yes oriented to person, Yes oriented to place and Yes oriented to time Psych: COMMON NORMALS: mental status grossly normal Skin: COMMON NORMALS: no rashes or lesions noted GENERAL SKIN EXAM: no rashes or lesions noted Course Consultations: Consultation #1: [place] Vital Signs: Vital signs: Vital Signs Temperature 98.1 F 03/19/20 21:08 Pulse Rate 65 03/20/20 01:19 Respiratory Rate 16 03/20/20 01:19 Blood Pressure 119/51 03/20/20 01:19 Pulse Oximetry 93 03/20/20 01:19 MDM - Fall MDM Narrative: Medical decision making narrative: 85-year-old female. She is generally weak. She got dizzy and fell at home. She has a white blood cell count of 6.1. Hemoglobin of 12. Platelet count of 70. She has a significant urinary tract infection on urinalysis. Head and cervical spine CTs are negative. Chest x-ray appeared negative, although she is complaining of some right-sided breast pain. Her shoulder x-ray, shows no displacement in her previous fracture. She attempted to walk in the ER, but was very unsteady. Should be observed for treatment of her urinary tract infection, fluid resuscitation, etc. Spoke with her PCP. Lab Data: Labs: Lab Results 03/19/20 03/19/20 03/19/20 Range/Units 21:45 21:45 21:45 WBC 6.1 (4.0-10.0) 10^3/ uL RBC 3.52 L (4.1-5.3) 10^6/u L Hgb 12.5 (11.5-15.3) g/dL Hct 38.0 (37.0-47.0) % MCV 108.0 H (81-99) fL MCH 35.5 H (28.0-34.0) pg MCHC 32.9 (30.0-36.0) g/dL RDW 14.0 (12.1-15.1) % Plt Count 70 L (130-400) 10^3/c mm MPV 9.5 (7.4-10.4) fL Neut % (Auto) 78.4 % Lymph % (Auto) 10.4 % Payne % (Auto) 9.3 % Eos % (Auto) 0.8 % Baso % (Auto) 0.8 % Neut # (Auto) 4.8 (1.8-7.7) 10^3/u L Lymph # (Auto) 0.6 L (0.8-4.8) 10^3/u L Payne # (Auto) 0.6 (0.2-0.9) 10^3/u L Eos # (Auto) 0.1 (0.0-0.8) 10^3/u L Baso # (Auto) 0.1 (0.0-0.1) 10^3/u L Nucleated RBC % (a uto) 0 % Nucleated RBCs # 0.0 /100WBC PT 15.10 H (10.5-13.3) SECO NDS INR 1.15 (0.8-1.2) APTT 38.0 H (23.9-36.7) SECO NDS Sodium 142 (136-145) mmol/L Potassium 3.4 L (3.5-5.1) mmol/L Chloride 103 (98-107) mmol/L Carbon Dioxide 28 (22-29) mmol/L Anion Gap 14.4 (5-19) BUN 20 (8-23) mg/dL Creatinine 0.9 (0.5-0.9) mg/dL Glucose 192 H (65-115) mg/dL Calculated Osmolal ity 296 H (285-295) mOsm/k g Calcium 9.4 (8.5-10.5) mg/dL Magnesium 1.6 L (1.7-2.3) mg/dL Total Bilirubin 1.0 (0.15-1.2) mg/dL AST 39 H (0-32) U/L ALT 26 (0-33) U/L Alkaline Phosphata se 95 (35-105) IU/L Creatine Kinase 250 H (26-192) U/L Troponin T Baselin e (0-10) ng/L Troponin T 120 Min [place] (0-10) ng/L Delta Troponin T (0-10) ABS# NT-Pro-B Natriuret Pep 413 (0-450) pg/mL Total Protein 6.6 (6.6-8.7) g/dL Albumin 3.8 (3.5-5.2) g/dL Globulin 2.8 (1.3-4.6) g/dL Urine Color (Yellow) Urine Appearance (CLEAR) Urine pH (5-7) Ur Specific Gravit y (1.005-1.030) Urine Protein (Negative) Urine Glucose (UA) (Normal) Urine Ketones (Negative) Urine Blood (Negative) Urine Nitrate (Negative) Urine Bilirubin (NEGATIVE) Urine Urobilinogen (Negative) mg/dL Ur Leukocyte Lisa ase (Negative) Urine RBC (0-2) /hpf Urine WBC (0-5) /hpf Ur Squamous Epith Cells (0-5) Amorphous Sediment Urine Bacteria (NONE) Hyaline Casts 03/19/20 03/19/20 03/19/20 Range/Units 21:45 22:30 23:25 WBC (4.0-10.0) 10^3/ uL RBC (4.1-5.3) 10^6/u L Hgb (11.5-15.3) g/dL Hct (37.0-47.0) % MCV (81-99) fL MCH (28.0-34.0) pg MCHC (30.0-36.0) g/dL RDW (12.1-15.1) % Plt Count (130-400) 10^3/c mm MPV (7.4-10.4) fL Neut % (Auto) % Lymph % (Auto) % Payne % (Auto) % Eos % (Auto) % Baso % (Auto) % Neut # (Auto) (1.8-7.7) 10^3/u L Lymph # (Auto) (0.8-4.8) 10^3/u L Payne # (Auto) (0.2-0.9) 10^3/u L Eos # (Auto) (0.0-0.8) 10^3/u L Baso # (Auto) (0.0-0.1) 10^3/u L Nucleated RBC % (a uto) % Nucleated RBCs # /100WBC PT (10.5-13.3) SECO NDS INR (0.8-1.2) APTT (23.9-36.7) SECO NDS Sodium (136-145) mmol/L Potassium (3.5-5.1) mmol/L Chloride (98-107) mmol/L Carbon Dioxide (22-29) mmol/L Anion Gap (5-19) BUN (8-23) mg/dL Creatinine (0.5-0.9) mg/dL Glucose (65-115) mg/dL Calculated Osmolal ity (285-295) mOsm/k g Calcium (8.5-10.5) mg/dL Magnesium (1.7-2.3) mg/dL Total Bilirubin (0.15-1.2) mg/dL AST (0-32) U/L ALT (0-33) U/L Alkaline Phosphata se (35-105) IU/L Creatine Kinase (26-192) U/L Troponin T Baselin e 17 H (0-10) ng/L Troponin T 120 Min [place] 13.96 H (0-10) ng/L Delta Troponin T -3.04 L (0-10) ABS# NT-Pro-B Natriuret Pep (0-450) pg/mL Total Protein (6.6-8.7) g/dL Albumin (3.5-5.2) g/dL Globulin (1.3-4.6) g/dL Urine Color Yellow (Yellow) Urine Appearance Clear (CLEAR) Urine pH 5 (5-7) Ur Specific Gravit y 1.020 (1.005-1.030) Urine Protein Trace (Negative) Urine Glucose (UA) Norm (Normal) Urine Ketones Negative (Negative) Urine Blood 3+ H (Negative) Urine Nitrate Negative (Negative) Urine Bilirubin Neg (NEGATIVE) Urine Urobilinogen Norm (Negative) mg/dL Ur Leukocyte Lisa ase 2+ H (Negative) Urine RBC 5-10 H (0-2) /hpf Urine WBC 10-15 H (0-5) /hpf Ur Squamous Epith Cells 15-25 H (0-5) Amorphous Sediment Not Reportable Urine Bacteria 1+ H (NONE) Hyaline Casts 0-4 H Discharge Plan Discharge Patient Disposition: Placed in Observation Admit Provider: Alvino Kimble Clinical Impression: Acute UTI, Generalized weakness Syncope Qualifiers: Syncope type: unspecified Qualified Code(s): R55 - Syncope and collapse Condition: Stable Interventions: ED Discharge Assessment Last Done: 03/20/20 01:19 ED Charges Last Done: 03/20/20 01:19 Discharge Date/Time: 03/20/20 01:35 Coding Level of Care Code 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
[2020-03-19 22:05] LABS: INR 1.15 (0.8-1.2)
[2020-03-19] MEDS: sodium chloride 0.9% 500 ML IV (22:15)
[2020-03-19 22:18] VITALS: PULSE 71; RESP 16; O2SAT 95
[2020-03-19 22:23] LABS: Troponin(5th) Baseline 17 ng/L (0-10)
[2020-03-19 22:31] LABS: Alanine Aminotransferase 26 U/L (0-33); Albumin Level 3.8 g/dL (3.5-5.2); Alkaline Phosphatase 95 IU/L (35-105); Anion Gap 14.4 (5-19); Aspartate Amino Transferase 39 U/L (0-32); Blood Urea Nitrogen 20 mg/dL (8-23); Calcium 9.4 mg/dL (8.5-10.5); Carbon Dioxide 28 mmol/L (22-29); Chloride 103 mmol/L (98-107); Creatine Phosphokinase 250 U/L (26-192); Globulin 2.8 g/dL (1.3-4.6); Glucose 192 mg/dL (65-115); Magnesium 1.6 mg/dL (1.7-2.3); NT Pro B Type Natriuretic Pept 413 pg/mL (0-450); Osmolality Calculated 296 mOsm/kg (285-295); Potassium 3.4 mmol/L (3.5-5.1); Sodium 142 mmol/L (136-145); Total Protein 6.6 g/dL (6.6-8.7)
--- NOTE | 2020-03-19 22:37 | PC.NURSE ---
patient up to bedside commode with nurse assist
[2020-03-19 22:54] LABS: Add Urine Microscopic? YES; Bilirubin Urine Neg (NEGATIVE); Blood Urine 3+ (Negative); Glucose Urine UA Norm (Normal); Ketones Urine Negative (Negative); Leukocyte Esterase Urine 2+ (Negative); Nitrate Urine Negative (Negative); Protein Urine Trace (Negative); Urine Appearance Clear (CLEAR); Urine Color Yellow (Yellow); Urobilinogen Urine Norm (Negative); pH Urine 5 (5-7)
[2020-03-19 23:04] LABS: Bacteria Urine 1+; Hyaline Casts Urine 0-4; Squamous Epithelial Cell Urine 15-25 (0-5)
[2020-03-19 23:05] LABS: Add Urine Culture? No
[2020-03-19] MEDS: cefTRIAXone 1,000 MG in sodium chloride 0.9% (plus) 50 ML 100 MG IV (23:12)
[2020-03-19 23:13] VITALS: BP 138/56; PULSE 68; RESP 16; O2SAT 93
[2020-03-19 23:44] LABS: Troponin 5 2HR 13.96 ng/L (0-10)
[2020-03-19 23:46] LABS: Troponin 5 2HR Delta -3.04 ABS# (0-10)
[2020-03-20] VITALS (10 sets, daily range): BP systolic 119–145; BP diastolic 51–80; PULSE 65–73; RESP 15–22; TEMP 36.4–36.9; O2SAT 92–97
[2020-03-20] MEDS: fentaNYL 50 mcg/mL INJ 2mL IVP (01:25)
[2020-03-20] MEDS: sodium chloride 0.9% 1,000 ML 100 ML IV ×2 (02:53→14:24)
[2020-03-20 05:03] LABS: Alanine Aminotransferase 24 U/L (0-33); Albumin Level 3.3 g/dL (3.5-5.2); Alkaline Phosphatase 81 IU/L (35-105); Anion Gap 14.6 (5-19); Aspartate Amino Transferase 43 U/L (0-32); Blood Urea Nitrogen 20 mg/dL (8-23); Calcium 8.8 mg/dL (8.5-10.5); Carbon Dioxide 21 mmol/L (22-29); Chloride 105 mmol/L (98-107); Globulin 2.9 g/dL (1.3-4.6); Glucose 145 mg/dL (65-115); Osmolality Calculated 283 mOsm/kg (285-295); Potassium 3.6 mmol/L (3.5-5.1); Sodium 137 mmol/L (136-145); Total Bilirubin 0.7 mg/dL (0.15-1.2); Total Protein 6.2 g/dL (6.6-8.7)
[2020-03-20 05:22] LABS: Basophils % 0.4 %; Eosinophils # 0.1 10^3/uL (0.0-0.8); Eosinophils % 2.4 %; Hematocrit 36.7 % (37.0-47.0); Hemoglobin 12.3 g/dL (11.5-15.3); Lymphocytes # 0.6 10^3/uL (0.8-4.8); Lymphocytes % 12.6 %; Mean Corpuscular HGB Conc 33.5 g/dL (30.0-36.0); Mean Corpuscular Hemoglobin 35.9 pg (28.0-34.0); Monocytes # 0.6 10^3/uL (0.2-0.9); Monocytes % 11.2 %; Neutrophils # 3.7 10^3/uL (1.8-7.7); Neutrophils % 73.2 %; Nucleated Red Blood Cells % 0 %; Platelet Count 62 10^3/cmm (130-400); Red Blood Count 3.43 10^6/uL (4.1-5.3); Red Cell Distribution Width 14.2 % (12.1-15.1); White Blood Count 5.1 10^3/uL (4.0-10.0)
--- NOTE | 2020-03-20 06:41 | P.HP_ITS ---
Providers/Chief Complaint Admitting Physician: Alvino Kimble MD Primary Care Provider: Alvino Kimble MD Chief Complaint: fall History of Present Illness Renee Dhaliwal is a 85 year old female who apparently fell at home yesterday and laid there for about 3 hours before being found. She was unable to get up and was brought to the emergency room. She is not sure if she passed out or if she tripped and fell. She is a rather poor historian but this is typical for her. Her mental state seems to be at her baseline today. She denies any fevers or chills. No cough. No chest pain or shortness of breath. She has been very weak and has been struggling due to the right comminuted humerus fracture that she received last month. She is in a brace for this. In the emergency room last night she was felt to have a UTI. She was admitted for observation for antibiotics and some IV fluids. She has not try to get up yet. Review of Systems Narrative: General: No chronic fevers or chronic weight changes. HEENT: No acute changes in vision. No acute hearing loss. No new difficulty swallowing. Heart: No new chest pain or recent issues with coronary disease. Lungs: No history of TB. No chronic lung disease. GI: No history of GI bleeding. No hepatitis. No chronic nausea or vomitting. Renal: No dysuria or frequency. No hematuria Neuro: No acute neurological changes or deficits. Musculoskeletal: No acutely worsening joint pain or swelling. Medications/Allergies Home Medications Medication Instructions Recorded Confirmed Last Taken Type Novolog Mix 70-30FlexPen U-100 See Rx Instructions .ROUTE .COMPLEX 09/14/19 02/27/20 Unknown History albuterol sulfate [Ventolin HFA] 2 puff INHALATION Q4H PRN 09/14/19 02/27/20 Unknown History alprazolam 0.5 mg PO BID PRN 09/14/19 02/27/20 Unknown History aspirin [Aspirin Low Dose] 81 mg PO DAILY 09/14/19 02/27/20 Unknown History docusate sodium [Colace] 100 mg PO DAILY 09/14/19 02/27/20 09/13/19 History levothyroxine 100 mcg PO DAILY 09/14/19 02/27/20 09/13/19 History meclizine 25 mg PO QID PRN 09/14/19 02/27/20 09/13/19 History 25 MG propranolol 60 mg PO DAILY 09/14/19 02/27/20 09/13/19 History spironolactone 100 mg PO DAILY 09/14/19 02/27/20 09/13/19 History ipratropium-albuterol 3 ml INHALATION Q4H.RESPIRATORY 09/20/19 02/27/20 Unknown Rx PRN #100 ml mirtazapine 7.5 mg PO BEDTIME #30 tab 09/20/19 02/27/20 Unknown Rx prednisone 20 mg PO DAILY #20 tab 09/20/19 02/27/20 Unknown Rx hydrocodone-acetaminophen 1 tab PO Q4H PRN #20 tab 01/28/20 02/27/20 Unknown Rx Shoulder immobilizer #1 each 02/01/20 02/27/20 Unknown Rx sertraline 50 mg tablet 50 mg PO DAILY 02/27/20 02/27/20 Unknown History Allergies Allergy/AdvReac Type Severity Reaction Status Date / Time codeine Allergy Unknown Verified 02/27/20 10:15 morphine Allergy Unknown Verified 02/27/20 10:15 Sulfa (Sulfonamide Allergy Unknown Verified 02/27/20 10:15 Antibiotics) PFSH Acute PFSH: Medical History (Updated 03/20/20 @ 06:46 by Alvino Kimble MD) Cirrhosis of liver normal labs and biopsy. Had esophageal varices. Etiology unclear. CVA (cerebral vascular accident) Diabetes Glaucoma Hypertension Hypothyroid Lichen planus Thrombocytopenia Surgical History H/O bilateral cataract extraction H/O: section History of cholecystectomy History of hysterectomy Family History Other Unknown family medical history Social History Smoking and tobacco status: never smoked Alcohol intake: never Marital status: / Vitals/I&O/Wt Last Vital Signs Temp 98.4 F 03/20/20 04:00 Pulse 65 03/20/20 04:00 Resp 20 H 03/20/20 04:00 BP 126/74 03/20/20 04:00 Pulse Ox 97 03/20/20 04:00 03/19/20 03/19/20 03/20/20 14:59 22:59 06:59 Intake Total 1000 / 1000 Balance 1000 / 1000 Weight last 48 hrs Weight 178 lb Physical Exam Narrative: EXAM NARRATIVE: General: No acute distress, Alert. Well nourished. HEENT: PERRLA, EOMI. vision grossly normal. Throat clear. Neck: supple, no adenopathy. Heart: Regular rate and rhythm. No murmurs, rubs or gallops. Normal capillary refill. Lungs: Clear to auscultation. No wheezes, rhonchi or rales. Abdomen: Positive bowel sounds. Non-tender, non-distended. No hepatosplenomegaly. No gaurding. Extremities: No clubbing, cyanosis, or edema. Negative Greyson's. Data : 03/20/20 03:15 03/20/20 03:15 A&P Assessment and plan (1) Acute UTI: At this point suspect this is probably the cause of her fall. We will continue to treat with Rocephin. Monitor for symptoms closely. Status: Acute (2) Syncope: Status: Acute Qualifiers: Syncope type: unspecified Qualified Code(s): R55 - Syncope and collapse (3) Generalized weakness: Physical therapy to assess and treat. Possible discharge later today if not tomorrow. Status: Acute (4) Fracture of greater tuberosity of humerus: Status: Acute Qualifiers: Encounter type: initial encounter Fracture type: closed Fracture alignment: displaced Laterality: right Qualified Code(s): S42.251A - Displaced fracture of greater tuberosity of right humerus, initial encounter for closed fracture (5) Diabetes: Has been well controlled at home. We will continue to monitor blood sugar s and restart her insulin. Status: Acute (6) Thrombocytopenia: Chronic in nature. We will continue to monitor. We will hold off on any anticoagulations due to her low platelets. Status: Acute Attestations Medical Necessity Statement*: Patient is in his observation now. We will have physical therapy working with her in hopes we can discharge her timely. Coding Level of Care Code Acute Case Making Machine Operator for Jani Kumar Diagnoses Acute UTI N39.0 Syncope R55 Syncope type: unspecified Generalized weakness R53.1 Fracture of greater tuberosity of humerus S42.251A Encounter type: initial encounter Fracture type: closed Fracture alignment: displaced Laterality: right Diabetes E11.9 Thrombocytopenia D69.6
[2020-03-20 08:41] LABS: Glucose Point of Care 158 mg/dL (70-110)
[2020-03-20] MEDS: cefTRIAXone 2,000 MG in sodium chloride 0.9% (plus) 50 ML 100 MG IV (08:50)
--- NOTE | 2020-03-20 11:32 | PC.CHAP ---
Pastoral Care Encounter/Spiritual Assessment Type of Contact [] Declined vacuum tester cans visit [] Patient/Family/Request visit [] Outpatient visit [] Follow-up visit [] Physician referral [] Code/Alert [x] Routine visit [] Staff referral [] Actively dying [] Patient sleeping [] Family support [] [] Out of room [] Palliative care [] [x] Receiving care in room [] Pre-surgical visit [] Trauma [] Long length of stay [] ICU visit [] Other: Relational/Emotional Strength [x] Patient feels connected with others/family/visitors/staff [] Distress [] Loneliness/isolation [] Abandonment Spirituality of Patient [x] Person of Angelica [] Attends Orthodoxy of their Angelica [x] Believes in Prayer [] Reads Bible or Rastafarian materials [] There are Spiritual issues to be addressed Account Development Associate Interventions [x] Prayer [x] Active listening [x] Non-anxious presence [x] Spiritual/emotional support [] Crisis/trauma care [x] Spiritual counseling [] Bereavement support [] Provided bereavement packet [] Provided Bible/devotional materials [] Provided toy/stuffed animal, coloring book to patient or family member [] Provided Communion [] Anointing/[place] [] Salvation [x] Completed spiritual assessment [] Other: Impact on Illness or Injury [] Angry [] Fearful [] Anxious [] Often cries [] Exhaustion [] Unable to work [] Unable to attend christianity [] Unable to walk/stand [] Unable to read [] Unable to drive [] Unable to eat/drink [] Unable to sleep [] Unable to be with family [] Patient intubated [] Other: Summary Yared bedolla, set it it will take some recovery time, has a good attitude, does know when she can go home Time spent with patient 10 mins
[2020-03-20 12:06] LABS: Glucose Point of Care 209 mg/dL (70-110)
[2020-03-20 16:49] LABS: Glucose Point of Care 271 mg/dL (70-110)
[2020-03-20] MEDS: HYDROcodone-acetaminophen 5-325 mg Tablet 1 TAB PO (19:49)
[2020-03-20 21:53] LABS: Glucose Point of Care 216 mg/dL (70-110)
[2020-03-20] MEDS: mirtazapine 15 mg Tablet 7.5 MG PO (21:53)
[2020-03-21] VITALS (8 sets, daily range): BP systolic 115–138; BP diastolic 61–68; PULSE 60–88; RESP 16–20; TEMP 36.5–36.9; O2SAT 81–96
[2020-03-21] MEDS: HYDROcodone-acetaminophen 5-325 mg Tablet 1 TAB PO ×2 (04:48→11:38)
[2020-03-21] MEDS: sodium chloride 0.9% 1,000 ML 100 ML IV ×2 (04:48→11:35)
[2020-03-21 05:25] LABS: Basophils % 0.7 %; Eosinophils # 0.2 10^3/uL (0.0-0.8); Eosinophils % 5.1 %; Hematocrit 38.1 % (37.0-47.0); Hemoglobin 12.1 g/dL (11.5-15.3); Lymphocytes # 0.7 10^3/uL (0.8-4.8); Lymphocytes % 17.1 %; Mean Corpuscular HGB Conc 31.8 g/dL (30.0-36.0); Mean Corpuscular Hemoglobin 35.1 pg (28.0-34.0); Mean Corpuscular Volume 110.4 fL (81-99); Mean Platelet Volume 9.5 fL (7.4-10.4); Monocytes # 0.4 10^3/uL (0.2-0.9); Monocytes % 10.2 %; Neutrophils # 2.9 10^3/uL (1.8-7.7); Neutrophils % 66.7 %; Nucleated Red Blood Cells % 0 %; Platelet Count 56 10^3/cmm (130-400); Red Blood Count 3.45 10^6/uL (4.1-5.3); White Blood Count 4.3 10^3/uL (4.0-10.0)
[2020-03-21 05:55] LABS: Anion Gap 10.8 (5-19); Blood Urea Nitrogen 17 mg/dL (8-23); Carbon Dioxide 27 mmol/L (22-29); Chloride 108 mmol/L (98-107); Glucose 175 mg/dL (65-115); Osmolality Calculated 295 mOsm/kg (285-295); Potassium 3.8 mmol/L (3.5-5.1); Sodium 142 mmol/L (136-145)
[2020-03-21 06:59] LABS: Glucose Point of Care 166 mg/dL (70-110)
[2020-03-21] MEDS: propranolol 40 mg Tablet 60 MG PO (08:12)
[2020-03-21] MEDS: levothyroxine 100 mcg Tablet PO (08:13)
[2020-03-21] MEDS: aspirin 81 mg EC Tablet PO (08:13)
[2020-03-21] MEDS: cefTRIAXone 2,000 MG in sodium chloride 0.9% (plus) 50 ML 100 MG IV (08:13)
[2020-03-21] MEDS: docusate sodium 100 mg Capsule PO (08:13)
--- NOTE | 2020-03-21 09:46 | PC.CHAP ---
Pastoral Care Encounter/Spiritual Assessment Type of Contact [] Declined family services manager visit [] Patient/Family/Request visit [] Outpatient visit [] Follow-up visit [] Physician referral [] Code/Alert [x] Routine visit [] Staff referral [] Actively dying [] Patient sleeping [] Family support [] [] Out of room [] Palliative care [] [] Receiving care in room [] Pre-surgical visit [] Trauma [] Long length of stay [] ICU visit [] Other: Relational/Emotional Strength [] Patient feels connected with others/family/visitors/staff [] Distress [] Loneliness/isolation [] Abandonment Spirituality of Patient [] Person of Angelica [] Attends Mu-Ism of their Angelica [] Believes in Prayer [] Reads Bible or Methodist materials [] There are Spiritual issues to be addressed [employer] Former Interventions [x] Prayer [x] Active listening [x] Non-anxious presence [x] Spiritual/emotional support [] Crisis/trauma care [] Spiritual counseling [] Bereavement support [] Provided bereavement packet [] Provided Bible/devotional materials [] Provided toy/stuffed animal, coloring book to patient or family member [] Provided Communion [] Anointing/[place] [] Salvation [x] Completed spiritual assessment [] Other: Impact on Illness or Injury [] Angry [] Fearful [] Anxious [] Often cries [] Exhaustion [] Unable to work [] Unable to attend taoist [] Unable to walk/stand [] Unable to read [] Unable to drive [] Unable to eat/drink [] Unable to sleep [] Unable to be with family [] Patient intubated [] Other: Summary Patient setting up in chair- feeling somewhat better, has stiff neck. Time spent with patient 10 min
[2020-03-21 11:28] LABS: Glucose Point of Care 215 mg/dL (70-110)
--- NOTE | 2020-03-22 14:16 | P.DS_ITS ---
Discharge Providers Date of Admission: 03/20/20 00:17 Date of Discharge: March 21, 2020 Attending Provider at Admission: Alvino Kimble MD Attending Provider at Discharge: Alvino Kimble MD Primary Care Provider: Alvino Kimble MD Diagnoses at Discharge Discharge Diagnosis (1) Acute UTI: Status: Resolved (2) Syncope: Status: Resolved Qualifiers: Syncope type: unspecified Qualified Code(s): R55 - Syncope and collapse (3) Generalized weakness: Status: Resolved (4) Fracture of greater tuberosity of humerus: Status: Acute Problem details: This happened on 02/27/2020. Does not appear to be any acute change to that. Qualifiers: Encounter type: initial encounter Fracture type: closed Fracture alignment: displaced Laterality: right Qualified Code(s): S42.251A - Displaced fracture of greater tuberosity of right humerus, initial encounter for closed fracture (5) Diabetes: Status: Acute (6) Thrombocytopenia: Status: Acute (7) COPD (chronic obstructive pulmonary disease): Status: Acute Problem details: Patient is having some mild shortness of breath when she came in. She had a home O2 eval requiring 2 L of oxygen per nasal cannula. She had required oxygen during her last hospitalization rehab stay. Reason for Visit Reason for Visit: fall Hospital Course Discharge Summary: Patient is admitted to the hospital after having a fall at home. She was found to have a UTI he was little confused. She received IV Rocephin 3 doses and IV fluids. She is doing much better at the time of discharge. She was still very weak and would have benefited from rehab but did not qualified. She is going to stay with her family. She also has some COPD and required oxygen. She had a home O2 evaluation showing she required 2 L. Patient is discharged in good condition. Discharge Data Data Completed and Pending: Completed Studies During Hospitalization Category Date Time Status CT cervical spin wo con* [id number] Urge nt Cat Scan 03/19/20 21:[address] head wo con* [id number] Urgent Cat Scan 03/19/20 21:31 Completed XR chest 1V ramiro ble [id number] Urgent Exams 03/19/20 21:31 Completed XR shoulder RT mi n 2V* [id number] Stat Exams 03/19/20 21:31 Completed Vitals: Last Vital Signs Temp 97.7 F 03/21/20 15:52 Pulse 60 03/21/20 15:52 Resp 20 H 03/21/20 15:52 BP 130/62 03/21/20 15:52 Pulse Ox 96 03/21/20 15:52 Discharge Plan Discharge Patient Disposition: Home, Self-Care Condition: Stable Prescriptions: Continued (DME) Shoulder immobilizer See Rx Instructions .ROUTE .MEDSUPPLY Qty: 1 RF: 0 sertraline [Zoloft] 50 mg tablet 50 mg PO DAILY RF: 0 levothyroxine 100 mcg Tablet 100 mcg PO DAILY RF: 0 spironolactone 100 mg Tablet 100 mg PO DAILY RF: 0 propranolol 60 mg Tablet 60 mg PO DAILY RF: 0 aspirin [Aspirin Low Dose] 81 mg Tablet,Delayed Release (Dr/Ec) 81 mg PO DAILY RF: 0 alprazolam 0.5 mg Tablet 0.5 mg PO BID PRN (Reason: Anxiety) RF: 0 meclizine 25 mg Tablet 25 mg PO QID PRN (Reason: dizziness) RF: 0 albuterol sulfate [Ventolin HFA] 90 mcg/actuation Hfa Aerosol Inhaler 2 puff INHALATION Q4H PRN (Reason: Shortness Of Breath) RF: 0 insulin asp prt-insulin aspart [Novolog Mix 70-30FlexPen U-100] 100 unit/mL (70-30) Insulin Pen See Rx Instructions .ROUTE .COMPLEX RF: 0 docusate sodium [Colace] 100 mg Capsule 100 mg PO DAILY RF: 0 ipratropium-albuterol 0.5 mg-3 mg(2.5 mg base)/3 mL Solution For Nebulization 3 ml inhalation Q4H.RESPIRATORY PRN (Reason: Shortness Of Breath) Qty: 100 RF: 0 prednisone 20 mg Tablet 20 mg PO DAILY Qty: 20 RF: 0 mirtazapine 15 mg Tablet 7.5 mg PO BEDTIME Qty: 30 RF: 0 hydrocodone-acetaminophen 5-325 mg tablet 1 tab PO Q4H PRN (Reason: pain) Qty: 20 RF: 0 hydrocodone-acetaminophen 5-325 mg tablet 1 tab PO Q4H PRN (Reason: pain) RF: 0 Discharge Orders: Discharge Order (Routine); Ordered 03/21/20 Ordered By: Alvino Kimble Other Ambulatory Orders: DME: Oxygen (Order) Location: None Selected Ordered By: Alvino Kimble Referrals: Alvino Kimble MD [Primary Care Provider] - 03/27/20 9:40 am Discharge Diet: Diabetic Discharge Activity: Resume usual activity Patient Instructions: Urinary Tract Infection in Women (GEN), Fall Prevention (GEN) Activity Restrictions/Additional Instructions: -Resume all of your home medications the same -Call if increasing weakness, chest pain, shortness of breath -Follow-up with Dr. Kimble in 1 week Discharge Date/Time: 03/21/20 16:35 Discharge Attestations Time Spent in Discharge Care*: less than 30 min Quality Metrics Clinical Quality Measures During this hospital stay, did patient experience: None Coding Level of Care Code Acute Greenhouse Specialist for Chg Fwd Diagnoses Acute UTI N39.0 Syncope R55 Syncope type: unspecified Generalized weakness R53.1 Fracture of greater tuberosity of humerus S42.251A Encounter type: initial encounter Fracture type: closed Fracture alignment: displaced Laterality: right Diabetes E11.9 Thrombocytopenia D69.6 COPD (chronic obstructive pulmonary disease) J44.9
== END 2020-03-21 16:35 | disposition home or self-care (01) ==
LOC: ER 21:32 → MEDSURG 03-20 00:21
PROVIDERS: Emergency Medicine; Admitting Provider Family Medicine; PCP Family Medicine; Visit Provider Family Medicine
DX: N39.0 Urinary tract infection, site not specified (principal); R55 Syncope and collapse; R53.1 Weakness; S42.251A Displaced fracture of greater tuberosity of right humerus, initial encounter for closed fracture; W19.XXXA Unspecified fall, initial encounter; E11.9 Type 2 diabetes mellitus without complications; Z79.4 Long term (current) use of insulin; D69.6 Thrombocytopenia, unspecified; J44.9 Chronic obstructive pulmonary disease, unspecified; Z79.82 Long term (current) use of aspirin; Z79.891 Long term (current) use of opiate analgesic; Z86.73 Personal history of transient ischemic attack (TIA), and cerebral infarction without residual deficits; I10 Essential (primary) hypertension
CPT/HCPCS: 12345; 36415; 36416; 70450; 71045; 72125; 73030; 80048; 80053; 81001; 81003; 82550; 82962; 83735; 83880; 84484; 85025; 85610; 85730; 93005; 96361; 96365; 96372; 96375; 97116; 97161; 97530; 99283; 99285; G0378; J0696; J1815; J3010; J7030; J7040

== ENCOUNTER 2020-03-30 11:28 | Outpatient (CLI) | payer MEDICARE, OTHER, SELFPAY ==
--- NOTE | 2020-03-30 11:37 | XR_ITS ---
WS: [id number] Right rib detail, 2 views, 03/30/2020 Clinical Data: RIGHT RIB PAIN Comparison: Portable chest, 03/19/2020. Findings: There is deformity of a right lateral rib probably the right eighth rib. This could represent a nondi splaced fracture. No pneumothorax or subcutaneous emphysema is seen. There is a fracture of the neck of the right humerus unchanged. XR/XR ribs RT 2V* [id number] Impression: Possible right lateral rib fracture, possibly the right eighth rib.
== END 2020-03-30 11:29 | disposition home or self-care (01) ==
LOC: RADWPI 11:32
PROVIDERS: Family Provider Family Medicine; PCP Family Medicine; Visit Provider Family Medicine
DX: R07.81 Pleurodynia
CPT/HCPCS: 71100

== ENCOUNTER → 2020-04-05 14:02 | Outpatient (BNVA) | payer MEDICARE, OTHER, SELFPAY | PROVIDERS: Family Provider Family Medicine; PCP Family Medicine; Visit Provider Specialist | DX: S42.251A Displaced fracture of greater tuberosity of right humerus, initial encounter for closed fracture (principal); X58.XXXA Exposure to other specified factors, initial encounter | CPT/HCPCS: 73030 ==

== ENCOUNTER 2020-07-19 19:14 | Emergency (ER) | payer MEDICARE, OTHER, SELFPAY ==
[2020-07-19 19:33] VITALS: BP 132/80; PULSE 60; RESP 16; TEMP 36.9; O2SAT 96; BMI 34.2
[2020-07-19 20:09] LABS: Glucose Point of Care 273 mg/dL (70-110)
--- NOTE | 2020-07-19 21:01 | ED_ITS ---
HPI - General Adult General: Chief complaint: General Medical Stated complaint: high blood sugar Time Seen by Provider: 07/19/20 20:41 History of Present Illness: HPI narrative: Patient is an 85-year-old female comes to the ED with multiple complaints. Patient has PMH of COPD, diabetes and HF. Patient's blood sugar at home just prior to arrival was 406. She then took her dose of insulin and came here to the ED. Patient's daughter is with her as well. Daughter says ever since patient had fallen injured right shoulder back on January 27 of this year her mental status has slowly been deteriorating. Daughter notices more episodes of confusion or forgetfulness over the past couple months. Patient also had a fall a week ago and it was unwitnessed but patient says she did hit right side of her head but did not lose consciousness. She did not get evaluated medically after fall a week ago. Patient also complaining of having more dizziness when she gets up and is ambulating. Patient currently uses a walker to help ambulate. Daughter also notices that patient's abdomen use larger and states that over the past 10 days she is put on about 5 pounds of weight. Currently in the process of trying to get patient into assisted care facility. Associated symptoms: Reports confusion (episodic-Progressing for the last 6 months.); Deny chest pain, dyspnea, headache(s), nausea, rash, palpitations or vomiting Review of Systems Const: Denies: fever(s), chills or fatigue Eyes: Denies: change in vision or eye discomfort ENMT: Denies: throat pain, odynophagia, nasal discharge or nasal congestion Card: Denies: chest pain, palpitations, edema, swelling of feet/ankles, dyspnea on exertion or orthopnea Resp: Denies: dyspnea, productive cough or non-productive cough GI: Denies: abdominal pain, nausea, vomiting, diarrhea, constipation or hematochezia : Denies: flank pain, dysuria or hematuria Musc: Denies: neck pain, back pain or extremity swelling Skin/Breast: Denies: rash or new lesions Neuro: Reports: dizziness and confusion (episodic-Progressing for the last 6 months.); Denies: headache(s), numbness in extremities or weakness in extremities PFS ED PFSH: Medical History Cirrhosis of liver normal labs and biopsy. Had esophageal varices. Etiology unclear. COPD (chronic obstructive pulmonary disease) Patient is having some mild shortness of breath when she came in. She had a home O2 eval requiring 2 L of oxygen per nasal cannula. She had required oxygen during her last hospitalization rehab stay. CVA (cerebral vascular accident) Diabetes Glaucoma Hypertension Hypothyroid Lichen planus Thrombocytopenia Surgical History H/O bilateral cataract extraction H/O: section History of carpal tunnel surgery History of cholecystectomy History of hysterectomy Family History Other Unknown family medical history Social History Smoking and tobacco status: never smoked Alcohol intake: never Marital status: / Physical Exam Narrative: EXAM NARRATIVE: Patient is a very friendly and pleasant 85-year-old female in no acute distress sitting comfortably on exam bed when evaluated. Const: COMMON NORMALS: patient oriented x3 and alert HENMT: COMMON NORMALS: normocephalic HEAD & SCALP: normocephalic MOUTH: Normal oral and palatal mucosa present THROAT: posterior oropharynx normal and uvula midline Eye: COMMON NORMALS: Equal, round and reactive pupils present PUPIL: Yes Equal, round and reactive pupils present Neck/C-Spine: COMMON NORMALS: supple GENERAL: Yes normal visual inspection Resp: COMMON NORMALS: normal respiratory effort, No retractions, No use of accessory muscles and clear to auscultation bilaterally AUSCULTATION: clear to auscultation bilaterally Cardio: COMMON NORMALS: regular rate, regular rhythm, S1 normal heart sound present, S2 normal heart sound present, No gallops present (Cardio), No clicks present (Cardio), No murmurs present (Cardio) and Peripheral pulses 2+ throughout RATE: regular rate RHYTHM: regular rhythm HEART SOUNDS: S1 normal heart sound present and S2 normal heart sound present PERIPHERAL PULSES: Peripheral pulses 2+ throughout GI: COMMON NORMALS: Normal to inspection, nondistended, normoactive bowel sounds present, Soft to palpation, non-tender and no masses PALPATION: Yes Soft to palpation : COMMON NORMALS: Yes no CVA tenderness BLADDER/KIDNEY EXAM: Yes no CVA tenderness Back/Pelvis: COMMON NORMALS: no CVA tenderness Extremity: COMMON NORMALS: normal to inspection and no pedal edema Neuro: COMMON NORMALS: patient oriented x3 and moves all extremities SENSORIUM/ORIENTATION: Yes alert Skin: COMMON NORMALS: no rashes or lesions noted GENERAL SKIN EXAM: no rashes or lesions noted and dry skin Course Reevaluation(s): Reevaluation #1: I went and saw patient to tell her about lab and imaging results. Patient is feeling good and not having any chest pain or shortness of breath. I told her that first troponin was low. I offered them to wait around for second troponin lab to be drawn and resulted. Patient and alec romero's daughter both decided against getting second troponin since the first 1 was low and she is not having any chest pain, shortness of breath and other labs were normal. Time: 23:55 Vital Signs: Vital signs: Vital Signs Temperature 98.1 F 07/20/20 00:35 Pulse Rate 82 07/20/20 00:35 Respiratory Rate 16 07/20/20 00:35 Blood Pressure 112/81 07/20/20 00:35 Pulse Oximetry 97 07/20/20 00:35 MDM - General Adult MDM Narrative: Medical decision making narrative: Patient is a 85-year-old female comes to the ED with complaints of hyperglycemia, dizziness and recent fall. Patient took a dose of insulin before coming to the ED. No chest pain or shortness of breath. Patient is alert and oriented and appears to be doing well. She has no acute pain or complaints. Physical exam is normal and lungs are clear to auscultation bilaterally. Vitals are stable. CBC and CMP were unremarkable. Blood glucose 273 initially. first troponin drawn was 12 but patient complaining of no chest pain or shortness of breath. EKG showed sinus bradycardia, [address] segment elevation or depression seen. BNP 252. Chest x-ray showed no acute findings. CT of head showed no acute findings. Patient diagnosed with hyperglycemia and fall. Return to ED precautions given. Follow- up with PCP in a week. Patient understood and agree with plan. Lab Data: Attestation: I reviewed the patient's lab results. Labs: Lab Results 07/19/20 07/19/20 07/19/20 Range/Units 19:54 22:07 22:07 WBC 4.8 (4.0-10.0) 10^3/ uL RBC 3.62 L (4.1-5.3) 10^6/u L Hgb 12.9 (11.5-15.3) g/dL Hct 39.9 (37.0-47.0) % MCV 110.2 H (81-99) fL MCH 35.6 H (28.0-34.0) pg MCHC 32.3 (30.0-36.0) g/dL RDW 13.4 (12.1-15.1) % Plt Count 70 L (130-400) 10^3/c mm MPV 9.9 (7.4-10.4) fL Neut % (Auto) 61.7 % Lymph % (Auto) 19.9 % Sioux % (Auto) 12.2 % Eos % (Auto) 4.8 % Baso % (Auto) 1.0 % Neut # (Auto) 2.97 (1.8-7.7) 10^3/u L Lymph # (Auto) 1.0 (0.8-4.8) 10^3/u L Sioux # (Auto) 0.6 (0.2-0.9) 10^3/u L Eos # (Auto) 0.2 (0.0-0.8) 10^3/u L Baso # (Auto) 0.1 (0.0-0.1) 10^3/u L Nucleated RBC % (a uto) 0 % Nucleated RBCs # 0.0 /100WBC Sodium 144 (136-145) mmol/L Potassium 3.9 (3.5-5.1) mmol/L Chloride 104 (98-107) mmol/L Carbon Dioxide 33 H (22-29) mmol/L Anion Gap 10.9 (5-19) BUN 24 H (8-23) mg/dL Creatinine 1.1 H (0.5-0.9) mg/dL GFR Calculation Not Reportable Glucose 128 H (65-115) mg/dL POC Glucose 273 (70-110) mg/dL Calculated Osmolal ity 304 H (285-295) mOsm/k g Calcium 9.2 (8.5-10.5) mg/dL Total Bilirubin 0.8 (0.15-1.2) mg/dL AST 45 H (0-32) U/L ALT 32 (0-33) U/L Alkaline Phosphata se 112 H (35-105) IU/L Troponin T Baselin e (0-10) ng/L NT-Pro-B Natriuret Pep 252 (0-450) pg/mL Total Protein 6.3 L (6.6-8.7) g/dL Albumin 3.9 (3.5-5.2) g/dL Globulin 2.4 (1.3-4.6) g/dL 07/19/20 Range/Units 22:07 WBC (4.0-10.0) 10^3/ uL RBC (4.1-5.3) 10^6/u L Hgb (11.5-15.3) g/dL Hct (37.0-47.0) % MCV (81-99) fL MCH (28.0-34.0) pg MCHC (30.0-36.0) g/dL RDW (12.1-15.1) % Plt Count (130-400) 10^3/c mm MPV (7.4-10.4) fL Neut % (Auto) % Lymph % (Auto) % [place]oux % (Auto) % Eos % (Auto) % Baso % (Auto) % Neut # (Auto) (1.8-7.7) 10^3/u L Lymph # (Auto) (0.8-4.8) 10^3/u L [place]oux # (Auto) (0.2-0.9) 10^3/u L Eos # (Auto) (0.0-0.8) 10^3/u L Baso # (Auto) (0.0-0.1) 10^3/u L Nucleated RBC % (a uto) % Nucleated RBCs # /100WBC Sodium (136-145) mmol/L Potassium (3.5-5.1) mmol/L Chloride (98-107) mmol/L Carbon Dioxide (22-29) mmol/L Anion Gap (5-19) BUN (8-23) mg/dL Creatinine (0.5-0.9) mg/dL GFR Calculation Glucose (65-115) mg/dL POC Glucose (70-110) mg/dL Calculated Osmolal ity (285-295) mOsm/k g Calcium (8.5-10.5) mg/dL Total Bilirubin (0.15-1.2) mg/dL AST (0-32) U/L ALT (0-33) U/L Alkaline Phosphata se (35-105) IU/L Troponin T Baselin e 12 H (0-10) ng/L NT-Pro-B Natriuret Pep (0-450) pg/mL Total Protein (6.6-8.7) g/dL Albumin (3.5-5.2) g/dL Globulin (1.3-4.6) g/dL Imaging Data^: CT Head: Attestation: I personally reviewed and interpreted this imaging study as follows: Radiologist's impression: [address] [address] [address] Scan Report Signed Patient: Renee Dhaliwal Unit #: [id number] : 1935 Age/Sex: 85 / F ADM Date: 07/19/20 Loc: ER Room/Bed: Attending Dr: Ordering Provider/Ordering MD: Jackson Stuart Date of Service: 07/19/20 Procedure(s): CT head wo con* [id number] Accession Number(s): [id number] Report Number: [id number] PROCEDURE INFORMATION: Exam: CT Head Without Contrast Exam date and time: 07/19/2020 9:09 PM Age: 85 years old Clinical indication: Dizziness and other: High bs; Additional info: Fall one week ago TECHNIQUE: Imaging protocol: Computed tomography of the head without contrast. Radiation optimization: All CT scans at this facility use at least one of these dose optimization techniques: automated exposure control; mA and/or kV adjustment per patient size (includes targeted exams where dose is matched to clinical indication); or iterative reconstruction. COMPARISON: CT head wo con* [id number] 03/19/2020 9:52 PM RADIATION DOSE METRICS: Total DLP (mGy-cm): 737.61 FINDINGS: Brain: There is volume loss and periventricular low density compatible with chronic small vessel disease changes. There is no acute hemorrhage, edema or mass effect. Cerebral ventricles: No ventriculomegaly. Bones/joints: Unremarkable. No acute fracture. Paranasal sinuses: Visualized sinuses are unremarkable. No fluid levels. Mastoid air cells: Visualized mastoid air cells are well aerated. Soft tissues: Unremarkable. CT/CT head wo con* [id number] IMPRESSION: No acute intracranial abnormality. Radiation Dose CTDIVOL = (mGy): DLP = 737.61 (mGy-cm) Dictated By: Prabha Fulton Signed By: Prabha Fulton Signed Date/Time: 07/19/202153 DD/ 51 CXR: Attestation: I personally reviewed and interpreted this imaging study as follows: My impression: Chest x-ray showed no acute findings. EKG Data^: EKG 1: Attestation: I personally reviewed and interpreted this EKG as follows: EKG interpretation date: 07/19/20 Interpretation: Sinus bradycardia with occasional supraventricular premature complexes. 58 bpm, no ST segment elevation or depression seen. Computer generated interpretation: Head CT 07/19/20 21:02 IMPRESSION: No acute intracranial abnormality. Radiation Dose CTDIVOL = (mGy): DLP = 737.61 (mGy-cm) Chest X-Ray 07/19/20 21:04 IMPRESSION: No acute chest abnormality. EKG 2: Attestation: I personally reviewed and interpreted this EKG as follows: EKG interpretation date: 07/19/20 EKG interpretation time: 23:27 Interpretation: Sinus bradycardia, sinus arrhythmia. [address] segment elevation or depression seen. Computer generated interpretation: Head CT 07/19/20 21:02 IMPRESSION: No acute intracranial abnormality. Radiation Dose CTDIVOL = (mGy): DLP = 737.61 (mGy-cm) Chest X-Ray 07/19/20 21:04 IMPRESSION: No acute chest abnormality. Discharge Plan Discharge Patient Disposition: Home Clinical Impression: Hyperglycemia Fall as cause of accidental injury at home as place of occurrence Qualifiers: Encounter type: initial encounter Qualified Code(s): W19.XXXA - Unspecified fall, initial encounter Condition: Stable Prescriptions: No Action (DME) Shoulder immobilizer See Rx Instructions .ROUTE .MEDSUPPLY Qty: 1 RF: 0 levothyroxine 100 mcg Tablet 100 mcg PO DAILY RF: 0 spironolactone 100 mg Tablet 100 mg PO DAILY RF: 0 propranolol 60 mg Tablet 60 mg PO DAILY RF: 0 aspirin [Aspirin Low Dose] 81 mg Tablet,Delayed Release (Dr/Ec) 81 mg PO DAILY RF: 0 albuterol sulfate [Ventolin HFA] 90 mcg/actuation Hfa Aerosol Inhaler 2 puff INHALATION Q4H PRN (Reason: Shortness Of Breath) RF: 0 insulin asp prt-insulin aspart [Novolog Mix 70-30FlexPen U-100] 100 unit/mL (70-30) Insulin Pen See Rx Instructions .ROUTE .COMPLEX RF: 0 ipratropium-albuterol 0.5 mg-3 mg(2.5 mg base)/3 mL Solution For Nebulization 3 ml inhalation Q4H.RESPIRATORY PRN (Reason: Shortness Of Breath) Qty: 100 RF: 0 sertraline 100 mg tablet 100 mg PO DAILY RF: 0 vitamin B complex Tablet 1 tab PO DAILY RF: 0 Multiple Vitamin, Womens Tablet 1 tab PO DAILY RF: 0 Discharge Orders: Discharge Order (Routine); Ordered 07/19/20 Ordered By: Jackson Stuart Referrals: Alvino Kimble MD [Primary Care Provider] - Discharge Diet: Low Salt Discharge Activity: Increase activity as tolerated Patient Instructions: Diabetes and Diet, Fall Prevention (ED), Diabetic Hyperglycemia (ED) Activity Restrictions/Additional Instructions: Follow-up with medical provider as directed in the next 7 to 10 days for reevaluation. Continue taking all home medications as prescribed. Return to the ER or your medical provider if condition worsens. Please read and understand discharge instructions. If any questions, please ask. Discharge Date/Time: 07/20/20 00:35 Coding Level of Care Code ED [employer] Safety Program Coordinator for Jani Fwd Exam Comprehensive
--- NOTE | 2020-07-19 21:03 | ECG_ITS ---
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: : 1935 Requested By: Jackson Stuart Order Number: [id number] Reading MD: YENNIFER CHOUDHURY Measurements Intervals [place] Rate: 58 P: 74 DC: 172 QRS: 41 QRSD: 92 T: 40 QT: 468 QTc: 464 Interpretive Statements SINUS BRADYCARDIA WITH OCCASIONAL SUPRAVENTRICULAR PREMATURE COMPLEXES Compared to ECG 03/19/2020 21:56:03 Sinus rhythm no longer present T-wave abnormality no longer present Electronically Signed On 07-20-2020 19:29:12 [employer] by YENNIFER CHOUDHURY [email or web address] systemShopping Mailpremier health atrium medical centerOcarina Technologies/store/[id number]
--- NOTE | 2020-07-19 21:04 | XR_ITS ---
WS: [id number] XR chest 1V portable [id number] REASON FOR EXAM: dizzy when ambulating FINDINGS: The chest is unchanged compared to previous examination of 03/19/2020. Marked tortuosity of the thoracic aorta and cardiac enlargement. No active pulmonary parenchymal or pleural disease. Old healed healing fracture of the right humerus. XR/XR chest 1V portable [id number] IMPRESSION: No acute chest abnormality.
[2020-07-19 22:17] VITALS: BP 115/37; PULSE 58; RESP 16; O2SAT 96
[2020-07-19 22:40] LABS: Basophils # 0.1 10^3/uL (0.0-0.1); Eosinophils # 0.2 10^3/uL (0.0-0.8); Eosinophils % 4.8 %; Hematocrit 39.9 % (37.0-47.0); Hemoglobin 12.9 g/dL (11.5-15.3); Lymphocytes % 19.9 %; Mean Corpuscular HGB Conc 32.3 g/dL (30.0-36.0); Mean Corpuscular Hemoglobin 35.6 pg (28.0-34.0); Mean Corpuscular Volume 110.2 fL (81-99); Mean Platelet Volume 9.9 fL (7.4-10.4); Monocytes # 0.6 10^3/uL (0.2-0.9); Monocytes % 12.2 %; Neutrophils # 2.97 10^3/uL (1.8-7.7); Neutrophils % 61.7 %; Nucleated Red Blood Cells % 0 %; Platelet Count 70 10^3/cmm (130-400); Red Blood Count 3.62 10^6/uL (4.1-5.3); Red Cell Distribution Width 13.4 % (12.1-15.1); White Blood Count 4.8 10^3/uL (4.0-10.0)
[2020-07-19 22:55] LABS: Troponin(5th) Baseline 12 ng/L (0-10)
[2020-07-19 23:00] VITALS: BP 96/40; PULSE 56; RESP 15; O2SAT 95
--- NOTE | 2020-07-19 23:03 | ECG_ITS ---
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
[2020-07-19 23:04] LABS: Alanine Aminotransferase 32 U/L (0-33); Albumin Level 3.9 g/dL (3.5-5.2); Alkaline Phosphatase 112 IU/L (35-105); Anion Gap 10.9 (5-19); Aspartate Amino Transferase 45 U/L (0-32); Blood Urea Nitrogen 24 mg/dL (8-23); Calcium 9.2 mg/dL (8.5-10.5); Carbon Dioxide 33 mmol/L (22-29); Chloride 104 mmol/L (98-107); Globulin 2.4 g/dL (1.3-4.6); Glucose 128 mg/dL (65-115); NT Pro B Type Natriuretic Pept 252 pg/mL (0-450); Osmolality Calculated 304 mOsm/kg (285-295); Potassium 3.9 mmol/L (3.5-5.1); Sodium 144 mmol/L (136-145); Total Bilirubin 0.8 mg/dL (0.15-1.2); Total Protein 6.3 g/dL (6.6-8.7)
[2020-07-19 23:30] VITALS: BP 96/40; PULSE 54; RESP 14; O2SAT 96
[2020-07-20 00:35] VITALS: BP 112/81; PULSE 82; RESP 16; TEMP 36.7; O2SAT 97
== END 2020-07-20 00:35 | disposition home or self-care (01) ==
PROVIDERS: Emergency Medicine; Emergency Provider Physician Assistant; PCP Family Medicine
DX: E11.65 Type 2 diabetes mellitus with hyperglycemia (principal); Z79.82 Long term (current) use of aspirin; Z79.4 Long term (current) use of insulin; J44.9 Chronic obstructive pulmonary disease, unspecified; Z86.73 Personal history of transient ischemic attack (TIA), and cerebral infarction without residual deficits; I10 Essential (primary) hypertension
CPT/HCPCS: 12345; 36415; 36416; 70450; 71045; 80053; 82962; 83880; 84484; 85025; 93005; 99282; 99283

== ENCOUNTER 2020-09-18 14:39 | Outpatient (CLI) | payer MEDICARE, OTHER, SELFPAY ==
--- NOTE | 2020-09-18 14:48 | XRR_ITS ---
PROCEDURE INFORMATION: Exam: XR Chest, 2 Views Exam date and time: 09/18/2020 2:55 PM Age: 85 years old Clinical indication: Pain and injury or trauma; Fall; Blunt trauma (contusions or hematomas); Chest wall pain; Injury details: PT fell 2 weeks ago left rib pain posteriorly; Additional info: Left sided rib pain/hx of accidental fall TECHNIQUE: Imaging protocol: XR of the chest Views: 2 views. COMPARISON: CR XR chest 1V portable [id number] 07/19/2020 9:21 PM FINDINGS: Lungs: Stable COPD . Pleural space: Unremarkable. No pleural effusion. No pneumothorax. Heart/Mediastinum: Mild cardiomegaly. Bones/joints: One or more left rib fractures better visualized on rib films. XR/XR chest 2V* [id number] IMPRESSION: 1. Stable COPD . 2. Mild cardiomegaly. 3. One or more left rib fractures better visualized on rib films.
--- NOTE | 2020-09-18 14:48 | XRR_ITS ---
PROCEDURE INFORMATION: Exam: XR Left Ribs Exam date and time: 09/18/2020 2:55 PM Age: 85 years old Clinical indication: Pain and injury or trauma; Fall; Rib area, left side; Blunt trauma; Chest wall pain; Injury details: PT fell 2 weeks ago; Additional info: Left sided rib pain/hx of accidental fall TECHNIQUE: Imaging protocol: XR Left ribs. Views: 2 views. COMPARISON: CR XR chest 1V portable [id number] 07/19/2020 9:21 PM FINDINGS: Bones/joints: One or more healed left rib fractures. Acute/subacute slightly displaced left lateral 4th rib fracture. Soft tissues: Normal. XR/XR ribs LT 2V* [id number] IMPRESSION: Acute/subacute slightly displaced left lateral 4th rib fracture.
== END 2020-09-18 14:40 | disposition home or self-care (01) ==
LOC: RAD 14:44
PROVIDERS: PCP Family Medicine; Visit Provider Nurse Practitioner Family
DX: R07.81 Pleurodynia (principal); S22.32XA Fracture of one rib, left side, initial encounter for closed fracture; W19.XXXA Unspecified fall, initial encounter; I51.7 Cardiomegaly; J44.9 Chronic obstructive pulmonary disease, unspecified
CPT/HCPCS: 71046; 71100

== ENCOUNTER 2020-10-16 14:40 | Outpatient (CLI) | payer MEDICARE, OTHER, SELFPAY ==
--- NOTE | 2020-10-16 14:45 | MR_ITS ---
WS: [id number] MRI HEAD WITH CONTRAST TECHNIQUE: Sagittal T1, T2 axial, T2 axial FLAIR, axial susceptibility weighted imaging, axial diffus ion weighted images, and coronal T2 images were obtained. Pre and post-T1 axial and post T1 coronal i mages. ADC and FSPGR images. CLINICAL INFORMATION: TIA, PHILLIPS ATYPICAL COMPARISON: MRI [address] 07/19/20 FINDINGS: No evidence of restricted diffusion to suggest acute ischemia. Ventricular system and basal cisterns are patent. Moderate small vessel changes. Mild parenchymal volume loss. Normal posterior fossa. Norm al vascular flow voids at the skull base. No extra-axial fluid collections. No evidence of mass or ma ss effect. Tiny focus of hemosiderin in the right basal ganglia. No other foci of hemosiderin. Normal optic miriam sm and pituitary infundibulum. Mild symmetric atrophy temporal lobes and hippocampal formations. No a bnormal intraparenchymal enhancement. Normal dural venous sinuses. MR/MR head wo/w con [id number] IMPRESSION: 1. No evidence of restricted diffusion to suggest acute ischemia. 2. Moderate small vessel changes with mild parenchymal volume loss. Small ves luis changes progressed since 2015 3. No abnormal gadolinium enhancement. 4. Mild symmetric atrophy temporal lobes and hippocampal formations.
[2020-10-16 15:38] LABS: Blood Urea Nitrogen 17 mg/dL (8-23)
== END 2020-10-16 14:41 | disposition home or self-care (01) ==
PROVIDERS: PCP Family Medicine; Visit Provider Family Medicine
DX: G45.9 Transient cerebral ischemic attack, unspecified (principal); R51.9 Headache, unspecified; I50.9 Heart failure, unspecified; E11.9 Type 2 diabetes mellitus without complications; G31.9 Degenerative disease of nervous system, unspecified
CPT/HCPCS: 70553; 82565; 84520; A9577

== ENCOUNTER 2020-12-10 14:48 | Emergency (ER) | payer MEDICARE, OTHER, MEDICAID, SELFPAY ==
--- NOTE | 2020-12-10 15:17 | ED_ITS ---
HPI - Fall General: Chief Complaint: Fall Stated Complaint: INCREASED FALLS/ WEAKNESS Time Seen by Provider: 12/10/20 14:56 History of Present Illness: HPI Narrative: 55-year-old senior living resident who fell 2 days ago. She has had multiple falls recently. She complains of posterior right rib pain. She has had a prior history of rib fractures and wanted to see if her ribs are okay. She also has bilateral knee pain but x-rays done at the senior living were negative for acute fractures or dislocation. She however has persistent swelling in her legs despite being on oral Lasix, senior living is wondering if she could get some intravenous Lasix. complaint: fall Onset (ago): day(s) (2) Fall from: standing Fall witnessed: no Place fall occurred: senior living/SNF Loss of consciousness: None Prolonged down time: no Symptoms prior to fall: none Context: tripped/slipped Location of injury - extremities: Bilateral: knee Quality: sharp Associated symptoms-after fall: Reports other (posterior right rib pain); Denies abdominal pain, chest pain, confusion, difficulty walking, headache(s), hematuria, lightheadedness, neck pain, numbness, short of breath, vertigo or weakness Review of Systems General: Reports: 10 or more systems reviewed and unremarkable except in HPI and below Card: Denies: chest pain or lightheadedness GI: Denies: abdominal pain : Denies: hematuria Musc: Denies: neck pain Neuro: Denies: headache(s), difficulty walking, vertigo or confusion PFSH ED PFSH: Medical History Cirrhosis of liver normal labs and biopsy. Had esophageal varices. Etiology unclear. COPD (chronic obstructive pulmonary disease) Patient is having some mild shortness of breath when she came in. She had a home O2 eval requiring 2 L of oxygen per nasal cannula. She had required oxygen during her last hospitalization rehab stay. CVA (cerebral vascular accident) Diabetes Glaucoma Hypertension Hypothyroid Lichen planus Thrombocytopenia Surgical History H/O bilateral cataract extraction H/O: section History of carpal tunnel surgery History of cholecystectomy History of hysterectomy Family History Other Unknown family medical history Social History Smoking and tobacco status: never smoked Alcohol intake: never Marital status: / Physical Exam Const: COMMON NORMALS: no acute distress, average body habitus, patient oriented x3, no limitations, healthy appearing, alert and well nourished HENMT: COMMON NORMALS: normocephalic, atraumatic and moist oral mucous membranes HEAD & SCALP: normocephalic and atraumatic Neck/C-Spine: COMMON NORMALS: full ROM, supple, no meningeal signs, no JVD and No carotid bruits Chest: CHEST: Yes localized rib tenderness with anteroposterior compression (Tenderness posteriorly) Resp: COMMON NORMALS: normal respiratory effort, No retractions, No use of accessory muscles, clear to auscultation bilaterally and percussion normal AUSCULTATION: clear to auscultation bilaterally PERCUSSION: percussion normal Cardio: COMMON NORMALS: no JVD, regular rate, regular rhythm, S1 normal heart sound present, S2 normal heart sound present, No gallops present (Cardio), No clicks present (Cardio), No murmurs present (Cardio), No rub (Cardio) and Tawanna pheral pulses 2+ throughout RATE: regular rate RHYTHM: regular rhythm HEART SOUNDS: S1 normal heart sound present and S2 normal heart sound present PERIPHERAL PULSES: Peripheral pulses 2+ throughout GI: COMMON NORMALS: Normal to inspection, nondistended, normoactive bowel sounds present, Soft to palpation, non-tender, No hepatosplenomegaly present, no masses and no bruits PALPATION: Yes Soft to palpation and Yes No hepatosplenomegaly present Extremity: COMMON NORMALS: normal to inspection, full ROM, capillary refill normal, no calf tenderness and no pedal edema LEFT LOWER EXTREMITY: Yes lower leg (Swollen, mildly erythematous. Mildly tender. Calf tenderness.) Neuro: COMMON NORMALS: patient oriented x3 SENSORIUM/ORIENTATION: Yes alert MENINGEAL SIGNS: Yes no meningeal signs Skin: COMMON NORMALS: no rashes or lesions noted, no wounds, turgor normal, no jaundice, no petechiae and no mottling GENERAL SKIN EXAM: no rashes or lesions noted and turgor normal TRAUMA: abrasion OTHER: Old bruises noted to both knees. Course Reevaluation(s): Reevaluation #1: Discussed her lab and imaging findings with patient and her daughter. Negative for acute findings. Negative imaging for fracture or dislocation and DVT. She will be discharged home with no new orders. They voiced understanding and they are in agreement with the plan. Daughter says that since she has had several falls while in this assisted living facility that they will try to move her to a chcf facility where she can be supervised more closely and further prevent major injuries. Time: 18:49 Vital Signs: Vital signs: Vital Signs Temperature 98.2 F 12/10/20 16:09 Pulse Rate 67 12/10/20 18:15 Respiratory Rate 16 12/10/20 18:15 Blood Pressure 122/49 12/10/20 18:15 Pulse Oximetry 98 12/10/20 18:15 MDM - Fall MDM Narrative: Medical decision making narrative: 85-year-old female patient who lives in an assisted living facility and has had recent falls presents to the emergency department with complaints of right posterior rib pain which they were concerned may have been a fracture. Imaging done was negative for fracture of her ribs. Left lower extremity was mildly swollen, erythematous, and warm. Venous duplex was negative for a DVT. Evaluation was unremarkable in the emergency department and so she is discharged home with no new orders. Lab Data: Labs: Lab Results 12/10/20 12/10/20 12/10/20 Range/Units 16:35 16:35 17:45 WBC 5.4 (4.0-10.0) 10^3/ uL RBC 3.11 L (4.1-5.3) 10^6/u L Hgb 11.0 L (11.5-15.3) g/dL Hct 35.4 L (37.0-47.0) % MCV 113.8 H (81-99) fL MCH 35.4 H (28.0-34.0) pg MCHC 31.1 (30.0-36.0) g/dL RDW 14.2 (12.1-15.1) % Plt Count 63 L (130-400) 10^3/c mm MPV 10.1 (7.4-10.4) fL Neut % (Auto) 68.1 % Lymph % (Auto) 13.7 % [place] % (Auto) 12.4 % Eos % (Auto) 4.8 % Baso % (Auto) 0.6 % Neut # (Auto) 3.67 (1.8-7.7) 10^3/u L Lymph # (Auto) 0.7 L (0.8-4.8) 10^3/u L [place] # (Auto) 0.7 (0.2-0.9) 10^3/u L Eos # (Auto) 0.3 (0.0-0.8) 10^3/u L Baso # (Auto) 0.0 (0.0-0.1) 10^3/u L Nucleated RBC % (a uto) 0 % Nucleated RBCs # 0.0 /100WBC Sodium 143 (136-145) mmol/L Potassium 3.7 (3.5-5.1) mmol/L Chloride 101 (98-107) mmol/L Carbon Dioxide 34 H (22-29) mmol/L Anion Gap 11.7 (5-19) BUN 28 H (8-23) mg/dL Creatinine 1.0 H (0.5-0.9) mg/dL GFR Calculation Not Reportable Glucose 270 H (65-115) mg/dL POC Glucose (70-110) mg/dL Calculated Osmolal ity 311 H (285-295) mOsm/k g Calcium 8.9 (8.5-10.5) mg/dL Total Bilirubin 1.2 (0.15-1.2) mg/dL AST 29 (0-32) U/L ALT 19 (0-33) U/L Alkaline Phosphata se 93 (35-105) IU/L NT-Pro-B Natriuret Pep 427 (0-450) pg/mL Total Protein 6.6 (6.6-8.7) g/dL Albumin 3.5 (3.5-5.2) g/dL Globulin 3.1 (1.3-4.6) g/dL Urine Color Straw (Yellow) Urine Appearance Clear (CLEAR) Urine pH 5 (5-7) Ur Specific Gravit y 1.010 (1.005-1.030) Urine Protein Neg (Negative) Urine Glucose (UA) Norm (Normal) Urine Ketones Negative (Negative) Urine Blood Trace H (Negative) Urine Nitrate Negative (Negative) Urine Bilirubin Neg (Negative) Urine Urobilinogen Norm (Negative) mg/dL Ur Leukocyte Lisa ase Negative (Negative) Urine RBC Rare (0-2) /hpf Urine WBC 10-15 H (0-5) /hpf Ur Squamous Epith Cells Rare (0-5) /hpf Amorphous Sediment Not Reportable Urine Bacteria 1+ H (NONE) /hpf 12/10/20 Range/Units 18:14 WBC (4.0-10.0) 10^3/ uL RBC (4.1-5.3) 10^6/u L Hgb (11.5-15.3) g/dL Hct (37.0-47.0) % MCV (81-99) fL MCH (28.0-34.0) pg MCHC (30.0-36.0) g/dL RDW (12.1-15.1) % Plt Count (130-400) 10^3/c mm MPV (7.4-10.4) fL Neut % (Auto) % Lymph % (Auto) % [place] % (Auto) % Eos % (Auto) % Baso % (Auto) % Neut # (Auto) (1.8-7.7) 10^3/u L Lymph # (Auto) (0.8-4.8) 10^3/u L [place] # (Auto) (0.2-0.9) 10^3/u L Eos # (Auto) (0.0-0.8) 10^3/u L Baso # (Auto) (0.0-0.1) 10^3/u L Nucleated RBC % (a uto) % Nucleated RBCs # /100WBC Sodium (136-145) mmol/L Potassium (3.5-5.1) mmol/L Chloride (98-107) mmol/L Carbon Dioxide (22-29) mmol/L Anion Gap (5-19) BUN (8-23) mg/dL Creatinine (0.5-0.9) mg/dL GFR Calculation Glucose (65-115) mg/dL POC Glucose 211 H (70-110) mg/dL Calculated Osmolal ity (285-295) mOsm/k g Calcium (8.5-10.5) mg/dL Total Bilirubin (0.15-1.2) mg/dL AST (0-32) U/L ALT (0-33) U/L Alkaline Phosphata se (35-105) IU/L NT-Pro-B Natriuret Pep (0-450) pg/mL Total Protein (6.6-8.7) g/dL Albumin (3.5-5.2) g/dL Globulin (1.3-4.6) g/dL Urine Color (Yellow) Urine Appearance (CLEAR) Urine pH (5-7) Ur Specific Gravit y (1.005-1.030) Urine Protein (Negative) Urine Glucose (UA) (Normal) Urine Ketones (Negative) Urine Blood (Negative) Urine Nitrate (Negative) Urine Bilirubin (Negative) Urine Urobilinogen (Negative) mg/dL Ur Leukocyte Lisa ase (Negative) Urine RBC (0-2) /hpf Urine WBC (0-5) /hpf Ur Squamous Epith Cells (0-5) /hpf Amorphous Sediment Urine Bacteria (NONE) /hpf Imaging Data^: Other Xray: Attestation: I personally reviewed and interpreted this imaging study as follows: Radiologist's impression: [employer] [address] XRay Report Signed Patient: Renee Dhaliwal #: [id number] : 1935cct#:[id number] Age/Sex: 85 / FADM Date: 12/10/20 Loc: [facility]/Bed: Attending Dr: Ordering Provider/Ordering MD: Julissa Beckett MD, [facility] [place] Date of Service: 12/10/20 Procedure(s): XR ribs RT mn 3V w CXR1V 53827 Accession Number(s): [id number] Report Number: [id number] PROCEDURE INFORMATION: Exam: XR Right Ribs with PA Chest Exam date and time: 12/10/2020 3:20 PM Age: 85 years old Clinical indication: Pain and injury or trauma; Fall; Rib area; Blunt trauma (contusions or hematomas); Chest wall pain; Right; Additional info: Fall, rib pain TECHNIQUE: Imaging protocol: XR Right ribs with PA chest. Views: 3 views Total images: 3 COMPARISON: CR XR chest 2V* [id number] 09/18/2020 3:02 PM FINDINGS: Lungs: No visible consolidated alveolar airspace disease. Pleural spaces: Limited assessment. No visible pleural effusion or pneumothorax. Heart/Mediastinum: Cardiomegaly. Arteriosclerosis. Bones/joints: No radiographically visible rib fracture. Osteoporosis. Scoliosis. Primary osteoarthritis of the right shoulder. Other findings: Obesity. XR/XR ribs RT mn 3V w CXR1V [id number] IMPRESSION: No radiographically visible rib fracture. Dictated By:Everardo Agarwal Signed By:Faraz Agarwal Date/Time:12/10/201613 DD/ 13 Vascular: Attestation: I personally reviewed and interpreted this imaging study as follows: Radiologist's impression: [employer] [address] Ultrasound Report Signed Patient: Renee Dhaliwal MUnit #: [id number] : 1935cct#:[id number] Age/Sex: 85 / FADM Date: 12/10/20 Loc: [facility]/Bed: Attending Dr: Ordering Provider/Ordering MD: Julissa Beckett MD, [facility] [place] Date of Service: 12/10/20 Procedure(s): [place] [address] Accession Number(s): [id number] Report Number: [id number] Renee Dhaliwal Age: 85 Gender: F : 1935 Exam Date: 12/10/2020 16:04 Ordering Phys: Julissa Beckett MD [facility] [place] Technologist: Exam Location: [facility] [place] Indication: RT LEG PAIN AND EDEMA HISTORY: Lower extremity edema. PROCEDURES: Venous duplex imaging was performed in only the left lower extremity. The following venous structures were evaluated: common femoral vein, profunda vein, proximal portion of the greater saphenous vein, superficial femoral vein, and the popliteal vein. In addition, the posterior tibial and peroneal trunk were evaluated. FINDINGS: Normal 2-D Doppler and augmentation and compressibility throughout the lower extremity venous structures. Additional imaging through the proximal calf veins also reveals no thrombus. Limited evaluation of the greater saphenous vein is patent with no thrombus.. Multiple echolucent areas are noted in the subcutaneous tissue . CONCLUSIONS No evidence of DVT in the above-mentioned identifiable veins. Features of fluid retention/edema in the left leg Dr Divya Botello MD [facility] (Electronically Signed) Final Date: 10 December 2020 18:24 S Discharge Plan Discharge Patient Disposition: Home Clinical Impression: Fall against object, Leg swelling Contusion of rib on right side Qualifiers: Encounter type: initial encounter Qualified Code(s): S20.211A - Contusion of right front wall of thorax, initial encounter Condition: Stable Prescriptions: Continued (DME) Shoulder immobilizer See Rx Instructions .ROUTE .MEDSUPPLY Qty: 1 RF: 0 spironolactone 100 mg Tablet 100 mg PO DAILY@0800 RF: 0 aspirin [Aspirin Low Dose] 81 mg Tablet,Delayed Release (Dr/Ec) 81 mg PO DAILY@0600 RF: 0 insulin asp prt-insulin aspart [Novolog Mix 70-30FlexPen U-100] 100 unit/mL (70-30) Insulin Pen See Rx Instructions .ROUTE .COMPLEX RF: 0 Tylenol 325 mg Tablet 235 - 650 mg PO Q6H PRN (Reason: Pain) RF: 0 alprazolam 0.5 mg Tablet 0.5 mg PO BID PRN (Reason: Anxiety) RF: 0 Milk of Magnesia 400 mg/5 mL Suspension 15 ml PO DAILY PRN (Reason: Constipation) RF: 0 Lasix 80 mg Tablet 80 mg PO BID@0800,1400 RF: 0 meclizine 25 mg Tablet 25 mg PO QID PRN (Reason: Dizziness) RF: 0 bisacodyl 10 mg Suppository 10 mg VT DAILY PRN (Reason: CONSSTIPATION) RF: 0 Fleet Enema 19-7 gram/118 mL Enema 118 ml VT DAILY PRN (Reason: Constipation) RF: 0 propranolol 20 mg Tablet 20 mg PO BID@0800,1400 RF: 0 Culturelle 10 billion cell Capsule See Rx Instructions .ROUTE .COMPLEX RF: 0 sertraline 50 mg tablet 50 mg PO DAILY@0800 RF: 0 Proaire Hfa 2 puff inhalation Q4H PRN (Reason: Shortness Of Breath) RF: 0 levothyroxine 125 mcg Tablet 125 mcg PO DAILY@0600 RF: 0 Discharge Orders: Discharge ED (Routine); Ordered 12/10/20 Ordered By: Julissa Beckett Referrals: Alvino Kimble MD [Primary Care Provider] - 1-3 days Discharge Diet: Usual diet Discharge Activity: Increase activity as tolerated Patient Instructions: Leg Edema (ED), Fall Prevention (ED) Activity Restrictions/Additional Instructions: Turn for any new or worsening symptoms. Follow-up with your primary care provider within 3 days. Continue home medications. Coding Level of Care Code ED Doctor Of Medicine for Jani Kumar
--- NOTE | 2020-12-10 15:18 | USCV_ITS ---
Renee Dhaliwal Age: 85 Gender: F : 1935 Exam Date: 12/10/2020 16:04 Ordering Phys: Julissa Beckett [place] [facility] [place]: Exam Location: [facility] [place] Indication: RT LEG PAIN AND EDEMA HISTORY: Lower extremity edema. PROCEDURES: Venous duplex imaging was performed in only the left lower extremity. The following venous structures were evaluated: common femoral vein, profunda vein, proximal portion of the greater saphenous vein, superficial femoral vein, and the popliteal vein. In addition, the posterior tibial and peroneal trunk were evaluated. FINDINGS: Normal 2-D Doppler and augmentation and compressibility throughout the lower extremity venous structures. Additional imaging through the proximal calf veins also reveals no thrombus. Limited evaluation of the greater saphenous vein is patent with no thrombus.. Multiple echolucent areas are noted in the subcutaneous tissue . CONCLUSIONS No evidence of DVT in the above-mentioned identifiable veins. Features of fluid retention/edema in the left leg Dr Divya Botello MD [facility] (Electronically Signed) Final Date: 10 December 2020 18:24 S
[2020-12-10 16:09] VITALS: BP 133/64; PULSE 68; RESP 16; TEMP 36.8; O2SAT 99; BMI 35.5
[2020-12-10 16:38] VITALS: RESP 16; O2SAT 97
[2020-12-10] MEDS: fentaNYL 50 mcg/mL INJ 2mL 25 MCG IVP (16:38)
[2020-12-10] MEDS: ondansetron 2 mg/ML SDV 2 mL 4 MG IVP (16:39)
[2020-12-10] MEDS: FUROsemide 10 mg/mL SDV 2mL 20 MG IVP (16:39)
[2020-12-10 17:02] LABS: Basophils % 0.6 %; Eosinophils # 0.3 10^3/uL (0.0-0.8); Eosinophils % 4.8 %; Hematocrit 35.4 % (37.0-47.0); Lymphocytes # 0.7 10^3/uL (0.8-4.8); Lymphocytes % 13.7 %; Mean Corpuscular HGB Conc 31.1 g/dL (30.0-36.0); Mean Corpuscular Hemoglobin 35.4 pg (28.0-34.0); Mean Corpuscular Volume 113.8 fL (81-99); Mean Platelet Volume 10.1 fL (7.4-10.4); Monocytes # 0.7 10^3/uL (0.2-0.9); Monocytes % 12.4 %; Neutrophils # 3.67 10^3/uL (1.8-7.7); Neutrophils % 68.1 %; Nucleated Red Blood Cells % 0 %; Platelet Count 63 10^3/cmm (130-400); Red Blood Count 3.11 10^6/uL (4.1-5.3); Red Cell Distribution Width 14.2 % (12.1-15.1); White Blood Count 5.4 10^3/uL (4.0-10.0)
[2020-12-10 17:14] LABS: Alanine Aminotransferase 19 U/L (0-33); Albumin Level 3.5 g/dL (3.5-5.2); Alkaline Phosphatase 93 IU/L (35-105); Anion Gap 11.7 (5-19); Aspartate Amino Transferase 29 U/L (0-32); Blood Urea Nitrogen 28 mg/dL (8-23); Calcium 8.9 mg/dL (8.5-10.5); Carbon Dioxide 34 mmol/L (22-29); Chloride 101 mmol/L (98-107); Globulin 3.1 g/dL (1.3-4.6); Glucose 270 mg/dL (65-115); NT Pro B Type Natriuretic Pept 427 pg/mL (0-450); Osmolality Calculated 311 mOsm/kg (285-295); Potassium 3.7 mmol/L (3.5-5.1); Sodium 143 mmol/L (136-145); Total Bilirubin 1.2 mg/dL (0.15-1.2); Total Protein 6.6 g/dL (6.6-8.7)
[2020-12-10 18:15] VITALS: BP 122/49; PULSE 67; RESP 16; O2SAT 98
[2020-12-10 18:20] LABS: Glucose Point of Care 211 mg/dL (70-110)
[2020-12-10 18:34] LABS: Add Urine Microscopic? YES; Bilirubin Urine Neg (Negative); Blood Urine Trace (Negative); Glucose Urine UA Norm (Normal); Ketones Urine Negative (Negative); Leukocyte Esterase Urine Negative (Negative); Nitrate Urine Negative (Negative); Protein Urine Neg (Negative); RBC Urine RARE /hpf (0-2); Urine Appearance Clear (CLEAR); Urine Color Straw (Yellow); Urobilinogen Urine Norm (Negative); pH Urine 5 (5-7)
[2020-12-10 18:35] LABS: Add Urine Culture? No; Bacteria Urine 1+ /hpf; Squamous Epithelial Cell Urine RARE /hpf (0-5)
== END 2020-12-10 21:17 | disposition home or self-care (01) ==
PROVIDERS: Emergency Provider Family Medicine; PCP Family Medicine
DX: S20.211A Contusion of right front wall of thorax, initial encounter (principal); M79.89 Other specified soft tissue disorders; J44.9 Chronic obstructive pulmonary disease, unspecified; Z86.73 Personal history of transient ischemic attack (TIA), and cerebral infarction without residual deficits; E11.9 Type 2 diabetes mellitus without complications; I10 Essential (primary) hypertension; Z79.82 Long term (current) use of aspirin; Z79.4 Long term (current) use of insulin; W19.XXXA Unspecified fall, initial encounter
CPT/HCPCS: 36416; 71101; 80053; 81001; 82962; 83880; 85025; 93971; 96374; 96375; 99284; J1940; J2405; J3010

== ENCOUNTER 2020-12-14 17:00 | Outpatient (CLI) | payer MEDICARE, OTHER, MEDICAID, SELFPAY ==
[2020-12-14 17:41] LABS: Basophils # 0.1 10^3/uL (0.0-0.1); Eosinophils # 0.2 10^3/uL (0.0-0.8); Hematocrit 39.7 % (37.0-47.0); Hemoglobin 12.6 g/dL (11.5-15.3); Lymphocytes # 0.7 10^3/uL (0.8-4.8); Lymphocytes % 11.6 %; Mean Corpuscular HGB Conc 31.7 g/dL (30.0-36.0); Mean Corpuscular Hemoglobin 35.6 pg (28.0-34.0); Mean Corpuscular Volume 112.1 fL (81-99); Mean Platelet Volume 10.4 fL (7.4-10.4); Monocytes # 0.7 10^3/uL (0.2-0.9); Monocytes % 11.6 %; Neutrophils # 4.38 10^3/uL (1.8-7.7); Neutrophils % 72.5 %; Nucleated Red Blood Cells % 0 %; Platelet Count 86 10^3/cmm (130-400); Red Blood Count 3.54 10^6/uL (4.1-5.3); Red Cell Distribution Width 14.3 % (12.1-15.1)
[2020-12-14 18:37] LABS: Anion Gap 14.6 (5-19); Blood Urea Nitrogen 36 mg/dL (8-23); C Reactive Protein 54.4 mg/L (0.0-4.9); Calcium 9.6 mg/dL (8.5-10.5); Carbon Dioxide 36 mmol/L (22-29); Chloride 98 mmol/L (98-107); Glucose 216 mg/dL (65-115); Osmolality Calculated 315 mOsm/kg (285-295); Potassium 3.6 mmol/L (3.5-5.1); Sodium 145 mmol/L (136-145)
== END 2020-12-14 17:01 | disposition home or self-care (01) ==
PROVIDERS: PCP Family Medicine; Visit Provider Family Medicine
DX: I51.7 Cardiomegaly (principal)
CPT/HCPCS: 80048; 85025; 86140

== ENCOUNTER 2021-03-03 03:11 | Inpatient (IN) | payer MEDICARE, OTHER, MEDICAID, SELFPAY ==
[2021-03-03] VITALS (13 sets, daily range): BP systolic 110–174; BP diastolic 59–88; PULSE 67–131; RESP 14–82; TEMP 36.3–37.6; O2SAT 91–95
--- NOTE | 2021-03-03 03:26 | XRR_ITS ---
PROCEDURE INFORMATION: Exam: XR Right Hip Exam date and time: 03/03/2021 3:26 AM Age: 86 years old Clinical indication: Injury or trauma; Fall; Blunt trauma (contusions or hematomas); Right; Hip TECHNIQUE: Imaging protocol: XR Right hip. Views: 1 view hip with pelvis when performed. COMPARISON: CT abdomen pelvis w con* [id number] 09/22/2017 11:30 AM FINDINGS: Bones/joints: There is a comminuted right intertrochanteric hip fracture. Soft tissues: Unremarkable. XR/XR hip RT 2-3V wo/w pel* [id number] IMPRESSION: There is a comminuted right intertrochanteric hip fracture.
--- NOTE | 2021-03-03 03:59 | XRR_ITS ---
PROCEDURE INFORMATION: Exam: XR Chest Exam date and time: 03/03/2021 3:59 AM Age: 86 years old Clinical indication: Other: Pre op; Additional info: Clearance TECHNIQUE: Imaging protocol: XR of the chest. Views: 1 view. COMPARISON: CR XR ribs RT mn 3V w CXR1V [id number] 12/10/2020 3:34 PM FINDINGS: Lungs: Unremarkable. No consolidation. Pleural spaces: Unremarkable. No pleural effusion. No pneumothorax. Heart/Mediastinum: There is mild cardiomegaly. Bones/joints: Unremarkable. XR/XR chest 1V portable [id number] IMPRESSION: Mild cardiomegaly.
--- NOTE | 2021-03-03 04:01 | ECG_ITS ---
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 Measurements Intervals [place] Rate: 71 P: 71 CA: 179 QRS: 18 QRSD: 98 T: 28 QT: 404 QTc: 440 Interpretive Statements SINUS RHYTHM Compared to ECG 07/19/2020 22:38:58 Sinus bradycardia no longer present Sinus arrhythmia no longer present T-wave abnormality no longer present Electronically Signed On 03-03-2021 19:08:42 CDT by Divya Botello M.D. [id number]
[2021-03-03 04:12] LABS: Basophils % 0.4 %; Eosinophils % 0.1 %; Hematocrit 42.4 % (37.0-47.0); Hemoglobin 14.4 g/dL (11.5-15.3); Lymphocytes # 0.7 10^3/uL (0.8-4.8); Lymphocytes % 8.5 %; Mean Corpuscular Hemoglobin 35.4 pg (28.0-34.0); Mean Corpuscular Volume 104.2 fL (81-99); Mean Platelet Volume 10.5 fL (7.4-10.4); Monocytes # 0.5 10^3/uL (0.2-0.9); Neutrophils # 6.36 10^3/uL (1.8-7.7); Neutrophils % 82.7 %; Nucleated Red Blood Cells % 0 %; Platelet Count 75 10^3/cmm (130-400); Red Blood Count 4.07 10^6/uL (4.1-5.3); Red Cell Distribution Width 12.5 % (12.1-15.1); White Blood Count 7.7 10^3/uL (4.0-10.0)
[2021-03-03 04:22] LABS: Alanine Aminotransferase 26 U/L (0-33); Albumin Level 3.8 g/dL (3.5-5.2); Alkaline Phosphatase 177 IU/L (35-105); Aspartate Amino Transferase 29 U/L (0-32); Blood Urea Nitrogen 42 mg/dL (8-23); Calcium 9.1 mg/dL (8.5-10.5); Carbon Dioxide 31 mmol/L (22-29); Chloride 94 mmol/L (98-107); Globulin 3.2 g/dL (1.3-4.6); Glucose 373 mg/dL (65-115); Osmolality Calculated 310 mOsm/kg (285-295); Sodium 137 mmol/L (136-145); Total Bilirubin 0.9 mg/dL (0.15-1.2)
--- NOTE | 2021-03-03 04:39 | ED_ITS ---
HPI - Fall General: Chief Complaint: Fall Stated Complaint: fall with leg pain Time Seen by Provider: 03/03/21 03:15 History of Present Illness: HPI Narrative: 86-year-old jail patient who fell from a sitting position injuring her right lower extremity. She calls on pain with movement of the right hip. Onset (ago): hour(s) Fall witnessed: yes, by living facility staff Place fall occurred: jail[facility] Loss of consciousness: None Symptoms prior to fall: none Location of injury - extremities: Right: thigh Associated symptoms-after fall: Reports difficulty walking Review of Systems General: Reports: 10 or more systems reviewed and unremarkable except in HPI and below Neuro: Reports: difficulty walking PFSH ED PFSH: Medical History (Updated 03/03/21 @ 04:51 by Lex Whalen DO) Cirrhosis of liver normal labs and biopsy. Had esophageal varices. Etiology unclear. COPD (chronic obstructive pulmonary disease) Patient is having some mild shortness of breath when she came in. She had a home O2 eval requiring 2 L of oxygen per nasal cannula. She had required oxygen during her last hospitalization rehab stay. CVA (cerebral vascular accident) Diabetes Glaucoma Hypertension Hypothyroid Lichen planus Thrombocytopenia Surgical History H/O bilateral cataract extraction H/O: section History of carpal tunnel surgery History of cholecystectomy History of hysterectomy Family History Other Unknown family medical history Social History Smoking and tobacco status: never smoked Alcohol intake: never Marital status: / Physical Exam Const: GENERAL APPEARANCE: lethargic (received pain medication) ORIENTATION/CONSCIOUSNESS: Yes awake, Yes oriented to person and Yes lethargic (received pain medication) Neck/C-Spine: COMMON NORMALS: full ROM GENERAL: Yes trachea midline CERVICAL SPINE: No Cervical spine tenderness Chest: COMMONS NORMALS: normal inspection of the chest Resp: COMMON NORMALS: normal respiratory effort, No use of accessory muscles and clear to auscultation bilaterally AUSCULTATION: clear to auscultation bilaterally Cardio: COMMON NORMALS: regular rate and regular rhythm RATE: regular rate RHYTHM: regular rhythm HEART SOUNDS: Murmur heart sound present Neuro: SENSORIUM/ORIENTATION: Yes oriented to person and Yes lethargic (received pain medication) Course Consultations: Consultation #1: lucrecia Time: 04:49 Consultation #2: watson Time: 04:51 Vital Signs: Vital signs: Vital Signs Temperature 97.8 F 03/03/21 03:25 Pulse Rate 84 03/03/21 04:34 Respiratory Rate 20 H 03/03/21 04:34 Blood Pressure 147/59 03/03/21 04:34 Pulse Oximetry 94 03/03/21 04:34 MDM - Fall MDM Narrative: Medical decision making narrative: Intertrochanteric hip fracture on the right. Have consulted with the hospitalist. Orthopedics will b e called as well. Lab Data: Labs: Lab Results 03/03/21 03/03/21 03/03/21 Range/Units 03:00 03:00 04:32 WBC 7.7 (4.0-10.0) 10^3/ uL RBC 4.07 L (4.1-5.3) 10^6/u L Hgb 14.4 (11.5-15.3) g/dL Hct 42.4 (37.0-47.0) % MCV 104.2 H (81-99) fL MCH 35.4 H (28.0-34.0) pg MCHC 34.0 (30.0-36.0) g/dL RDW 12.5 (12.1-15.1) % Plt Count 75 L (130-400) 10^3/c mm MPV 10.5 H (7.4-10.4) fL Neut % (Auto) 82.7 % Lymph % (Auto) 8.5 % [place] % (Auto) 7.0 % Eos % (Auto) 0.1 % Baso % (Auto) 0.4 % Neut # (Auto) 6.36 (1.8-7.7) 10^3/u L Lymph # (Auto) 0.7 L (0.8-4.8) 10^3/u L [place] # (Auto) 0.5 (0.2-0.9) 10^3/u L Eos # (Auto) 0.0 (0.0-0.8) 10^3/u L Baso # (Auto) 0.0 (0.0-0.1) 10^3/u L Nucleated RBC % (a uto) 0 % Nucleated RBCs # 0.0 /100WBC Sodium 137 (136-145) mmol/L Potassium 4.0 (3.5-5.1) mmol/L Chloride 94 L (98-107) mmol/L Carbon Dioxide 31 H (22-29) mmol/L Anion Gap 16.0 (5-19) BUN 42 H (8-23) mg/dL Creatinine 1.2 H (0.5-0.9) mg/dL GFR Calculation Not Reportable Glucose 373 H (65-115) mg/dL POC Glucose (70-110) mg/dL Calculated Osmolal ity 310 H (285-295) mOsm/k g Calcium 9.1 (8.5-10.5) mg/dL Total Bilirubin 0.9 (0.15-1.2) mg/dL AST 29 (0-32) U/L ALT 26 (0-33) U/L Alkaline Phosphata se 177 H (35-105) IU/L Total Protein 7.0 (6.6-8.7) g/dL Albumin 3.8 (3.5-5.2) g/dL Globulin 3.2 (1.3-4.6) g/dL Urine Color Yellow (Yellow) Urine Appearance Clear (CLEAR) Urine pH 7 (5-7) Ur Specific Gravit y 1.010 (1.005-1.030) Urine Protein Neg (Negative) Urine Glucose (UA) 1+ (Normal) Urine Ketones Negative (Negative) Urine Blood Neg (Negative) Urine Nitrate Negative (Negative) Urine Bilirubin Neg (Negative) Urine Urobilinogen Norm (Negative) mg/dL Ur Leukocyte Lisa ase Negative (Negative) 03/03/21 Range/Units 04:40 WBC (4.0-10.0) 10^3/ uL RBC (4.1-5.3) 10^6/u L Hgb (11.5-15.3) g/dL Hct (37.0-47.0) % MCV (81-99) fL MCH (28.0-34.0) pg MCHC (30.0-36.0) g/dL RDW (12.1-15.1) % Plt Count (130-400) 10^3/c mm MPV (7.4-10.4) fL Neut % (Auto) % Lymph % (Auto) % [place] % (Auto) % Eos % (Auto) % Baso % (Auto) % Neut # (Auto) (1.8-7.7) 10^3/u L Lymph # (Auto) (0.8-4.8) 10^3/u L [place] # (Auto) (0.2-0.9) 10^3/u L Eos # (Auto) (0.0-0.8) 10^3/u L Baso # (Auto) (0.0-0.1) 10^3/u L Nucleated RBC % (a uto) % Nucleated RBCs # /100WBC Sodium (136-145) mmol/L Potassium (3.5-5.1) mmol/L Chloride (98-107) mmol/L Carbon Dioxide (22-29) mmol/L Anion Gap (5-19) BUN (8-23) mg/dL Creatinine (0.5-0.9) mg/dL GFR Calculation Glucose (65-115) mg/dL POC Glucose 343 H (70-110) mg/dL Calculated Osmolal ity (285-295) mOsm/k g Calcium (8.5-10.5) mg/dL Total Bilirubin (0.15-1.2) mg/dL AST (0-32) U/L ALT (0-33) U/L Alkaline Phosphata se (35-105) IU/L Total Protein (6.6-8.7) g/dL Albumin (3.5-5.2) g/dL Globulin (1.3-4.6) g/dL Urine Color (Yellow) Urine Appearance (CLEAR) Urine pH (5-7) Ur Specific Gravit y (1.005-1.030) Urine Protein (Negative) Urine Glucose (UA) (Normal) Urine Ketones (Negative) Urine Blood (Negative) Urine Nitrate (Negative) Urine Bilirubin (Negative) Urine Urobilinogen (Negative) mg/dL Ur Leukocyte Lisa ase (Negative) Discharge Plan Discharge Patient Disposition: Admitted As Inpatient Clinical Impression: Closed hip fracture Qualifiers: Encounter type: initial encounter Laterality: right Qualified Code(s): S72.001A - Fracture of unspecified part of neck of right femur, initial encounter for closed fracture Condition: Stable Coding Level of Care Code ED Automatic Winder Operator for Jani Fwd Exam Detailed
[2021-03-03 04:40] LABS: Add Urine Microscopic? NO; Charge for UA Resulting for Rev
[2021-03-03 04:41] LABS: Bilirubin Urine Neg (Negative); Blood Urine Neg (Negative); Glucose Urine UA 1+ (Normal); Ketones Urine Negative (Negative); Leukocyte Esterase Urine Negative (Negative); Nitrate Urine Negative (Negative); Protein Urine Neg (Negative); Urine Appearance Clear (CLEAR); Urine Color Yellow (Yellow); Urobilinogen Urine Norm (Negative); pH Urine 7 (5-7)
--- NOTE | 2021-03-03 04:42 | PM.HP ---
Providers/Chief Complaint Primary Care Provider: Alvino Kimble MD Chief Complaint: fall with leg pain History of Present Illness Renee Dhaliwal is a 86 year old female who presented today after sustaining a fall at the alf. Patient is a resident of [facility]. She is stating that today she was pulling a chair when she lost her balance and fell on the right side. She was in excruciating pain could not get up. She denies chest pain, loss of consciousness, seizure-like activities. No recent diarrhea, dysuria or abdominal pain. She was brought to the ER for further evaluation, diagnostics in the ER revealed thrombocytopenia, mild LAVON, right intertrochanteric hip fracture, I requested Covid antigen before surgery. Dr. Russell notified and consulted by the ER physician. Patient is noticing recurrent falls, 5 falls total in last 30 days. Review of Systems Const: Denies: fever(s) Eyes: Denies: change in vision ENMT: Denies: throat pain Card: Denies: chest pain Resp: Denies: dyspnea GI: Reports: abdominal pain : Denies: flank pain Musc: Reports: joint pain, limited range of motion, muscle cramps, muscle weakness and deformity; Denies: neck pain Skin/Breast: Denies: rash Neuro: Denies: headache(s) Psych: Reports: memory loss Endo: Denies: polyuria Jarvis/Lymph: Denies: easy bruising All/Imm: Denies: urticaria Medications/Allergies Home Medications Medication Instructions Recorded Confirmed Last Taken Type aspirin [Aspirin Low Dose] 81 mg PO DAILY@0600 09/14/19 12/10/20 12/10/20 History insulin asp prt-insulin aspart See Rx Instructions .ROUTE .COMPLEX 09/14/19 12/10/20 12/10/20 History [Novolog Mix 70-30FlexPen U-100] spironolactone 100 mg PO DAILY@0800 09/14/19 12/10/20 12/10/20 History Shoulder immobilizer #1 each 02/01/20 12/10/20 Unknown Rx Culturelle See Rx Instructions .ROUTE .COMPLEX 12/10/20 12/10/20 Unknown History Fleet Enema 118 ml PA DAILY PRN 12/10/20 12/10/20 Unknown History Lasix 80 mg PO BID@0800,1400 12/10/20 12/10/20 12/10/20 History Milk of Magnesia 15 ml PO DAILY PRN 12/10/20 12/10/20 Unknown History Proaire Hfa 2 puff INHALATION Q4H PRN 12/10/20 12/10/20 Unknown History Tylenol 235 - 650 mg PO Q6H PRN 12/10/20 12/10/20 Unknown History alprazolam 0.5 mg PO BID PRN 12/10/20 12/10/20 Unknown History bisacodyl 10 mg PA DAILY PRN 12/10/20 12/10/20 Unknown History levothyroxine 125 mcg PO DAILY@0600 12/10/20 12/10/20 12/10/20 History meclizine 25 mg PO QID PRN 12/10/20 12/10/20 12/10/20 History propranolol 20 mg PO BID@0800,1400 12/10/20 12/10/20 12/10/20 History sertraline 50 mg PO DAILY@0800 12/10/20 12/10/20 12/06/20 History Allergies Allergy/AdvReac Type Severity Reaction Status Date / Time codeine Allergy Unknown Verified 12/10/20 16:13 morphine Allergy Unknown Verified 12/10/20 16:13 Sulfa (Sulfonamide Allergy Unknown Verified 12/10/20 16:13 Antibiotics) PFSH Acute PFSH: Medical History (Updated 03/03/21 @ 05:29 by Tootie Ken MD) Cirrhosis of liver normal labs and biopsy. Had esophageal varices. Etiology unclear. COPD (chronic obstructive pulmonary disease) CVA (cerebral vascular accident) Diabetes Glaucoma Hypertension Hypothyroid Lichen planus Pneumonia Thrombocytopenia Surgical History H/O bilateral cataract extraction H/O: section History of carpal tunnel surgery History of cholecystectomy History of hysterectomy Family History Other Unknown family medical history Social History Smoking and tobacco status: never smoked Alcohol intake: never Marital status: / Vitals/I&O/Wt Last Vital Signs Temp 97.8 F 03/03/21 03:25 Pulse 84 06/20/21 04:34 Resp 20 H 03/03/21 04:34 BP 147/59 03/03/21 04:34 Pulse Ox 94 03/03/21 04:34 Physical Exam Narrative: EXAM NARRATIVE: Very pleasant and cooperative elderly female who was laying comfortably in her bed She is awake and alert oriented x3, GCS 15 no active neurological deficit S1, S2, systolic murmur appreciated right second intercostal space, radiating to her neck and over precordium, Abdomen soft bowel sounds present Bilateral breath sounds no audible stridor or wheezing Patient is wearing compression stockings, no active edema noted, dry skin of lower extremities, Appropriate mood and affect, Clinically looks dehydrated no active signs of CHF exacerbation Urinary Catheter Management^: Jay: Cath Placed During This Visit: yes Urinary Catheter Date of Insertion: 03/03/21 Urinary Catheter Time of Insertion: 04:30 Data : 03/03/21 03:00 03/03/21 03:00 A&P Assessment and plan (1) Closed hip fracture: Status: Acute Qualifiers: Encounter type: initial encounter Laterality: right Qualified Code(s): S72.001A - Fracture of unspecified part of neck of right femur, initial encounter for closed fracture (2) Thrombocytopenia: Status: Acute (3) LAVON (acute kidney injury): Status: Acute Additional A&P Information Closed right intertrochanteric fracture Bedrest N.p.o. Morphine for analgesia along bowel regimen Jay catheter placement Dr. 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 Russell's recommendation, RCRI class II risk due to age, LAVON and use of insulin LAVON: This seems secondary to dehydration, clinically she looks dry, hold Lasix and spironolactone Goals of care discussed with the patient, at this point she is not sure about her goals of care, full code for now she would like to discuss this with her family N.p.o. DVT prophylaxis SCDs, start anticoagulation after her surgery Hypoglycemia: We will keep her on low-dose sliding scale she is n.p.o. 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
[2021-03-03 04:44] LABS: Glucose Point of Care 343 mg/dL (70-110)
[2021-03-03 06:04] LABS: INR 1.26 (0.8-1.2)
[2021-03-03 06:05] LABS: Partial Thromboplastin Time 34.7 SECONDS (23.9-36.7)
[2021-03-03 06:26] LABS: SARS Covid-2 Antigen Negative (Negative)
[2021-03-03] MEDS: sodium chloride 0.9% 1,000 ML 75 ML IV ×2 (06:33→18:09)
[2021-03-03] MEDS: HYDROmorphone 1 mg/mL INJ 1 mL 0.4 MG IVP (06:36)
[2021-03-03] MEDS: levothyroxine 125 mcg Tablet PO (06:37)
[2021-03-03 06:55] LABS: Glucose Point of Care 302 mg/dL (70-110)
--- NOTE | 2021-03-03 09:35 | PM.CONSULT ---
Providers/Reason For Consult Consulting Physician/Specialty*: hospitalist Reason for Consult*: right hip fracture Attending Physician: Tootie Ken MD Primary Care Provider: Alvino Kimble MD History of Present Illness History of Present Illness Renee Dhaliwal is a 86 year old female sustaining a fall at the senior living. Patient is a resident of [facility]. She is stating that today she was pulling a chair when she lost her balance and fell on the right side. She was in excruciating pain could not get up. She denies chest pain, loss of consciousness, seizure-like activities. No recent diarrhea, dysuria or abdominal pain. She was brought to the ER for further evaluation, diagnostics in the ER revealed thrombocytopenia, mild LAVON, right intertrochanteric hip fracture, Review of Systems General: Reports: 10 or more systems reviewed and unremarkable except in HPI and below Const: Denies: fever(s) Eyes: Denies: change in vision or photophobia ENMT: Denies: throat pain Card: Denies: chest pain Resp: Denies: dyspnea GI: Reports: abdominal pain : Denies: flank pain Musc: Reports: joint pain, limited range of motion, muscle cramps, muscle weakness and deformity; Denies: neck pain Skin/Breast: Denies: rash Neuro: Reports: difficulty walking; Denies: headache(s) Psych: Reports: memory loss Endo: Denies: polyuria Jarvis/Lymph: Denies: easy bruising All/Imm: Denies: urticaria Meds/Allergies Home Medications and Allergies Home Medications Medication Instructions Recorded Confirmed Last Taken Type aspirin [Aspirin Low Dose] 81 mg PO DAILY@0600 09/14/19 12/10/20 12/10/20 History insulin asp prt-insulin aspart See Rx Instructions .ROUTE .COMPLEX 09/14/19 12/10/20 12/10/20 History [Novolog Mix 70-30FlexPen U-100] spironolactone 100 mg PO DAILY@0800 09/14/19 12/10/20 12/10/20 History Shoulder immobilizer #1 each 02/01/20 12/10/20 Unknown Rx Culturelle See Rx Instructions .ROUTE .COMPLEX 12/10/20 12/10/20 Unknown History Fleet Enema 118 ml IA DAILY PRN 12/10/20 12/10/20 Unknown History Lasix 80 mg PO BID@0800,1400 12/10/20 12/10/20 12/10/20 History Milk of Magnesia 15 ml PO DAILY PRN 12/10/20 12/10/20 Unknown History Proaire Hfa 2 puff INHALATION Q4H PRN 12/10/20 12/10/20 Unknown History Tylenol 235 - 650 mg PO Q6H PRN 12/10/20 12/10/20 Unknown History alprazolam 0.5 mg PO BID PRN 12/10/20 12/10/20 Unknown History bisacodyl 10 mg IA DAILY PRN 12/10/20 12/10/20 Unknown History levothyroxine 125 mcg PO DAILY@0600 12/10/20 12/10/20 12/10/20 History meclizine 25 mg PO QID PRN 12/10/20 12/10/20 12/10/20 History propranolol 20 mg PO BID@0800,1400 12/10/20 12/10/20 12/10/20 History sertraline 50 mg PO DAILY@0800 12/10/20 12/10/20 12/06/20 History Allergies Allergy/AdvReac Type Severity Reaction Status Date / Time codeine Allergy Unknown Verified 12/10/20 16:13 morphine Allergy Unknown Verified 12/10/20 16:13 Sulfa (Sulfonamide Allergy Unknown Verified 12/10/20 16:13 Antibiotics) Current Medications Current Medications Generic Name Dose Route Start Last Admin Trade Name Freq PRN Reason Stop Dose Admin Hydromorphone HCl 0.4 mg 03/03/21 06:11 03/03/21 06:36 Hydromorphone 1 Mg/Ml Inj 1 Ml IVP 0.4 mg Q4H PRN Administration AGITATION Sodium Chloride 1,000 mls @ 75 mls/hr 03/03/21 06:11 03/03/21 06:33 Sodium Chloride 0.9% IV 75 mls/hr .[id number] BLAIR Administration Insulin Aspart 0 unit 03/03/21 08:00 03/03/21 09:30 Insulin Aspart 100 Unit/1 Ml SUBCUT 10 unit WM&BEDTIME BLAIR Administration Protocol Levothyroxine Sodium 125 mcg 03/03/21 06:11 03/03/21 06:37 Levothyroxine 125 Mcg Tablet PO 125 mcg DAILY@0600 BLAIR Administration Senna/Docusate Sodium 1 tab 03/03/21 09:00 03/03/21 09:30 Sennosides-Docusate Tablet PO Not Given DAILY BLAIR PFSH Acute PFSH: Medical History (Updated 03/03/21 @ 05:29 by Tootie Ken MD) Cirrhosis of liver normal labs and biopsy. Had esophageal varices. Etiology unclear. COPD (chronic obstructive pulmonary disease) CVA (cerebral vascular accident) Diabetes Glaucoma Hypertension Hypothyroid Lichen planus Pneumonia Thrombocytopenia Surgical History H/O bilateral cataract extraction H/O: section History of carpal tunnel surgery History of cholecystectomy History of hysterectomy Family History Other Unknown family medical history Social History Smoking and tobacco status: never smoked Alcohol intake: never Marital status: / Vitals/I&O/Wt Last Vital Signs Temp 97.3 F L 03/03/21 06:13 Pulse 69 03/03/21 06:13 Resp 16 03/03/21 06:36 BP 110/70 03/03/21 06:13 Pulse Ox 92 03/03/21 06:13 Physical Exam Narrative: EXAM NARRATIVE: CONSTITUTIONAL: The patient is a normal appearing [] in no apparent distress. GENERAL: Patient in no acute distress. CARDIAC: Regular rate and rhythm. CHEST: Normal inspiratory effort, normal respiratory rate. ABDOMEN: Soft and nontender. SKIN: Clear, warm and intact. NEURO?PSYCH: The patient is alert and oriented to person, place and time. Sensorv /SILT Motor StrengthShoulder abduction C5 5/5Wrist extension C6 5/5Elbow extension C7 5/5Hand Documentation Specialist C8 5/5Finger abduction T15/5 Radial/ Ulnar/ Median n intact LowerSensory (SILT)Motor StrengthHin flexion L2/3Ant/inner thigh 5/5Hip adduction L2/3 5/5Knee extension L4 Lat thigh, 5/5Toe dorsiflexion L5 5/5Ankle dorsiflexion L5/ Q93Dffleld flexion S1 5/5 DTRBleeps 2+Triceps 2+Brachioradialis 2+Patellar 2+Achilles 2+ MUSCULOSKELETAL: [] UPPEREXTREMITIES: The patient had full active ROM in fingers, wrist, elbow, and shoulder. The patient demonstrated ability to fully flex/extend/abduct/adduct fingers, make ok sign, cross 2nd/3rd digits, extend 1st digit fully.. Radial pulse 2+, CR<2 seconds. LOWER EXTREMITIES: Pt has full, active ROM of toes, ankle, knee, and hip. Dorsalis pedis/posterior tibialis pulses 2+, CR<2 seconds. SPINE: Skin warm, dry, intact. Urinary Catheter Management^: Jay: Cath Placed During This Visit: yes Reason for Continuing Indwelling Catheter: Accurate Measurement of Urinary Output in Critically Ill Patients Urinary Catheter Date of Insertion: 03/03/21 Urinary Catheter Time of Insertion: 04:30 A&P Assessment and plan (1) Closed hip fracture: Right Hip nail tomorrow NPO after midnight Status: Acute Qualifiers: Encounter type: initial encounter Laterality: right Qualified Code(s): S72.001A - Fracture of unspecified part of neck of right femur, initial encounter for closed fracture Consult Attestations Medical Necessity Statement: hip fracture Coding Level of Care Code 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
--- NOTE | 2021-03-03 12:10 | PC.CHAP ---
Pastoral Care Encounter/Spiritual Assessment Type of Contact [] Declined software support specialist visit [] Patient/Family/Request visit [] Outpatient visit [] Follow-up visit [] Physician referral [] Code/Alert [XX] Routine visit [] Staff referral [] Actively dying [XX] Patient sleeping [] Family support [] [] Out of room [] Palliative care [] [] Receiving care in room [] Pre-surgical visit [] Trauma [] Long length of stay [] ICU visit [] Other: Relational/Emotional Strength [] Patient feels connected with others/family/visitors/staff [] Distress [] Loneliness/isolation [] Abandonment Spirituality of Patient [] Person of Angelica [] Attends Orthodox of their Angelica [] Believes in Prayer [] Reads Bible or Adventist materials [] There are Spiritual issues to be addressed Vending Machine Filler Interventions [] Prayer [] Active listening [] Non-anxious presence [] Spiritual/emotional support [] Crisis/trauma care [] Spiritual counseling [] Bereavement support [] Provided bereavement packet [] Provided Bible/devotional materials [] Provided toy/stuffed animal, coloring book to patient or family member [] Provided Communion [] Anointing/[place] [] Salvation [] Completed spiritual assessment [] Other: Impact on Illness or Injury [] Angry [] Fearful [] Anxious [] Often cries [] Exhaustion [] Unable to work [] Unable to attend catholic [] Unable to walk/stand [] Unable to read [] Unable to drive [] Unable to eat/drink [] Unable to sleep [] Unable to be with family [] Patient intubated [] Other: Summary Time spent with patient
[2021-03-03 12:22] LABS: Glucose Point of Care 242 mg/dL (70-110)
--- NOTE | 2021-03-03 13:29 | PC.NURSE ---
updated patient's family on patient's condition.
--- NOTE | 2021-03-03 17:02 | P.PN_ITS ---
Subjective Subjective: Interval history: Admitted overnight. H&P labs noted. Examination lying comfortably in bed. Complains of mild pain. Denies any nausea vomiting, headache. Plan for OR with Dr. Russell tomorrow. Vitals/I&O/Wt Last Vital Signs Temp 99.6 F 03/03/21 11:46 Pulse 98 03/03/21 11:46 Resp 16 03/03/21 11:46 BP 151/88 03/03/21 11:46 Pulse Ox 92 03/03/21 11:46 Weight last 48 hrs Weight 85.729 kg Physical Exam Narrative: EXAM NARRATIVE: Very pleasant and cooperative elderly female who was laying comfortably in her bed, dehydrated. She is awake and alert oriented x3, GCS 15 no active neurological deficit S1, S2, systolic murmur appreciated right second intercostal space, radiating to her neck and over precordium, Abdomen soft bowel sounds present Bilateral breath sounds no audible stridor or wheezing Patient is wearing compression stockings, no active edema noted, dry skin of lower extremities, Appropriate mood and affect, Urinary Catheter Management^: Jay: Cath Placed During This Visit: yes Reason for Continuing Indwelling Catheter: Accurate Measurement of Urinary Output in Critically Ill Patients Urinary Catheter Date of Insertion: 03/03/21 Urinary Catheter Time of Insertion: 04:30 Data : 03/03/21 03:00 03/03/21 03:00 A&P Assessment and plan (1) Closed hip fracture: Status: Acute Qualifiers: Encounter type: initial encounter Laterality: right Qualified Code(s): S72.001A - Fracture of unspecified part of neck of right femur, initial encounter for closed fracture (2) Thrombocytopenia: Status: Acute (3) LAVON (acute kidney injury): Status: Acute Additional A&P Information Closed right intertrochanteric fracture: Ortho consulted. OR tomorrow. NPO after modnight. No AC for now. Foot pumps. [place] 5 Q8h PRN, tramadol 50 mg Q6h PRN HTN: Goal less than 140/90 mmhg. C/w home dose propanolol for now. ECHO LAVON: Dehydration and home dose diuretics. IVF @75 cc/hr. Monitor for fluid overload. 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 Russell's recommendation, RCRI class II risk due to age, LAVON and use of insulin Type 2 DM: HBA1c ISS at low dose protocol. Monitor for hypoglycemia Check TIBC, Ferritin, TSH, B12, folate. FC Cardiac diet, n.p.o. after midnight. DVT prophylaxis SCDs, start anticoagulation after her surgery Attestations Medical Necessity Statement*: Requires further hospitalization for surgical correction of closed right intertrochanteric fracture, LAVON, type 2 diabetes mellitus Time Spent in Patient Care: Greater than 35 minutes (>than 50% of time spent in counselling and/or direct pt care on unit) . Coding Level of Care Code Acute Trouble Locator Test Desk for Chg Fwd Diagnoses Closed hip fracture S72.001A Encounter type: initial encounter Laterality: right Thrombocytopenia D69.6 LAVON (acute kidney injury) N17.9
--- NOTE | 2021-03-03 17:09 | PC.NURSE ---
Wet patient lips with sponge
[2021-03-03 17:20] LABS: Glucose Point of Care 116 mg/dL (70-110)
[2021-03-03 17:37] LABS: NT Pro B Type Natriuretic Pept 192 pg/mL (0-450); Procalcitonin 0.06 ng/mL (0-0.5)
[2021-03-03 17:46] LABS: Thyroid Stimulating Hormone 1.58 uIU/mL (0.27-4.20); Vitamin B12 1222 pg/mL (232-1245)
[2021-03-03 17:48] LABS: Folate Level 8.1 ng/mL (4.8-37.3); Iron 61 ug/dL (37-145); Percent Saturation 18.7 % (20-50); Total Iron Binding Capacity 325 mcg/dl; Unsaturated Iron Binding 264 ug/dL (112-347)
[2021-03-03] MEDS: cefTRIAXone 1,000 MG in sodium chloride 0.9% (plus) 50 ML 100 MG IV (18:08)
[2021-03-03] MEDS: ferrous gluconate 324 mg Tablet PO (18:08)
--- NOTE | 2021-03-03 18:43 | XRR_ITS ---
PROCEDURE INFORMATION: Exam: XR Right Wrist Exam date and time: 03/03/2021 6:43 PM Age: 86 years old Clinical indication: Injury or trauma; Fall; Swelling (edema); Wrist; Right; Additional info: Pain from fall TECHNIQUE: Imaging protocol: XR Right wrist. Views: 3 or more views. COMPARISON: No relevant prior studies available. FINDINGS: Bones/joints: Mild diffuse productive arthritis changes. Negative for acute fracture. Unremarkable joint space alignment. Mild ulnar negative variance. Soft tissues: Distal soft tissue swelling. XR/XR wrist RT min 3V* [id number] IMPRESSION: No acute fractures or traumatic joint space malalignment.
--- NOTE | 2021-03-03 18:48 | XRR_ITS ---
PROCEDURE INFORMATION: Exam: XR Right Elbow Exam date and time: 03/03/2021 6:48 PM Age: 86 years old Clinical indication: Injury or trauma; Fall; Swelling (edema); Elbow; Right; Additional info: Pain from fall TECHNIQUE: Imaging protocol: XR Right elbow. Views: 3 or more views. COMPARISON: No relevant prior studies available. FINDINGS: Bones/joints: Normal. Soft tissues: Unremarkable. XR/XR elbow RT min 3V* [id number] IMPRESSION: No acute osseous findings.
--- NOTE | 2021-03-03 18:49 | PC.NURSE ---
rcvd verbal order from Dr Waite for xr arm and wrist right side and Trazadone 50mg at HS. ticket writer entered orders
[2021-03-03] MEDS: ipratropium-albuterol 3 mL Neb INHALATION (20:06)
[2021-03-03 20:58] LABS: Glucose Point of Care 195 mg/dL (70-110)
[2021-03-04] VITALS (21 sets, daily range): BP systolic 95–159; BP diastolic 56–80; PULSE 68–105; RESP 14–20; TEMP 36.4–37.6; O2SAT 90–98
--- NOTE | 2021-03-04 | XR_ITS ---
WS: [id number] C-ARM RADIOGRAPHS RIGHT HIP; 3 IMAGES HISTORY: ORIF right hip COMPARISON: 03/03/2021 Intraoperative imaging during ORIF RIGHT intertrochanteric hip fracture. Normal alignment of the frac ture and hardware. XR/XR hip RT 2-3V wo/w pel* [id number] IMPRESSION: Intraoperative ORIF RIGHT hip fracture now in good position and alignment.
--- NOTE | 2021-03-04 | SCC_ITS ---
Procedure Done: Right hip nail 63.5 seconds of fluoroscopic guidance, for a cumulative dose of 20.48 mGy, was provided to Dr. Russell by the radiology department. C-arm images of the RIGHT hip were saved for the patient's permanent record. [facility]
[2021-03-04] MEDS: ipratropium-albuterol 3 mL Neb INHALATION ×3 (03:07→19:59)
[2021-03-04 06:10] LABS: Basophils # 0.1 10^3/uL (0.0-0.1); Basophils % 0.4 %; Eosinophils # 0.1 10^3/uL (0.0-0.8); Eosinophils % 0.4 %; Hematocrit 37.5 % (37.0-47.0); Hemoglobin 12.3 g/dL (11.5-15.3); Lymphocytes # 1.1 10^3/uL (0.8-4.8); Lymphocytes % 9.6 %; Mean Corpuscular HGB Conc 32.8 g/dL (30.0-36.0); Mean Corpuscular Hemoglobin 35.3 pg (28.0-34.0); Mean Corpuscular Volume 107.8 fL (81-99); Mean Platelet Volume 10.4 fL (7.4-10.4); Monocytes # 1.3 10^3/uL (0.2-0.9); Monocytes % 11.2 %; Neutrophils # 9.03 10^3/uL (1.8-7.7); Nucleated Red Blood Cells % 0 %; Platelet Count 87 10^3/cmm (130-400); Red Blood Count 3.48 10^6/uL (4.1-5.3); Red Cell Distribution Width 13.2 % (12.1-15.1); White Blood Count 11.9 10^3/uL (4.0-10.0)
--- NOTE | 2021-03-04 06:11 | PC.NURSE ---
pt down to surgery
[2021-03-04 06:25] LABS: Estmated Average Glucose 192; Hemoglobin A1C 8.3 % (4.0-6.0)
--- NOTE | 2021-03-04 06:26 | PC.NURSE ---
Patient belongings Patient was taken down to surgery with a ring on. RN from surgical dept. brought patients ring up in a bag. Patients ring and necklace were placed in [facility]
--- NOTE | 2021-03-04 06:31 | ANES.PREANE2 ---
Pre-Anesthetic Assessment Pre-Anesthetic Assessment: Height/Weight: Height 1.52 m Weight 85.729 kg Temp Pulse Resp BP Pulse Ox 98.4 F 86 18 121/56 91 03/04/21 03:00 03/04/21 03:09 03/04/21 03:07 03/04/21 03:00 03/04/21 03:07 Preop Diagnosis: Hip fracture Proposed Procedure: Operation Date: 03/04/21 07:40 Proposed Procedures p Trochanteric Femoral Nail(Right) - Jered Russell, DO Familial anesthetic complications: None Was Beta Gaurang taken within 24 hours: N/A Was Clonidine taken within 24 hours: N/A Last intake: Intake Last Liquid Date 03/04/21 Last Liquid Time 00:00 Last Solid Date 03/03/21 Last Solid Time 17:00 Social: Social History: No alcohol and No tobacco Exam: Pre-Anes Outpt Exam: alert, oriented x 3, clear to auscultation bilaterally and regular rate & rhythm Airway: Cervical ROM: WNL MP: 3 Dentition: False Pulmonary: Pulmonary: COPD (2 - L NC prn) CV/HEM: CV/HEM: CHF and HTN Comments: thrombocytopenia Metabolic: Metabolic: DM and Thyroid Anesthetic Plan: ASA status: 3 Risk of > 500 ml blood loss (7ml/kg in children): Yes, adequate IV access and fluids planned Meds/Allergies Current Medications: Current Medications Generic Name Dose Route Start Last Admin Trade Name Freq PRN Reason Stop Dose Admin Albuterol/Ipratrop ium 3 ml 03/03/21 21:00 03/04/21 03:07 Ipratropium-Albu terol 3 Ml Neb INHALATION 3 ml Q6H.RESPIRATORY S CH Administration Ferrous Gluconate 324 mg 03/03/21 18:00 03/03/21 18:08 Ferrous Gluconat e 324 Mg Tablet PO 324 mg BIDWM BLAIR Administration Sodium Chloride 1,000 mls @ 75 ml s/hr 03/03/21 06:11 03/03/21 18:09 Sodium Chloride 0.9% IV 75 mls/hr .[id number] BLAIR Administration Ceftriaxone Sodium 1,000 mg/ 50 mls @ 100 mls/ hr 03/03/21 18:00 03/03/21 18:40 Sodium Chloride IV Infused Q24H BLAIR Infusion Protocol Insulin Aspart 0 unit 03/03/21 08:00 03/03/21 21:07 Insulin Aspart 1 00 Unit/1 Ml SUBCUT 4 unit WM&BEDTIME BLAIR Administration Protocol Levothyroxine Sodi um 125 mcg 03/03/21 06:11 03/04/21 05:05 Levothyroxine 12 5 Mcg Tablet PO Not Given DAILY@0600 BLAIR Senna/Docusate Sod ium 1 tab 03/03/21 09:00 03/03/21 09:30 Sennosides-Docus ate Tablet PO Not Given DAILY BLAIR PFSH Anesthesia PFSH: Medical History (Updated 03/03/21 @ 05:29 by Tootie Ken MD) Cirrhosis of liver normal labs and biopsy. Had esophageal varices. Etiology unclear. COPD (chronic obstructive pulmonary disease) CVA (cerebral vascular accident) Diabetes Glaucoma Hypertension Hypothyroid Lichen planus Pneumonia Thrombocytopenia Surgical History H/O bilateral cataract extraction H/O: section History of carpal tunnel surgery History of cholecystectomy History of hysterectomy Family History Other Unknown family medical history Social History Smoking and tobacco status: never smoked Alcohol intake: never Marital status: / Data Anesthesia CBC & Chem 7: 03/04/21 05:29 03/03/21 03:00 Other Labs: Laboratory Results - last 48 hr 03/03/21 03/03/21 03/03/21 03:00 03:00 03:00 WBC 7.7 RBC 4.07 L Hgb 14.4 Hct 42.4 MCV 104.2 H MCH 35.4 H MCHC 34.0 RDW 12.5 Plt Count 75 L MPV 10.5 H Neut % (Auto) 82.7 Lymph % (Auto) 8.5 Campbell % (Auto) 7.0 Eos % (Auto) 0.1 Baso % (Auto) 0.4 Neut # (Auto) 6.36 Lymph # (Auto) 0.7 L Campbell # (Auto) 0.5 Eos # (Auto) 0.0 Baso # (Auto) 0.0 Nucleated RBC % (auto) 0 Nucleated RBCs # 0.0 PT INR APTT Sodium 137 Potassium 4.0 Chloride 94 L Carbon Dioxide 31 H Anion Gap 16.0 BUN 42 H Creatinine 1.2 H GFR Calculation Not Reportable Glucose 373 H POC Glucose Estimat Average Glucose Hemoglobin A1c Calculated Osmolality 310 H Calcium 9.1 Iron 61 TIBC 325 % Saturation 18.7 L Unsat Iron Binding 264 Total Bilirubin 0.9 AST 29 ALT 26 Alkaline Phosphatase 177 H NT-Pro-B Natriuret Pep 192 Total Protein 7.0 Albumin 3.8 Globulin 3.2 Vitamin B12 Folate Procalcitonin 0.06 TSH Urine Color Urine Appearance Urine pH Ur Specific [place] Urine Protein Urine Glucose (UA) Urine Ketones Urine Blood Urine Nitrate Urine Bilirubin Urine Urobilinogen Ur Leukocyte Esterase SARS-CoV-2 Ag (Rapid) 03/03/21 03/03/21 03/03/21 03:00 03:00 04:32 WBC RBC Hgb Hct MCV MCH MCHC RDW Plt Count MPV Neut % (Auto) Lymph % (Auto) [place] % (Auto) Eos % (Auto) Baso % (Auto) Neut # (Auto) Lymph # (Auto) Campbell # (Auto) Eos # (Auto) Baso # (Auto) Nucleated RBC % (auto) Nucleated RBCs # PT INR APTT Sodium Potassium Chloride Carbon Dioxide Anion Gap BUN Creatinine GFR Calculation Glucose POC Glucose Estimat Average Glucose Hemoglobin A1c Calculated Osmolality Calcium Iron TIBC % Saturation Unsat Iron Binding Total Bilirubin AST ALT Alkaline Phosphatase NT-Pro-B Natriuret Pep Total Protein Albumin Globulin Vitamin B12 1222 Folate 8.1 Procalcitonin TSH 1.58 Urine Color Yellow Urine Appearance Clear Urine pH 7 Ur Specific [place] 1.010 Urine Protein Neg Urine Glucose (UA) 1+ Urine Ketones Negative Urine Blood Neg Urine Nitrate Negative Urine Bilirubin Neg Urine Urobilinogen Norm Ur Leukocyte Esterase Negative SARS-CoV-2 Ag (Rapid) 03/03/21 03/03/21 03/03/21 04:40 05:30 05:40 WBC RBC Hgb Hct MCV MCH MCHC RDW Plt Count MPV Neut % (Auto) Lymph % (Auto) [place] % (Auto) Eos % (Auto) Baso % (Auto) Neut # (Auto) Lymph # (Auto) Campbell # (Auto) Eos # (Auto) Baso # (Auto) Nucleated RBC % (auto) Nucleated RBCs # PT 16.10 H INR 1.26 H APTT 34.7 Sodium Potassium Chloride Carbon Dioxide Anion Gap BUN Creatinine GFR Calculation Glucose POC Glucose 343 H Estimat Average Glucose Hemoglobin A1c Calculated Osmolality Calcium Iron TIBC % Saturation Unsat Iron Binding Total Bilirubin AST ALT Alkaline Phosphatase NT-Pro-B Natriuret Pep Total Protein Albumin Globulin Vitamin B12 Folate Procalcitonin TSH Urine Color Urine Appearance Urine pH Ur Specific [place] Urine Protein Urine Glucose (UA) Urine Ketones Urine Blood Urine Nitrate Urine Bilirubin Urine Urobilinogen Ur Leukocyte Esterase SARS-CoV-2 Ag (Rapid) Negative 03/03/21 03/03/21 03/03/21 06:50 12:18 16:51 WBC RBC Hgb Hct MCV MCH MCHC RDW Plt Count MPV Neut % (Auto) Lymph % (Auto) [place] % (Auto) Eos % (Auto) Baso % (Auto) Neut # (Auto) Lymph # (Auto) Campbell # (Auto) Eos # (Auto) Baso # (Auto) Nucleated RBC % (auto) Nucleated RBCs # PT INR APTT Sodium Potassium Chloride Carbon Dioxide Anion Gap BUN Creatinine GFR Calculation Glucose POC Glucose 302 H 242 H 116 H Estimat Average Glucose Hemoglobin A1c Calculated Osmolality Calcium Iron TIBC % Saturation Unsat Iron Binding Total Bilirubin AST ALT Alkaline Phosphatase NT-Pro-B Natriuret Pep Total Protein Albumin Globulin Vitamin B12 Folate Procalcitonin TSH Urine Color Urine Appearance Urine pH Ur Specific [place] Urine Protein Urine Glucose (UA) Urine Ketones Urine Blood Urine Nitrate Urine Bilirubin Urine Urobilinogen Ur Leukocyte Esterase SARS-CoV-2 Ag (Rapid) 03/03/21 03/04/21 03/04/21 20:45 05:29 05:29 WBC 11.9 H RBC 3.48 L Hgb 12.3 Hct 37.5 MCV 107.8 H MCH 35.3 H MCHC 32.8 RDW 13.2 Plt Count 87 L MPV 10.4 Neut % (Auto) 76.0 Lymph % (Auto) 9.6 Campbell % (Auto) 11.2 Eos % (Auto) 0.4 Baso % (Auto) 0.4 Neut # (Auto) 9.03 H Lymph # (Auto) 1.1 Campbell # (Auto) 1.3 H Eos # (Auto) 0.1 Baso # (Auto) 0.1 Nucleated RBC % (auto) 0 Nucleated RBCs # 0.0 PT INR APTT Sodium Potassium Chloride Carbon Dioxide Anion Gap BUN Creatinine GFR Calculation Glucose POC Glucose 195 H Estimat Average Glucose 192 Hemoglobin A1c 8.3 H Calculated Osmolality Calcium Iron TIBC % Saturation Unsat Iron Binding Total Bilirubin AST ALT Alkaline Phosphatase NT-Pro-B Natriuret Pep Total Protein Albumin Globulin Vitamin B12 Folate Procalcitonin TSH Urine Color Urine Appearance Urine pH Ur Specific [place] Urine Protein Urine Glucose (UA) Urine Ketones Urine Blood Urine Nitrate Urine Bilirubin Urine Urobilinogen Ur Leukocyte Esterase SARS-CoV-2 Ag (Rapid) Micro: Microbiology 03/03/21 18:25 Legionella Urinary Antigen - Final Urine Catheterized 03/03/21 17:54 Blood Culture - Preliminary Blood SPECIMEN COLLECTED 03/03/21 17:47 Blood Culture - Preliminary Blood SPECIMEN COLLECTED Cardiac Studies: No Data to Display
--- NOTE | 2021-03-04 06:41 | W.PM.OPSUD ---
Surgery/Procedure H&P Update DATE OF PROCEDURE: March 04, 2021 DATE H&P PERFORMED: 03/03/21 H&P UPDATE INFORMATION: I have reviewed H&P completed within last 30 days, I have examined patient prior to procedure and No changes to prior documentation PREOP DIAGNOSIS: Hip fracture PLANNED PROCEDURE: Operation Date: 03/04/21 07:40 Proposed Procedures p Trochanteric Femoral Nail(Right) - Jered Russell DO
[2021-03-04 06:45] LABS: Glucose Point of Care 237 mg/dL (70-110)
[2021-03-04 06:48] LABS: Alanine Aminotransferase 25 U/L (0-33); Albumin Level 3.1 g/dL (3.5-5.2); Alkaline Phosphatase 142 IU/L (35-105); Anion Gap 15.3 (5-19); Aspartate Amino Transferase 33 U/L (0-32); Blood Urea Nitrogen 36 mg/dL (8-23); Calcium 8.3 mg/dL (8.5-10.5); Carbon Dioxide 29 mmol/L (22-29); Chloride 103 mmol/L (98-107); Chol HDL Ratio 2.37 mg/dL (0.0-4.40); Cholesterol 116 mg/dL (0-200); Globulin 2.7 g/dL (1.3-4.6); Glucose 224 mg/dL (65-115); HDL Cholesterol 49 mg/dL (60-100); LDL Cholesterol Calculated 49 mg/dL (50-129); Osmolality Calculated 311 mOsm/kg (285-295); Potassium 4.3 mmol/L (3.5-5.1); Sodium 143 mmol/L (136-145); Total Bilirubin 1.2 mg/dL (0.15-1.2); Total Protein 5.8 g/dL (6.6-8.7); Triglycerides 90 mg/dL (0-150); VLDL Cholestrol Calculation 18 mg/dL (0-30)
--- NOTE | 2021-03-04 08:07 | P.OP_ITS ---
Operative Report Date of procedure: March 04, 2021 Pre-op Diagnosis: Hip fracture Post-op diagnosis: same Procedure Done: Right hip nail Surgeon: Jered Russell Anesthesia: General Estimated blood loss (mL): 5 Condition: stable Disposition: PACU Procedure: Right hip nail Patient was brought to the operative suite. After undergoing anesthesia patient was placed in the supine position on the fracture table. All areas of impingement were well-padded. Skin incision made at the proximal part of the hip. Starting pin was inserted. Opening reamer was inserted. [place] gamma nail was inserted. Guidewire was placed in the center center position of the femoral head. Lag screw was reamed. 90 lag screws placed. This confirmed to be in a poor position on AP lateral fluoroscopy. And then a distal locking screws placed through the guide. AP lateral fluoroscopy ensured the fracture and hardware preposition. Wounds irrigated closed with Vicryl and larry. Sterile dressings applied patient transferred to the PACU in stable condition.
--- NOTE | 2021-03-04 08:12 | P.PCN_ITS ---
PACU note PACU note: VSS, Good respiratory effort, report to HOOK AND EYE ATTACHER Post-Anesthesia Exam: awake
--- NOTE | 2021-03-04 08:12 | PM.PACU ---
PACU note PACU note: VSS, Good respiratory effort, report to MICA PATCHER Post-Anesthesia Exam: awake
[2021-03-04 08:21] LABS: Glucose Point of Care 232 mg/dL (70-110)
--- NOTE | 2021-03-04 08:25 | SUR.PHASEI ---
PT SLEEPS QUIETLY, OPENS EYES TO VOICE, VERBALLY DENIES PAIN AND NAUSEA, PT SMILING, GOOD RESP EFFORT ON 3LNC RT HIP DRESSING D/I WITH STRONG REGULAR PULSES TO RT FOOT. REGULAR ICE TO RT HIP.
--- NOTE | 2021-03-04 09:31 | PC.NURSE ---
changed diet from regular to const carb diet. patient is diabetic
[2021-03-04] MEDS: sodium chloride 0.9% 1,000 ML 75 ML IV ×2 (10:07→23:34)
[2021-03-04] MEDS: sennosides-docusate Tablet 1 TAB PO (10:07)
[2021-03-04] MEDS: HYDROcodone-acetaminophen 5-325 mg Tablet 1 TAB PO ×2 (10:08→23:41)
[2021-03-04 10:42] LABS: Glucose Point of Care 319 mg/dL (70-110)
--- NOTE | 2021-03-04 12:09 | PC.CHAP ---
Pastoral Care Encounter/Spiritual Assessment Type of Contact [] Declined fire information officer visit [] Patient/Family/Request visit [] Outpatient visit [x] Follow-up visit [] Physician referral [] Code/Alert [] Routine visit [] Staff referral [] Actively dying [x] Patient sleeping [] Family support [] [] Out of room [] Palliative care [] [] Receiving care in room [] Pre-surgical visit [] Trauma [] Long length of stay [] ICU visit [] Other: Relational/Emotional Strength [] Patient feels connected with others/family/visitors/staff [] Distress [] Loneliness/isolation [] Abandonment Spirituality of Patient [] Person of Angelica [] Attends Mu-Ism of their Angelica [] Believes in Prayer [] Reads Bible or Adventism materials [] There are Spiritual issues to be addressed Php Lamp Developer Interventions [] Prayer [] Active listening [] Non-anxious presence [] Spiritual/emotional support [] Crisis/trauma care [] Spiritual counseling [] Bereavement support [] Provided bereavement packet [] Provided Bible/devotional materials [] Provided toy/stuffed animal, coloring book to patient or family member [] Provided Communion [] Anointing/[place] [] Salvation [] Completed spiritual assessment [] Other: Impact on Illness or Injury [] Angry [] Fearful [] Anxious [] Often cries [] Exhaustion [] Unable to work [] Unable to attend mormonism [] Unable to walk/stand [] Unable to read [] Unable to drive [] Unable to eat/drink [] Unable to sleep [] Unable to be with family [] Patient intubated [] Other: Summary Time spent with patient
--- NOTE | 2021-03-04 12:14 | PC.CHAP ---
Pastoral Care Encounter/Spiritual Assessment Type of Contact [] Declined softlines supervisor visit [] Patient/Family/Request visit [] Outpatient visit [x] Follow-up visit [] Physician referral [] Code/Alert [] Routine visit [] Staff referral [] Actively dying [x] Patient sleeping [] Family support [] [] Out of room [] Palliative care [] [] Receiving care in room [] Pre-surgical visit [] Trauma [] Long length of stay [] ICU visit [] Other: Relational/Emotional Strength [] Patient feels connected with others/family/visitors/staff [] Distress [] Loneliness/isolation [] Abandonment Spirituality of Patient [] Person of Angelica [] Attends Zoroastrianism of their Angelica [] Believes in Prayer [] Reads Bible or Mu-Ism materials [] There are Spiritual issues to be addressed Supervisory Cbp Officer Interventions [] Prayer [] Active listening [] Non-anxious presence [] Spiritual/emotional support [] Crisis/trauma care [] Spiritual counseling [] Bereavement support [] Provided bereavement packet [] Provided Bible/devotional materials [] Provided toy/stuffed animal, coloring book to patient or family member [] Provided Communion [] Anointing/[place] [] Salvation [] Completed spiritual assessment [] Other: Impact on Illness or Injury [] Angry [] Fearful [] Anxious [] Often cries [] Exhaustion [] Unable to work [] Unable to attend advent [] Unable to walk/stand [] Unable to read [] Unable to drive [] Unable to eat/drink [] Unable to sleep [] Unable to be with family [] Patient intubated [] Other: Summary Time spent with patient
--- NOTE | 2021-03-04 12:15 | PC.CHAP ---
Pastoral Care Encounter/Spiritual Assessment Type of Contact [] Declined glass blower visit [] Patient/Family/Request visit [] Outpatient visit [] Follow-up visit [] Physician referral [] Code/Alert [] Routine visit [] Staff referral [] Actively dying [] Patient sleeping [] Family support [] [] Out of room [] Palliative care [] [] Receiving care in room [] Pre-surgical visit [] Trauma [] Long length of stay [] ICU visit [] Other: Relational/Emotional Strength [] Patient feels connected with others/family/visitors/staff [] Distress [] Loneliness/isolation [] Abandonment Spirituality of Patient [xx] Person of Angelica [x] Attends Mu-Ism of their Angelica [x] Believes in Prayer [] Reads Bible or Scientology materials [] There are Spiritual issues to be addressed Straightening Machine Operator Interventions []x Prayer [] Active listening [] Non-anxious presence [] Spiritual/emotional support [] Crisis/trauma care [] Spiritual counseling [] Bereavement support [] Provided bereavement packet [] Provided Bible/devotional materials [] Provided toy/stuffed animal, coloring book to patient or family member [] Provided Communion [] Anointing/[place] [] Salvation [] Completed spiritual assessment [] Other: Impact on Illness or Injury [] Angry [] Fearful [] Anxious [] Often cries [] Exhaustion [] Unable to work [] Unable to attend congregational [] Unable to walk/stand [] Unable to read [] Unable to drive [] Unable to eat/drink [] Unable to sleep [] Unable to be with family [] Patient intubated [] Other: Summary Time spent with patient
[2021-03-04] MEDS: enoxaparin 40 mg/0.4 mL Syringe SUBCUT (15:09)
--- NOTE | 2021-03-04 15:34 | PC.RESP ---
PULMONARY REHAB INFORMATION SENT TO PATIENT.
--- NOTE | 2021-03-04 15:49 | ANE.PACU2 ---
Inpatient post-anesthesia follow up: Airway intact: Yes Vital signs: Temperature 98.5 F Pulse Rate [Right Radial] 67 Pulse Rate 105 Respiratory Rate 16 Blood Pressure [Ri ght Arm] 174/66 Blood Pressure 117/61 Pulse Oximetry 97 Oxygen Delivery Me thod Nasal Cannula Oxygen Flow Rate 2 Fraction of Inspir ed Oxygen Hydration adequate: Yes Nausea and vomiting: No Pain level: 1 Mental status: Baseline
--- NOTE | 2021-03-04 15:58 | PM.PN ---
Subjective Subjective: Interval history: Patient was seen and examined this morning, no acute events overnight, s/p : Right hip nail. Vitals/I&O/Wt Last Vital Signs Temp 98.5 F 03/04/21 15:22 Pulse 105 H 03/04/21 15:22 Resp 16 03/04/21 15:22 BP 117/61 03/04/21 15:22 Pulse Ox 97 03/04/21 15:22 03/04/21 03/04/21 03/04/21 06:59 14:59 22:59 Intake Total 1440 / 1440 Output Total 225 / 750 30 / Balance -225 / 290 1410 / 1410 Weight last 48 hrs Weight 85.729 kg Physical Exam Const: COMMON NORMALS: patient oriented x3 HENMT: COMMON NORMALS: normocephalic and atraumatic HEAD & SCALP: normocephalic and atraumatic Chest: CHEST: Yes Symmetrical chest wall rise Resp: COMMON NORMALS: normal respiratory effort, No retractions, No use of accessory muscles and clear to auscultation bilaterally EFFORT & INSPECTION: Yes symmetric chest movement AUSCULTATION: clear to auscultation bilaterally Cardio: COMMON NORMALS: regular rate, regular rhythm, S1 normal heart sound present, S2 normal heart sound present, No gallops present (Cardio), No murmurs present (Cardio), No rub (Cardio) and Peripheral pulses 2+ throughout RATE: regular rate RHYTHM: regular rhythm HEART SOUNDS: S1 normal heart sound present and S2 normal heart sound present PERIPHERAL PULSES: Peripheral pulses 2+ throughout GI: COMMON NORMALS: Normal to inspection, nondistended, normoactive bowel sounds present, Soft to palpation, non-tender, No hepatosplenomegaly present and no masses AUSCULTATION: Yes normoactive bowel sounds PALPATION: Yes Soft to palpation and Yes No hepatosplenomegaly present RECTAL EXAM: deferred Extremity: NARRATIVE EXTREMITY EXAM: Right hip dressing clean Neuro: COMMON NORMALS: patient oriented x3 Urinary Catheter Management^: Jay: Cath Placed During This Visit: yes Reason for Continuing Indwelling Catheter: Accurate Measurement of Urinary Output in Critically Ill Patients Urinary Catheter Date of Insertion: 03/03/21 Urinary Catheter Time of Insertion: 04:30 Data : 03/04/21 05:29 03/04/21 05:29 Micro: Microbiology 03/03/21 18:25 Legionella Urinary Antigen - Final Urine Catheterized 03/03/21 17:54 Blood Culture - Preliminary Blood SPECIMEN COLLECTED 03/03/21 17:47 Blood Culture - Preliminary Blood SPECIMEN COLLECTED A&P Assessment and plan (1) Closed hip fracture: Status: Acute Qualifiers: Encounter type: initial encounter Laterality: right Qualified Code(s): S72.001A - Fracture of unspecified part of neck of right femur, initial encounter for closed fracture (2) Thrombocytopenia: Status: Acute (3) LAVON (acute kidney injury): Status: Acute Additional A&P Information Closed right intertrochanteric fracture: Ortho consulted. OR tomorrow. NPO after modnight. No AC for now. Foot pumps. Hernandez 5 Q8h PRN, tramadol 50 mg Q6h PRN HTN: Goal less than 140/90 mmhg. C/w home dose propanolol for now. ECHO LAVON: Dehydration and home dose diuretics. IVF @75 cc/hr. Monitor for fluid overload. 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 Russell's recommendation, RCRI class II risk due to age, LAVON and use of insulin Type 2 DM: HBA1c:8.3 ISS at low dose protocol. Monitor for hypoglycemia Check TIBC, Ferritin, TSH, B12, folate. FC Cardiac diet, n.p.o. after midnight. DVT prophylaxis: Lovenox 40 subcu daily Attestations Medical Necessity Statement*: Patient needs to be in hospital for management of right hip fracture. Coding Level of Care Code Acute Grounds And Nursery Specialist for Jani Fwd Diagnoses Closed hip fracture S72.001A Encounter type: initial encounter Laterality: right Thrombocytopenia D69.6 LAVON (acute kidney injury) N17.9
--- NOTE | 2021-03-04 16:19 | PC.CHAP ---
Pastoral Care Encounter/Spiritual Assessment Type of Contact [] Declined supervisor stitching department visit [x] Patient/Family/Request visit [] Outpatient visit [] Follow-up visit [] Physician referral [] Code/Alert [] Routine visit [] Staff referral [] Actively dying [] Patient sleeping [] Family support [] [] Out of room [] Palliative care [] [] Receiving care in room [] Pre-surgical visit [] Trauma [] Long length of stay [] ICU visit [] Other: Relational/Emotional Strength [x] Patient feels connected with others/family/visitors/staff [] Distress [] Loneliness/isolation [] Abandonment Spirituality of Patient [x] Person of Angelica [] Attends Yazdanism of their Angelica [x] Believes in Prayer [] Reads Bible or Mormonism materials [] There are Spiritual issues to be addressed Electrical Assistant Interventions [x] Prayer [x] Active listening [x] Non-anxious presence [x] Spiritual/emotional support [] Crisis/trauma care [x] Spiritual counseling [] Bereavement support [] Provided bereavement packet [] Provided Bible/devotional materials [] Provided toy/stuffed animal, coloring book to patient or family member [] Provided Communion [x] Anointing/[place] [] Salvation [] Completed spiritual assessment [] Other: Impact on Illness or Injury [] Angry [] Fearful [] Anxious [] Often cries [] Exhaustion [] Unable to work [] Unable to attend cheondoism [] Unable to walk/stand [] Unable to read [] Unable to drive [] Unable to eat/drink [] Unable to sleep [] Unable to be with family [] Patient intubated [] Other: Summary Patient request supervisor stitching department visit. Patient wanted director graphics but said she would settled for a Evangelical with a little laugh. Patient desired prayer and blessing. Patient and supervisor stitching department prayed together and then spend some time talking about life. Patient is a very pleasant person and enjoyable to be with. Patient daughter was by her bedside and will continue to be present daily. supervisor stitching department enquired of any other needs, none at this time. Time spent with patient 20 min
[2021-03-04] MEDS: ferrous gluconate 324 mg Tablet PO (17:10)
[2021-03-04 17:11] LABS: Glucose Point of Care 444 mg/dL (70-110)
[2021-03-04] MEDS: cefTRIAXone 1,000 MG in sodium chloride 0.9% (plus) 50 ML 100 MG IV (17:21)
[2021-03-04 20:34] LABS: Glucose Point of Care 348 mg/dL (70-110)
[2021-03-04] MEDS: insulin glargine 100 units/1 mL 20 UNIT SUBCUT (21:01)
[2021-03-04] MEDS: trazodone 50 mg Tablet PO (23:41)
[2021-03-05] VITALS (12 sets, daily range): BP systolic 110–132; BP diastolic 57–74; PULSE 77–110; RESP 16–18; TEMP 36.9–37; O2SAT 90–99
[2021-03-05] MEDS: ipratropium-albuterol 3 mL Neb INHALATION ×4 (02:39→21:13)
--- NOTE | 2021-03-05 06:00 | USCV_ITS ---
Renee Dhaliwal Age: 86 Gender: F : 1935 Exam Date: 03/05/2021 06:22 Ordering Phys: Rajinder Francis MD Technologist: Cindy Campbell Exam [place] [facility] [place]ication: Pulm Htn and DD BP: 120 / 69 HR: 106 Rhythm: Sinus Technical Quality: Very technically difficult study MEASUREMENTS (Male / Female) Normal Values 2D ECHO LV Diastolic Diameter PLAX 2.2 cm 4.2 - 5.9 / 3.9 - 5.3 cm LV Systolic Diameter PLAX 1.5 cm IVS Diastolic Thickness 1.3 cm 0.6 - 1.0 / 0.6 - 0.9 cm IVS Systolic Thickness 1.5 cm LVPW Diastolic Thickness 1.2 cm 0.6 - 1.0 / 0.6 - 0.9 cm LVPW Systolic Thickness 1.6 cm LVOT Diameter 2.0 cm LV Ejection Fraction 2D Teich 60.8 % LA Diameter 2.6 cm Aorta at Sinotubular Diameter 2.3 cm M-MODE Aortic Annulus Diameter 2.1 cm LA Ao Ratio MM 1.3 MV E Point Septal Separation 0.5 cm DOPPLER AV Peak Velocity 371.0 cm/s LVOT Peak Velocity 161.0 cm/s AV Area Cont Eq vti 1.2 cm squared AV Area Cont Eq pk 1.4 cm squared MV Area PHT 2.2 cm squared Mitral E to A Ratio 0.6 MV E' Velocity 37.5 cm/s Mitral E to MV E' Ratio 8.9 Mitral E to LV E' Lateral Ratio 10.6 Mitral E to LV E' Septal Ratio 7.7 TR Peak Velocity 443.0 cm/s TR Peak Gradient 78.5 mmHg TV Peak E Velocity 35.0 cm/s Right Atrial Pressure 3.0 mmHg Pulmonary Artery Systolic Pressu 81.5 mmHg PV Peak Velocity 238.0 cm/s RV Acceleration Time 0.1 s RV Ejection Time 0.2 s RV AcT/ET 0.5 FINDINGS Left Ventricle Normal left ventricular size and systolic function, EF 65% . Mild left ventricular hypertrophy. No regional wall motion abnormalities. Grade I/IV diastolic dysfunction (abnormal relaxation filling pattern), normal to mildly elevated filling pressures. Right Ventricle The right ventricle is normal in size and function. Right Atrium The right atrium is normal in size. Left Atrium The left atrium is normal in size. Mitral Valve Thickened mitral valve. Mild mitral annular calcification. Aortic Valve Moderate aortic valve calcification. Moderate aortic valve stenosis with a valve area 1.2 cm scar. Tricuspid Valve Mild tricuspid valve regurgitation. Poor Doppler signals. The tricuspid valve regurgitation velocity was found to be 4.43 m/s with a peak gradient of 78.3 mmHg. Estimated PA pressure was 81.3mmHg. Because of the suboptimal Doppler signals, this estimation could be misleading Pulmonic Valve Pulmonic valve not well visualized. Pericardium No pericardial effusion. Aorta Normal aortic annulus size. CONCLUSIONS Pt very confused and unable to cooperate for exam. Best images possible. Normal left ventricular size and systolic function, EF 65% . Mild left ventricular hypertrophy. No regional wall motion abnormalities. Grade I/IV diastolic dysfunction (abnormal relaxation filling pattern), normal to mildly elevated filling pressures. Thickened mitral valve. Mild mitral annular calcification. Moderate aortic valve calcification. Moderate aortic valve stenosis with a valve area 1.2 cm2 Pulmonary hypertension with an estimated pulmonary artery peak systolic pressure of 81 mmHg. This could be misleading because of poor Doppler signals. There is no pericardial effusion. There are no intracardiac masses. Technically difficult study because of the poor ultrasonic window. Dr Divya Botello MD FACC (Electronically Signed) Final Date: 05 March 2021 17:40 S
[2021-03-05 06:11] LABS: Basophils % 0.3 %; Eosinophils # 0.1 10^3/uL (0.0-0.8); Eosinophils % 0.4 %; Hematocrit 30.1 % (37.0-47.0); Lymphocytes # 1.4 10^3/uL (0.8-4.8); Lymphocytes % 9.1 %; Mean Corpuscular HGB Conc 33.2 g/dL (30.0-36.0); Mean Corpuscular Hemoglobin 35.7 pg (28.0-34.0); Mean Corpuscular Volume 107.5 fL (81-99); Mean Platelet Volume 9.9 fL (7.4-10.4); Monocytes # 1.4 10^3/uL (0.2-0.9); Monocytes % 9.5 %; Neutrophils # 11.95 10^3/uL (1.8-7.7); Neutrophils % 78.4 %; Nucleated Red Blood Cells % 0 %; Platelet Count 80 10^3/cmm (130-400); Red Cell Distribution Width 13.1 % (12.1-15.1); White Blood Count 15.2 10^3/uL (4.0-10.0)
[2021-03-05 06:30] LABS: Blood Urea Nitrogen 36 mg/dL (8-23); Carbon Dioxide 26 mmol/L (22-29); Chloride 98 mmol/L (98-107); Glucose 324 mg/dL (65-115); Osmolality Calculated 301 mOsm/kg (285-295); Sodium 135 mmol/L (136-145)
[2021-03-05] MEDS: levothyroxine 125 mcg Tablet PO (06:46)
[2021-03-05 06:55] LABS: Glucose Point of Care 310 mg/dL (70-110)
[2021-03-05] MEDS: ferrous gluconate 324 mg Tablet PO ×2 (09:14→18:49)
[2021-03-05] MEDS: sennosides-docusate Tablet 1 TAB PO (09:15)
[2021-03-05] MEDS: bacitracin ointment Pkt 1 EACH TOPICAL (09:15)
[2021-03-05] MEDS: HYDROcodone-acetaminophen 5-325 mg Tablet 1 TAB PO ×2 (09:20→16:52)
--- NOTE | 2021-03-05 11:26 | PC.NURSE ---
Rcvd verbal order from Dr Moreau for 7 units Novolog before meals and Serequel 100 PO at HS starting tonight and changed Hydrocodone order from Q8H to Q6H. ad copy writer put orders in as requested
[2021-03-05 11:47] LABS: Glucose Point of Care 399 mg/dL (70-110)
--- NOTE | 2021-03-05 13:04 | P.PN_ITS ---
Subjective Subjective: Interval history: Pain controlled sitting up eating lunch. Vitals/I&O/Wt Last Vital Signs Temp 98.6 F 03/05/21 12:00 Pulse 102 H 03/05/21 12:00 Resp 16 03/05/21 12:00 BP 120/73 03/05/21 12:00 Pulse Ox 90 03/05/21 12:00 03/04/21 03/05/21 03/05/21 22:59 06:59 14:59 Intake Total 100 / 1540 1050 / 2590 170 / 170 Output Total 0 30 500 / 530 Balance 100 / 1510 550 / 2060 170 / 170 Physical Exam Narrative: EXAM NARRATIVE: Sitting up in chair. Daughter was at bedside. Urinary Catheter Management^: Jay: Cath Placed During This Visit: yes Reason for Continuing Indwelling Catheter: Accurate Measurement of Urinary O utput in Critically Ill Patients Urinary Catheter Date of Insertion: 03/03/21 Urinary Catheter Time of Insertion: 04:30 Data : 03/05/21 05:37 03/05/21 05:37 Micro: Microbiology 03/03/21 17:54 Blood Culture - Preliminary Blood NEGATIVE TO DATE 03/03/21 17:47 Blood Culture - Preliminary Blood NEGATIVE TO DATE 03/03/21 18:25 MRSA Culture - Final Nose A&P Assessment and plan (1) Closed hip fracture: Postop day #1 right hip nail. Weight-bear as tolerated Status: Acute Qualifiers: Encounter type: initial encounter Laterality: right Qualified Code(s): S72.001A - Fracture of unspecified part of neck of right femur, initial encounter for closed fracture Attestations Medical Necessity Statement*: pain control Coding Level of Care Code Acute Assistant Plant Controller for [facility] Fwd Diagnoses Closed hip fracture S72.001A Encounter type: initial encounter Laterality: right
[2021-03-05] MEDS: enoxaparin 40 mg/0.4 mL Syringe SUBCUT (13:33)
--- NOTE | 2021-03-05 14:13 | PM.PN ---
Subjective Subjective: Interval history: Patient was seen and examined this morning, still complaining of pain in the RT lower extremity. Vitals/I&O/Wt Last Vital Signs Temp 98.6 F 03/05/21 12:00 Pulse 102 H 03/05/21 12:00 Resp 16 03/05/21 12:00 BP 120/73 03/05/21 12:00 Pulse Ox 90 03/05/21 12:00 03/04/21 03/05/21 03/05/21 22:59 06:59 14:59 Intake Total 100 / 1540 1050 / 2590 170 / 170 Output Total 0 / 30 500 / 530 Balance 100 / 1510 550 / 2060 170 / 170 Physical Exam Const: COMMON NORMALS: patient oriented x3 HENMT: COMMON NORMALS: normocephalic and atraumatic HEAD & SCALP: normocephalic and atraumatic Chest: CHEST: Yes Symmetrical chest wall rise Resp: COMMON NORMALS: normal respiratory effort, No retractions, No use of accessory muscles and clear to auscultation bilaterally EFFORT & INSPECTION: Yes symmetric chest movement AUSCULTATION: clear to auscultation bilaterally Cardio: COMMON NORMALS: regular rate, regular rhythm, S1 normal heart sound present, S2 normal heart sound present, No gallops present (Cardio), No murmurs present (Cardio), No rub (Cardio) and Peripheral pulses 2+ throughout RATE: regular rate RHYTHM: regular rhythm HEART SOUNDS: S1 normal heart sound present and S2 normal heart sound present PERIPHERAL PULSES: Peripheral pulses 2+ throughout GI: COMMON NORMALS: Normal to inspection, nondistended, normoactive bowel sounds present, Soft to palpation, non-tender, No hepatosplenomegaly present and no masses AUSCULTATION: Yes normoactive bowel sounds PALPATION: Yes Soft to palpation and Yes No hepatosplenomegaly present RECTAL EXAM: deferred Extremity: NARRATIVE EXTREMITY EXAM: Right hip dressing clean Neuro: COMMON NORMALS: patient oriented x3 Urinary Catheter Management^: Jay: Cath Placed During This Visit: yes Reason for Continuing Indwelling Catheter: Accurate Measurement of Urinary Output in Critically Ill Patients Urinary Catheter Date of Insertion: 03/03/21 Urinary Catheter Time of Insertion: 04:30 Data : 03/05/21 05:37 03/05/21 05:37 Micro: Microbiology 03/03/21 17:54 Blood Culture - Preliminary Blood NEGATIVE TO DATE 03/03/21 17:47 Blood Culture - Preliminary Blood NEGATIVE TO DATE 03/03/21 18:25 MRSA Culture - Final Nose A&P Assessment and plan (1) Closed hip fracture: Status: Acute Qualifiers: Encounter type: initial encounter Laterality: right Qualified Code(s): S72.001A - Fracture of unspecified part of neck of right femur, initial encounter for closed fracture (2) Thrombocytopenia: Status: Acute (3) LAVON (acute kidney injury): Status: Acute (4) Leukocytosis: Status: Acute Additional A&P Information Closed right intertrochanteric fracture: S/P right hip nail Ortho consulted. [place] 5 Q8h PRN, tramadol 50 mg Q6h PRN HTN: Goal less than 140/90 mmhg. C/w home dose propanolol for now. ECHO LAVON: Dehydration and home dose diuretics. IVF @75 cc/hr. Monitor for fluid overload. Review for Nephrotoxic drugs Chronic thrombocytopenia secondary to liver cirrhosis, current platelet count 75,000. Monitor platelet count for now. Leukocytosis: Likely reactive. Low clinical suspicion for, infection. Follow lactic acid, procalcitonin. Type 2 DM: HBA1c:8.3 Lantus: 20 units at bedtime NovoLo units premeal Low-dose sliding scale insulin. Fingerstick glucose Carbohydrate consistent diet Check TIBC, Ferritin, TSH, B12, folate. DVT prophylaxis: Lovenox 40 subcu daily Attestations Medical Necessity Statement*: Patient needs to be in hospital for management of right intertrochanteric fracture. Coding Level of Care Code Acute Grinder Machine Setter for [facility] Diagnoses Closed hip fracture S72.001A Encounter type: initial encounter Laterality: right Thrombocytopenia D69.6 LAVON (acute kidney injury) N17.9 Leukocytosis D72.829
--- NOTE | 2021-03-05 16:50 | PC.NURSE ---
patient requesting xanax. internal communications writer notified Dr Moreau that patient is requesting xanax and her home med is 0.5mg xanax po bid.
--- NOTE | 2021-03-05 16:56 | PC.NURSE ---
rcvd telephone order for shayy and greeting card writer put order in.
[2021-03-05 17:08] LABS: Glucose Point of Care 318 mg/dL (70-110)
[2021-03-05] MEDS: cefTRIAXone 1,000 MG in sodium chloride 0.9% (plus) 50 ML 100 MG IV (18:49)
[2021-03-05 20:41] LABS: Glucose Point of Care 192 mg/dL (70-110)
[2021-03-05] MEDS: insulin glargine 100 units/1 mL 20 UNIT SUBCUT (22:32)
[2021-03-05] MEDS: quetiapine 100 mg Tablet PO (22:33)
[2021-03-05] MEDS: TRAMadol 50 mg Tablet PO (22:33)
[2021-03-06] VITALS (14 sets, daily range): BP systolic 89–128; BP diastolic 52–72; PULSE 67–130; RESP 15–19; TEMP 36.4–37.3; O2SAT 92–99
[2021-03-06 05:53] LABS: Basophils % 0.3 %; Eosinophils # 0.1 10^3/uL (0.0-0.8); Hematocrit 26.6 % (37.0-47.0); Hemoglobin 8.7 g/dL (11.5-15.3); Lymphocytes # 0.7 10^3/uL (0.8-4.8); Lymphocytes % 9.9 %; Mean Corpuscular HGB Conc 32.7 g/dL (30.0-36.0); Mean Corpuscular Volume 109.9 fL (81-99); Monocytes # 0.6 10^3/uL (0.2-0.9); Monocytes % 9.2 %; Neutrophils # 5.42 10^3/uL (1.8-7.7); Neutrophils % 77.5 %; Nucleated Red Blood Cells % 0 %; Platelet Count 41 10^3/cmm (130-400); Red Blood Count 2.42 10^6/uL (4.1-5.3); Red Cell Distribution Width 13.2 % (12.1-15.1)
[2021-03-06 06:07] LABS: Blood Urea Nitrogen 35 mg/dL (8-23); Carbon Dioxide 26 mmol/L (22-29); Chloride 103 mmol/L (98-107); Glucose 221 mg/dL (65-115); Osmolality Calculated 301 mOsm/kg (285-295); Sodium 138 mmol/L (136-145)
[2021-03-06] MEDS: sodium chloride 0.9% 1,000 ML 75 ML IV (06:08)
--- NOTE | 2021-03-06 06:11 | PC.NURSE ---
During morning med pass nurse gently woke pt up to take morning dose of Levothyroxine 125 mcg. Pt opened eyes and stated, oh no, not again, more antibiotics i dont need any more antibiotics. this nurse explained that the medication was not an antibiotic that it was her thyroid medication she stated again that she did not want the pill. Pt stated she was too tired and just wanted to sleep. Pt has not been sleeping well the past two shifts per report from dayshift nurses. Medication returned to the [facility] and charted as a refusal. Pt went back to sleep.
[2021-03-06 06:14] LABS: Procalcitonin 0.27 ng/mL (0-0.5)
[2021-03-06 06:20] LABS: Lactate (Lactic Acid level) 2.1 mmol/L (0.5-2.2)
[2021-03-06 06:25] LABS: Glucose Point of Care 233 mg/dL (70-110)
[2021-03-06] MEDS: ferrous gluconate 324 mg Tablet PO ×2 (09:26→17:39)
[2021-03-06] MEDS: bacitracin ointment Pkt 1 EACH TOPICAL ×2 (09:27→17:40)
[2021-03-06] MEDS: HYDROcodone-acetaminophen 5-325 mg Tablet 1 TAB PO ×2 (09:27→21:25)
[2021-03-06] MEDS: sennosides-docusate Tablet 1 TAB PO (09:27)
[2021-03-06] MEDS: ipratropium-albuterol 3 mL Neb INHALATION ×3 (09:37→21:31)
[2021-03-06 11:27] LABS: Glucose Point of Care 393 mg/dL (70-110)
--- NOTE | 2021-03-06 11:59 | PM.PN ---
Subjective Subjective: Interval history: Patient was seen and examined this morning,overall doing better.She was little winded after working with P/T Vitals/I&O/Wt Last Vital Signs Temp 99.2 F 03/06/21 11:57 Pulse 116 H 03/06/21 11:57 Resp 15 03/06/21 11:57 BP 89/52 03/06/21 11:57 Pulse Ox 92 03/06/21 11:57 03/05/21 03/06/21 03/06/21 22:59 06:59 14:59 Intake Total 1240 / 1530 160 / 1690 290 / 290 Output Total 525 / 525 300 / 825 Balance 715 / 1005 -140 / 865 290 / 290 Physical Exam Const: COMMON NORMALS: patient oriented x3 HENMT: COMMON NORMALS: normocephalic and atraumatic HEAD & SCALP: normocephalic and atraumatic Chest: CHEST: Yes Symmetrical chest wall rise Resp: COMMON NORMALS: normal respiratory effort, No retractions, No use of accessory muscles and clear to auscultation bilaterally EFFORT & INSPECTION: Yes symmetric chest movement AUSCULTATION: clear to auscultation bilaterally Cardio: COMMON NORMALS: regular rate, regular rhythm, S1 normal heart sound present, S2 normal heart sound present, No gallops present (Cardio), No murmurs present (Cardio), No rub (Cardio) and Peripheral pulses 2+ throughout RATE: regular rate RHYTHM: regular rhythm HEART SOUNDS: S1 normal heart sound present and S2 normal heart sound present PERIPHERAL PULSES: Peripheral pulses 2+ throughout GI: COMMON NORMALS: Normal to inspection, nondistended, normoactive bowel sounds present, Soft to palpation, non-tender, No hepatosplenomegaly present and no masses AUSCULTATION: Yes normoactive bowel sounds PALPATION: Yes Soft to palpation and Yes No hepatosplenomegaly present RECTAL EXAM: deferred Extremity: NARRATIVE EXTREMITY EXAM: Right hip dressing clean Neuro: COMMON NORMALS: patient oriented x3 Urinary Catheter Management^: Jay: Cath Placed During This Visit: yes Reason for Continuing Indwelling Catheter: Accurate Measurement of Urinary Output in Critically Ill Patients Urinary Catheter Date of Insertion: 03/03/21 Urinary Catheter Time of Insertion: 04:30 Data : 03/06/21 05:36 03/06/21 05:36 Micro: Microbiology 03/06/21 05:36 Blood Culture - Preliminary Blood SPECIMEN COLLECTED 03/06/21 05:30 Blood Culture - Preliminary Blood SPECIMEN COLLECTED A&P Assessment and plan (1) Closed hip fracture: Status: Acute Qualifiers: Encounter type: initial encounter Laterality: right Qualified Code(s): S72.001A - Fracture of unspecified part of neck of right femur, initial encounter for closed fracture (2) Thrombocytopenia: Status: Acute (3) LAVON (acute kidney injury): Status: Acute (4) Leukocytosis: Status: Acute Additional A&P Information Closed right intertrochanteric fracture: S/P right hip nail Ortho consulted. [place] 5 Q8h PRN, tramadol 50 mg Q6h PRN HTN: Goal less than 140/90 mmhg. C/w home dose propanolol for now. ECHO: LAVON: Dehydration and home dose diuretics.Resolved SCR is currently at baseline Initially on IVF @75 cc/hr.Has been stopped today. 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 [id number].Likely dilutional as all the three cell lines has dropped. Lovenox has been discontinued as a caution.Low suspicion for HIT: as 4T Score is low. Monitor platelet count for now. Leukocytosis: Likely reactive. Low clinical suspicion for, infection. lactic acid: Normal , Procalcitonin is normal Blood culture: MRSA nares positive: On bacitracin Empirically she has been on ceftriaxone Type 2 DM: HBA1c:8.3 Lantus: 20 units at bedtime NovoLo units premeal Low-dose sliding scale insulin. Fingerstick glucose Carbohydrate consistent diet DVT prophylaxis: Initially on Lovenox 40 subcu daily has been DC scDS Attestations Medical Necessity Statement*: Patient needs to be in hospital for management of right intertrochanteric fracture, worsening thrombocytopenia. Coding Level of Care Code Acute Program Eligibility Specialist for [facility] Fwd Exam Detailed Diagnoses Closed hip fracture S72.001A Encounter type: initial encounter Laterality: right Thrombocytopenia D69.6 LAVON (acute kidney injury) N17.9 Leukocytosis D72.829
--- NOTE | 2021-03-06 12:12 | PC.SOCIAL ---
*IMM UDPATE* Gave patient's daughter verbal IMM update. Left copy of pg 2 of IMM at bedside. Verbalized understanding. 03/06/21 @ 0334 Initialed, dated, timed and placed in chart.
--- NOTE | 2021-03-06 14:00 | ECG_ITS ---
[facility] ED Test Date: 2021-03-06 Pat Name: Renee Dhaliwal Department: Room: 256 Gender: Female Harness Maker: : 1935 Requested By: Mike Moreau Order Number: [id number] Ravinder MD: Mel Ngo M.D. Measurements Intervals [place] Rate: 119 P: 78 MA: 156 QRS: 12 QRSD: 90 T: 162 QT: 262 QTc: 369 Interpretive Statements SINUS TACHYCARDIA WITH FREQUENT SUPRAVENTRICULAR PREMATURE COMPLEXES NONSPECIFIC ST & T-WAVE ABNORMALITY Compared to ECG 03/03/2021 04:07:39 T-wave abnormality now present Sinus rhythm no longer present Electronically Signed On 03-09-2021 7:35:06 CDT by Mel Ngo M.D. [email or web address]
[2021-03-06 16:54] LABS: Glucose Point of Care 306 mg/dL (70-110)
[2021-03-06] MEDS: cefTRIAXone 1,000 MG in sodium chloride 0.9% (plus) 50 ML 100 MG IV (17:40)
[2021-03-06 20:46] LABS: Glucose Point of Care 221 mg/dL (70-110)
[2021-03-06] MEDS: propranolol 20 mg Tablet PO (21:25)
[2021-03-06] MEDS: ALPRAZolam 0.5 mg Tablet PO (21:25)
[2021-03-06] MEDS: quetiapine 100 mg Tablet PO (21:25)
[2021-03-06] MEDS: insulin glargine 100 units/1 mL 30 UNIT SUBCUT (21:25)
[2021-03-07] VITALS (7 sets, daily range): BP systolic 89–111; BP diastolic 47–67; PULSE 76–96; RESP 14–20; TEMP 36.4–36.7; O2SAT 94–100
[2021-03-07 05:55] LABS: Basophils % 0.1 %; Eosinophils # 0.2 10^3/uL (0.0-0.8); Eosinophils % 3.4 %; Hematocrit 24.4 % (37.0-47.0); Hemoglobin 7.9 g/dL (11.5-15.3); Lymphocytes # 0.7 10^3/uL (0.8-4.8); Lymphocytes % 10.5 %; Mean Corpuscular HGB Conc 32.4 g/dL (30.0-36.0); Mean Corpuscular Hemoglobin 36.1 pg (28.0-34.0); Mean Corpuscular Volume 111.4 fL (81-99); Mean Platelet Volume 10.4 fL (7.4-10.4); Monocytes # 0.7 10^3/uL (0.2-0.9); Monocytes % 10.3 %; Neutrophils # 5.05 10^3/uL (1.8-7.7); Neutrophils % 74.4 %; Nucleated Red Blood Cells % 0 %; Platelet Count 50 10^3/cmm (130-400); Red Blood Count 2.19 10^6/uL (4.1-5.3); Red Cell Distribution Width 13.5 % (12.1-15.1); White Blood Count 6.8 10^3/uL (4.0-10.0)
[2021-03-07 06:15] LABS: Anion Gap 8.2 (5-19); Blood Urea Nitrogen 51 mg/dL (8-23); Carbon Dioxide 29 mmol/L (22-29); Chloride 105 mmol/L (98-107); Glucose 131 mg/dL (65-115); Osmolality Calculated 301 mOsm/kg (285-295); Potassium 4.2 mmol/L (3.5-5.1); Sodium 138 mmol/L (136-145)
[2021-03-07] MEDS: levothyroxine 125 mcg Tablet PO (06:30)
[2021-03-07 06:32] LABS: Glucose Point of Care 140 mg/dL (70-110)
--- NOTE | 2021-03-07 07:38 | PC.NURSE ---
I reported the low bp to the nurse. 89/57 took again 79/45 The patient is sleeping well at this time
[2021-03-07] MEDS: sennosides-docusate Tablet 1 TAB PO (08:28)
[2021-03-07] MEDS: bacitracin ointment Pkt 1 EACH TOPICAL (08:28)
[2021-03-07] MEDS: ferrous gluconate 324 mg Tablet PO (08:28)
--- NOTE | 2021-03-07 08:34 | PC.NURSE ---
Held Propranolol due to blood pressure being 89/57. Physician notified.
[2021-03-07] MEDS: ipratropium-albuterol 3 mL Neb INHALATION ×2 (09:15→14:27)
--- NOTE | 2021-03-07 11:40 | P.PN_ITS ---
Subjective Subjective: Interval history: Patient resting comfortably in bed. Daughter by the bedside. Vitals/I&O/Wt Last Vital Signs Temp 97.6 F 03/07/21 11:27 Pulse 76 03/07/21 11:27 Resp 16 03/07/21 11:27 BP 111/67 03/07/21 11:27 Pulse Ox 96 03/07/21 11:27 03/06/21 03/07/21 03/07/21 22:59 06:59 14:59 Intake Total 900 / 1430 0 / 1430 240 / 240 Output Total 200 / 200 Balance 900 / 1430 -200 / 1230 240 / 240 Physical Exam Narrative: EXAM NARRATIVE: Patient is resting comfortably. Urinary Catheter Management^: Jay: Cath Placed During This Visit: yes Reason for Continuing Indwelling Catheter: Accurate Measurement of Urinary Outpu t in Critically Ill Patients Urinary Catheter Date of Insertion: 03/03/21 Urinary Catheter Time of Insertion: 04:30 Data : 03/07/21 05:25 03/07/21 05:25 Micro: Microbiology 03/06/21 05:36 Blood Culture - Preliminary Blood NEGATIVE TO DATE 03/06/21 05:30 Blood Culture - Preliminary Blood NEGATIVE TO DATE A&P Assessment and plan (1) Closed hip fracture: Patient is postop day #2 for right hip nail. She is to be weightbearing as tolerated we will see her in the clinic in 2 weeks to remove stitches. Status: Acute Qualifiers: Encounter type: initial encounter Laterality: right Qualified Code(s): S72.001A - Fracture of unspecified part of neck of right femur, initial encounter for closed fracture Attestations Medical Necessity Statement*: ok to d/c from ortho stand point Coding Level of Care Code Acute Lead Machinist for [facility] Fwd Diagnoses Closed hip fracture S72.001A Encounter type: initial encounter Laterality: right
[2021-03-07 12:15] LABS: Glucose Point of Care 221 mg/dL (70-110)
--- NOTE | 2021-03-07 12:16 | PM.DCS ---
Discharge Providers Date of Admission: 03/03/21 05:04 Date of Discharge: March 07, 2021 Attending Provider at Admission: Tootie Ken MD Attending Provider at Discharge: Mike Moreau MD Primary Care Provider: Alvino Kimble MD Diagnoses at Discharge Discharge Diagnosis (1) Closed hip fracture: Status: Acute Qualifiers: Encounter type: initial encounter Laterality: right Qualified Code(s): S72.001A - Fracture of unspecified part of neck of right femur, initial encounter for closed fracture Reason for Visit Reason for Visit: fall with leg pain Hospital Course Hospital Course 86 year old female who presented today after sustaining a fall at the shelter.Patient is a resident of [facility].She stated that she was pulling a chair when she lost her balance and fell on the right side. Further work-up in the ER revealed,right intertrochanteric hip fracture, mild LAVON, chronic thrombocytopenia. She was admitted for the management of right intertrochanteric hip fracture status post right hip nail. 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 She was empirically kept on ceftriaxone. No Antibiotics were prescribed at the time of discharge. Patient overall responded well to the above medical management and she was discharged in stable condition. Physical Exam Const: COMMON NORMALS: patient oriented x3 HENMT: COMMON NORMALS: normocephalic and atraumatic HEAD & SCALP: normocephalic and atraumatic Chest: CHEST: Yes Symmetrical chest wall rise Resp: COMMON NORMALS: normal respiratory effort, No retractions, No use of accessory muscles and clear to auscultation bilaterally EFFORT & INSPECTION: Yes symmetric chest movement AUSCULTATION: clear to auscultation bilaterally Cardio: COMMON NORMALS: regular rate, regular rhythm, S1 normal heart sound present, S2 normal heart sound present, No gallops present (Cardio), No murmurs present (Cardio), No rub (Cardio) and Peripheral pulses 2+ throughout RATE: regular rate RHYTHM: regular rhythm HEART SOUNDS: S1 normal heart sound present and S2 normal heart sound present PERIPHERAL PULSES: Peripheral pulses 2+ throughout GI: COMMON NORMALS: Normal to inspection, nondistended, normoactive bowel sounds present, Soft to palpation, non-tender, No hepatosplenomegaly present and no masses AUSCULTATION: Yes normoactive bowel sounds PALPATION: Yes Soft to palpation and Yes No hepatosplenomegaly present RECTAL EXAM: deferred Extremity: NARRATIVE EXTREMITY EXAM: Right hip dressing clean Neuro: COMMON NORMALS: patient oriented x3 Urinary Catheter Management^: Jay: Cath Placed During This Visit: yes Reason for Continuing Indwelling Catheter: Accurate Measurement of Urinary Output in Critically Ill Patients Urinary Catheter Date of Insertion: 03/03/21 Urinary Catheter Time of Insertion: 04:30 Discharge Data Data Completed and Pending: Completed Studies During Hospitalization Category Date Time Status XR chest 1V ramiro ble [id number] Urgent Exams 03/03/21 03:59 Completed XR elbow RT min 3 V* [id number] Routine Exams 03/03/21 18:48 Completed XR hip RT 2-3V wo /w pel* [id number] Rout ine Exams 03/04/21 Completed XR hip RT 2-3V wo /w pel* [id number] Stat Exams 03/03/21 03:26 Completed XR wrist RT min 3 V* [id number] Routine Exams 03/03/21 18:43 Completed CV echo complete* [id number] Routine Ultrasound 03/05/21 06:00 Completed Pending at discharge Category Date Time Status Blood Culture AM LABS Lab 03/06/21 05:36 Results Blood Culture Sta t Lab 03/03/21 17:54 Results Labs from last 24 hours 03/07/21 03/07/21 03/07/21 11:24 06:08 05:25 WBC RBC Hgb Hct MCV MCH MCHC RDW Plt Count MPV Neut % (Auto) Lymph % (Auto) [place] % (Auto) Eos % (Auto) Baso % (Auto) Neut # (Auto) Lymph # (Auto) [place] # (Auto) Eos # (Auto) Baso # (Auto) Nucleated RBC % (a uto) Nucleated RBCs # Sodium 138 Potassium 4.2 Chloride 105 Carbon Dioxide 29 Anion Gap 8.2 BUN 51 H Creatinine 1.0 H GFR Calculation Not Reportable Glucose 131 H POC Glucose 221 H 140 H Calculated Osmolal ity 301 H Calcium 8.0 L 03/07/21 03/06/21 03/06/21 05:25 20:42 16:50 WBC 6.8 RBC 2.19 L Hgb 7.9 L Hct 24.4 L MCV 111.4 H MCH 36.1 H MCHC 32.4 RDW 13.5 Plt Count 50 L MPV 10.4 Neut % (Auto) 74.4 Lymph % (Auto) 10.5 [place] % (Auto) 10.3 Eos % (Auto) 3.4 Baso % (Auto) 0.1 Neut # (Auto) 5.05 Lymph # (Auto) 0.7 L [place] # (Auto) 0.7 Eos # (Auto) 0.2 Baso # (Auto) 0.0 Nucleated RBC % (a uto) 0 Nucleated RBCs # 0.0 Sodium Potassium Chloride Carbon Dioxide Anion Gap BUN Creatinine GFR Calculation Glucose POC Glucose 221 H 306 H Calculated Osmolal ity Calcium Vitals: Last Vital Signs Temp 97.6 F 03/07/21 11:27 Pulse 76 03/07/21 11:27 Resp 16 03/07/21 11:27 BP 111/67 03/07/21 11:27 Pulse Ox 96 03/07/21 11:27 Discharge Plan Discharge Patient Disposition: Xfer SNF Condition: Stable Prescriptions: New hydrocodone-acetaminophen 5-325 mg tablet 1 tab PO Q6H PRN (Reason: pain) Qty: 20 RF: 0 Continued (DME) Shoulder immobilizer See Rx Instructions .ROUTE .MEDSUPPLY Qty: 1 RF: 0 Seroquel 100 mg Tablet 100 mg PO BEDTIME RF: 0 Benadryl Allergy 25 mg Tablet 25 mg PO Q6H PRN (Reason: UNKNOWN) RF: 0 ProAir HFA 90 mcg/actuation Hfa Aerosol Inhaler 2 puff INHALATION Q4H PRN (Reason: Shortness Of Breath) RF: 0 cyclobenzaprine 5 mg Tablet 5 mg PO TID PRN (Reason: Muscle Spasm) RF: 0 Fleet Enema 19-7 gram/118 mL Enema 118 ml [place] DAILY PRN (Reason: Constipation) RF: 0 Novolin 70-30 FlexPen U-100 100 unit/mL (70-30) Insulin Pen See Rx Instructions .ROUTE .COMPLEX RF: 0 Lantus Solostar U-100 Insulin 100 unit/mL (3 mL) Insulin Pen 20 unit SUBCUT BEDTIME RF: 0 Icy Hot Patch (lido-menthol) 4-1 % Adhesive Patch,Medicated See Rx Instructions .ROUTE .COMPLEX RF: 0 hydrocodone-acetaminophen 5-325 mg Tablet 1 tab PO Q4H PRN (Reason: Pain) 7 Days Qty: 25 RF: 0 acetaminophen [Tylenol] 325 mg Tablet 650 mg PO Q6H PRN (Reason: Pain) RF: 0 alprazolam 0.5 mg Tablet 0.5 mg PO BID@,14 RF: 0 magnesium hydroxide [Milk of Magnesia] 400 mg/5 mL Suspension 30 ml PO DAILY PRN (Reason: Constipation) RF: 0 meclizine 25 mg Tablet 25 mg PO QID PRN (Reason: Dizziness) RF: 0 bisacodyl 10 mg Suppository 10 mg [place] DAILY PRN (Reason: Constipation) RF: 0 propranolol 20 mg Tablet 20 mg PO BID RF: 0 levothyroxine 125 mcg Tablet 125 mcg PO DAILY RF: 0 Held spironolactone 100 mg Tablet 100 mg PO DAILY RF: 0 Hold Instructions: Resume on 03/13/21. furosemide [Lasix] 80 mg Tablet 80 mg PO BID RF: 0 Hold Instructions: Resume on 03/13/21. Discontinued methylprednisolone [Medrol (Ethan)] 4 mg Tablets,Dose Pack See Rx Instructions .ROUTE .COMPLEX RF: 0 Discharge Orders: Discharge Order (Routine); Ordered 03/07/21 Ordered By: Mike Moreau Referrals: [facility] [Outside] Jered Russell DO [Physician] - 2 weeks Alvino Kimble MD [Primary Care Provider] - Discharge Diet: Diabetic Patient Instructions: Open Reduction and Internal Fixation of a Hip Fracture (DC) Activity Restrictions/Additional Instructions: WBAT RLE F/U in ortho clinic 2weeks to remove stitches change dressing daily OK to shower Discharge Attestations Time Spent in Discharge Care*: less than 30 min Specific Discharge Activities: educating patient, educating and/or supporting family/caregiver, discussing with pcp/other providers, discussing with telephonic case manager/social workers/dc planners, documenting/other paperwork and evaluating patient/reviewing data Status at Discharge: Cognitive status at discharge: cognitively intact, Behavioral status at discharge: cooperative, Functional status at discharge: other assisted ambulation Overall status at discharge: patient is back to baseline Quality Metrics Clinical Quality Measures During this hospital stay, did patient experience: None Coding Level of Care Code Acute Chg FW DC note Diagnoses Closed hip fracture S72.001A Encounter type: initial encounter Laterality: right
[2021-03-07] MEDS: HYDROcodone-acetaminophen 5-325 mg Tablet 1 TAB PO (13:42)
--- NOTE | 2021-03-07 14:52 | PC.NURSE ---
Called report to receiving nurse Barbara FARRELL at [facility].
[2021-03-07 15:21] LABS: SARS Covid-2 Antigen Negative (Negative)
== END 2021-03-07 16:30 | disposition skilled nursing facility (03) | DRG 481 ==
LOC: ER 04:51 → MEDSURG 05:47
PROVIDERS: Orthopaedic Surgery; Student in an Organized Health Care Education/Training Program; Admitting Provider Internal Medicine; Emergency Provider Emergency Medicine; PCP Family Medicine; Visit Provider Internal Medicine
PROC: 0QS606Z Reposition Right Upper Femur with Intramedullary Internal Fixation Device, Open Approach (ICD-10-PCS; CPT 27245; principal; 2021-03-04 07:00)
DX: S72.141A Displaced intertrochanteric fracture of right femur, initial encounter for closed fracture (principal); N17.9 Acute kidney failure, unspecified; W18.30XA Fall on same level, unspecified, initial encounter; Y93.9 Activity, unspecified; Y92.129 Unspecified place in nursing home as the place of occurrence of the external cause; D69.59 Other secondary thrombocytopenia; K74.60 Unspecified cirrhosis of liver; J44.9 Chronic obstructive pulmonary disease, unspecified; Z86.73 Personal history of transient ischemic attack (TIA), and cerebral infarction without residual deficits; E11.39 Type 2 diabetes mellitus with other diabetic ophthalmic complication; H42 Glaucoma in diseases classified elsewhere; I10 Essential (primary) hypertension; E03.9 Hypothyroidism, unspecified; Z87.01 Personal history of pneumonia (recurrent); E86.0 Dehydration; Z79.891 Long term (current) use of opiate analgesic; Z79.51 Long term (current) use of inhaled steroids
CPT/HCPCS: 36415; 36416; 51702; 71045; 73080; 73110; 73502; 76000; 80048; 80053; 80061; 81003; 82607; 82746; 82962; 83036; 83540; 83550; 83605; 83880; 84145; 84443; 85025; 85610; 85730; 87040; 87426; 87449; 87641; 92526; 92610; 93005; 93306; 94640; 96372; 97110; 97161; 97165; 97530; 99285; C1713; J0690; J0696; J1170; J1650; J1815 ×2; J2370; J2704; J3010; J7030

== ENCOUNTER → 2021-04-04 09:14 | Outpatient (BNVA) | payer OTHER, MEDICARE, MEDICAID, SELFPAY | PROVIDERS: PCP Family Medicine; Visit Provider Orthopaedic Surgery | DX: Z98.890 Other specified postprocedural states (principal) | CPT/HCPCS: 73502 ==

== ENCOUNTER 2021-04-22 04:42 | Inpatient (IN) | payer MEDICARE, OTHER, MEDICAID, SELFPAY ==
[2021-04-22] VITALS (7 sets, daily range): BP systolic 99–116; BP diastolic 42–72; PULSE 77–97; RESP 16–18; TEMP 36.6–36.8; O2SAT 93–100; BMI 36.9
--- NOTE | 2021-04-22 04:46 | CTR_ITS ---
PROCEDURE INFORMATION: Exam: CT Head Without Contrast Exam date and time: 04/22/2021 4:46 AM Age: 86 years old Clinical indication: Injury or trauma; Fall; Blunt trauma (contusions or hematomas); Without loss of consciousness TECHNIQUE: Imaging protocol: Computed tomography of the head without contrast. Radiation optimization: All CT scans at this facility use at least one of these dose optimization techniques: automated exposure control; mA and/or kV adjustment per patient size (includes targeted exams where dose is matched to clinical indication); or iterative reconstruction. COMPARISON: MR head wo/w con [id number] 10/16/2020 2:55 PM RADIATION DOSE METRICS: Total DLP (mGy-cm): 773.17 FINDINGS: Brain: Age appropriate atrophy and small vessel ischemic change. No evidence of intracranial hemorrhage, mass effect, midline shift or extra-axial fluid collections. Midline structures are normal. Allen-white matter differentiation is normal. Cerebral ventricles: No ventriculomegaly. Paranasal sinuses: Mucosal thickening in the ethmoid and maxillary sinuses. Mastoid air cells: Visualized mastoid air cells are well aerated. Orbital cavity: The patient has had bilateral lens replacement surgery. Vasculature: Carotid atherosclerotic calcification. Bones/joints: Unremarkable. No acute fracture. Soft tissues: Unremarkable. CT/CT head wo con* [id number] IMPRESSION: No acute intracranial injury. Radiation Dose CTDIVOL = (mGy): DLP = 773.17 (mGy-cm)
--- NOTE | 2021-04-22 04:48 | W.ED.FALL ---
HPI - Fall General: Chief Complaint: Fall Stated Complaint: FALL Time Seen by Provider: 04/22/21 04:45 Source: patient and EMS Mode of arrival: EMS Limitations: no limitations History of Present Illness: HPI Narrative: 86-year-old female states she is going to the bathroom tonight at halfway and when getting out of the bathroom her walker caught on the carpet and she tripped and fell. She states she landed on her right side she has right-sided hip pain and knee pain. States she also hit her head and has slight headache. Denies any other injuries. Denies any abdominal or chest pain. She denies any neck pain. Associated symptoms-after fall: Denies abdominal pain, chest pain, headache(s) or neck pain Review of Systems Const: Denies: fever(s), chills, body aches or change in appetite Eyes: Denies: blurry vision or eye discomfort ENMT: Denies: throat pain or dental pain Card: Denies: chest pain Resp: Denies: dyspnea GI: Denies: abdominal pain, nausea, vomiting or diarrhea : Denies: dysuria Musc: Reports: extremity pain; Denies: neck pain or back pain Skin/Breast: Denies: rash Neuro: Denies: headache(s) Psych: Denies: depression Jarvis/Lymph: Denies: easy bruising All/Imm: Denies: urticaria PFSH ED PFSH: Medical History LAVON (acute kidney injury) Cirrhosis of liver normal labs and biopsy. Had esophageal varices. Etiology unclear. Closed hip fracture COPD (chronic obstructive pulmonary disease) CVA (cerebral vascular accident) Diabetes Glaucoma Hypertension Hypothyroid Leukocytosis Lichen planus Pneumonia Thrombocytopenia Surgical History H/O bilateral cataract extraction H/O: section History of carpal tunnel surgery History of cholecystectomy History of hysterectomy Family History Other Unknown family medical history Social History Alcohol intake: never Marital status: / Physical Exam Const: COMMON NORMALS: no acute distress, patient oriented x3 and healthy appearing HENMT: COMMON NORMALS: normocephalic and atraumatic HEAD & SCALP: normocephalic and atraumatic Eye: COMMON NORMALS: Equal, round and reactive pupils present and EOMs intact bilaterally PUPIL: Yes Equal, round and reactive pupils present Neck/C-Spine: COMMON NORMALS: full ROM and supple Chest: COMMONS NORMALS: normal inspection of the chest and normal palpation of entire chest wall Resp: COMMON NORMALS: normal respiratory effort, No retractions, No use of accessory muscles and clear to auscultation bilaterally AUSCULTATION: clear to auscultation bilaterally Cardio: COMMON NORMALS: regular rate, regular rhythm and No murmurs present (Cardio) RATE: regular rate RHYTHM: regular rhythm GI: COMMON NORMALS: Normal to inspection, nondistended, normoactive bowel sounds present, Soft to palpation, non-tender and no masses PALPATION: Yes Soft to palpation Extremity: NARRATIVE EXTREMITY EXAM: Tenderness to right hip along with right knee pain with movement Neuro: COMMON NORMALS: patient oriented x3, moves all extremities and no focal motor deficits Psych: COMMON NORMALS: mental status grossly normal, Normal thought process present and cooperative THOUGHT PROCESS: Normal thought process present Skin: COMMON NORMALS: no rashes or lesions noted and no wounds GENERAL SKIN EXAM: no rashes or lesions noted Course Vital Signs: Vital signs: Vital Signs Temperature 98 F 04/22/21 04:48 Pulse Rate 78 04/22/21 04:48 Respiratory Rate 18 04/22/21 04:55 Blood Pressure 99/53 04/22/21 04:48 Pulse Oximetry 100 04/22/21 04:55 MDM - Fall MDM Narrative: Medical decision making narrative: Patient presents here with a hip fracture from a fall. Patient had had a repair 3 weeks ago and appears to fracture around the repair. Spoke to hospitalist who is admitting also spoke to orthopedic surgeon who is consulted. 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 Fwd Exam Comprehensive
--- NOTE | 2021-04-22 04:49 | CTR_ITS ---
PROCEDURE INFORMATION: Exam: CT Cervical Spine Without Contrast Exam date and time: 04/22/2021 4:49 AM Age: 86 years old Clinical indication: Injury or trauma; Fall; Blunt trauma TECHNIQUE: Imaging protocol: Computed tomography images of the cervical spine without contrast. Radiation optimization: All CT scans at this facility use at least one of these dose optimization techniques: automated exposure control; mA and/or kV adjustment per patient size (includes targeted exams where dose is matched to clinical indication); or iterative reconstruction. COMPARISON: CT cervical spin wo con* [id number] 03/19/2020 9:55 PM RADIATION DOSE METRICS: Total DLP (mGy-cm): 528.02 FINDINGS: Vertebrae: There are mild degenerative changes present. Normal alignment. No acute fractures. Soft tissues: Unremarkable. Lungs: Lung apices are normal. CT/CT cervical spin wo con* [id number] IMPRESSION: No acute injury. Radiation Dose CTDIVOL = (mGy): DLP = 528.02 (mGy-cm)
[2021-04-22] MEDS: HYDROmorphone 1 mg/mL INJ 1 mL 0.5 MG IVP (04:55)
[2021-04-22] MEDS: ondansetron 2 mg/ML SDV 2 mL 4 MG IVP (04:56)
--- NOTE | 2021-04-22 05:08 | XRR_ITS ---
PROCEDURE INFORMATION: Exam: XR Right Knee Exam date and time: 04/22/2021 5:08 AM Age: 86 years old Clinical indication: Injury or trauma; Fall; Blunt trauma; Knee; Right TECHNIQUE: Imaging protocol: XR Right knee. Views: 1 or 2 views. COMPARISON: No relevant prior studies available. FINDINGS: Bones/joints: There is no definite acute fracture or dislocation. If symptoms persist, follow-up imaging in several days may be useful to exclude an occult fracture. No other significant acute bone or joint abnormality. Soft tissues: Soft tissue fullness in the suprapatellar region likely indicates evidence of joint effusion. Other findings: There are some limitations in visualization, due to less than optimal positioning. XR/XR knee RT 3V* [id number] IMPRESSION: 1. No definite acute fracture or dislocation. 2. Suspected knee joint effusion, see above. 3. Other details discussed above.
--- NOTE | 2021-04-22 05:08 | XRR_ITS ---
PROCEDURE INFORMATION: Exam: XR Right Hip Exam date and time: 04/22/2021 5:08 AM Age: 86 years old Clinical indication: Injury or trauma; Fall; Blunt trauma (contusions or hematomas); Prior surgery; Surgery date: 1-6 months; Surgery type: Right hip TECHNIQUE: Imaging protocol: XR Right hip. Views: 2 or 3 views hip with pelvis when performed. COMPARISON: CR XR hip RT 2-3V wo/w pel* [id number] 04/04/2021 9:24 AM FINDINGS: Bones/joints: Prior exams show previous intertrochanteric and subtrochanteric fractures of the right hip, with fixation hardware in place. There is now an acute oblique fracture of the proximal right femoral shaft, occurring at the distal aspect of the femoral fixation hardware. This fracture was not present on the most recent comparison exam of 04/04/2021. There is about 15 mm of medial displacement of the distal fragment, and moderate lateral and anterior angulation. Soft tissues: No significant acute finding. XR/XR hip RT 2-3V wo/w pel* [id number] IMPRESSION: 1. Acute fracture of the proximal right femoral shaft, new since 04/04/2021. See above discussion. 2. Previous/old fractures as discussed above. 3. Other details discussed above.
--- NOTE | 2021-04-22 05:21 | ECG_ITS ---
[facility] Test Date: 2021-04-22 Pat Name: Renee Dhaliwal Department: Room: 278 Gender: Female Talent Assistant: : 1935 Requested By: Rosalio Alcaraz Order Number: [id number] Ravinder MD: Aj Oneal M.D. Measurements Intervals Dazey Rate: 77 P: 76 AZ: 178 QRS: 30 QRSD: 92 T: 55 QT: 394 QTc: 448 Interpretive Statements SINUS RHYTHM Compared to ECG 03/06/2021 14:26:06 Sinus tachycardia no longer present T-wave abnormality no longer present Electronically Signed On 04-22-2021 17:28:43 CDT by Aj Oneal M.D. [email or web address] [email or web address] Holdingsochsner [email or web address] Mile Solutionscleveland clinic [email or web address] Desktop/[id number] f
--- NOTE | 2021-04-22 05:21 | XRR_ITS ---
PROCEDURE INFORMATION: Exam: XR Chest Exam date and time: 04/22/2021 5:21 AM Age: 86 years old Clinical indication: Screening exam; Pre-operative exam; Other: Hip; Additional info: Fall TECHNIQUE: Imaging protocol: XR of the chest. Views: 1 view. COMPARISON: CR XR chest 1V portable [id number] 03/03/2021 5:03 AM FINDINGS: Lungs: No CHF/pulmonary edema. Poor inspiration somewhat limits evaluation, especially of the lung bases. Visible lungs appear essentially clear. Pleural spaces: No visible pneumothorax. No definite pleural fluid. Heart/Mediastinum: Mild to moderate cardiomegaly, essentially stable. Vasculature: Moderate aortic tortuosity, similar to the prior exam. Bones/joints: No significant acute finding. Other findings: Some limitations due to patient rotation. XR/XR chest 1V portable [id number] IMPRESSION: 1. No definite CHF or pneumonia. 2. Other details discussed above.
--- NOTE | 2021-04-22 06:33 | P.HP_ITS ---
Providers/Chief Complaint Primary Care Provider: Alvino Kimble MD Chief Complaint: FALL History of Present Illness Renee Dhaliwal is a 86 year old female with a past medical history of hip fracture who can came with after mechanical fall. Upon arrival she was again noted to have fracture of prior DEEPAK. Dr. Silver consulted. Review of Systems General: Reports: 10 or more systems reviewed and unremarkable except in HPI and below Medications/Allergies Home Medications Medication Instructions Recorded Confirmed Last Taken Type spironolactone 100 mg PO DAILY 09/14/19 04/22/21 12/10/20 History Shoulder immobilizer #1 each 02/01/20 04/04/21 Unknown Rx acetaminophen [Tylenol] 650 mg PO Q6H PRN 12/10/20 04/22/21 Unknown History alprazolam 0.25 mg PO BID@,14 12/10/20 04/22/21 Unknown History bisacodyl 10 mg [place] DAILY PRN 12/10/20 04/22/21 Unknown History furosemide [Lasix] 80 mg PO BID 12/10/20 04/22/21 12/10/20 History levothyroxine 125 mcg PO DAILY 12/10/20 04/22/21 12/10/20 History magnesium hydroxide [Milk of 30 ml PO DAILY PRN 12/10/20 04/22/21 Unknown History Magnesia] propranolol 20 mg PO BID 12/10/20 04/22/21 12/10/20 History Benadryl Allergy 25 mg PO Q6H PRN 03/04/21 04/04/21 Unknown History Fleet Enema 118 ml [place] DAILY PRN 03/04/21 04/04/21 Unknown History Lantus Solostar U-100 Insulin 20 unit SUBCUT BEDTIME 03/04/21 04/22/21 Unknown History Novolin 70-30 FlexPen U-100 See Rx Instructions .ROUTE .COMPLEX 03/04/21 04/22/21 Unknown History albuterol sulfate [ProAir HFA] 2 puff INHALATION Q4H PRN 03/04/21 04/22/21 Unknown History cyclobenzaprine 5 mg PO TID PRN 03/04/21 04/04/21 Unknown History lidocaine-menthol [Icy Hot Patch See Rx Instructions .ROUTE .COMPLEX 03/04/21 04/22/21 Unknown History (lido-menthol)] quetiapine [Seroquel] 100 mg PO BEDTIME 03/04/21 04/22/21 Unknown History hydrocodone-acetaminophen 1 tab PO Q4H PRN 7 Days #25 tab 03/07/21 04/22/21 Unknown Rx hydrocodone-acetaminophen 1 tab PO Q6H PRN #20 tab 03/07/21 04/22/21 Unknown Rx lactulose 10 g PO DAILY 04/22/21 04/22/21 Unknown History Allergies Allergy/AdvReac Type Severity Reaction Status Date / Time codeine Allergy Unknown Verified 04/22/21 05:03 morphine Allergy Unknown Verified 04/22/21 05:03 Sulfa (Sulfonamide Allergy Unknown Verified 04/22/21 05:03 Antibiotics) tramadol [From Ultram] Allergy Unknown Verified 04/22/21 05:03 PFSH Acute PFSH: Medical History LAVON (acute kidney injury) Cirrhosis of liver normal labs and biopsy. Had esophageal varices. Etiology unclear. Closed hip fracture COPD (chronic obstructive pulmonary disease) CVA (cerebral vascular accident) Diabetes Glaucoma Hypertension Hypothyroid Leukocytosis Lichen planus Pneumonia Thrombocytopenia Surgical History H/O bilateral cataract extraction H/O: section History of carpal tunnel surgery History of cholecystectomy History of hysterectomy Family History Other Unknown family medical history Social History Alcohol intake: never Marital status: / Vitals/I&O/Wt Last Vital Signs Temp 98 F 04/22/21 04:48 Pulse 78 04/22/21 04:48 Resp 18 04/22/21 04:55 BP 99/53 04/22/21 04:48 Pulse Ox 100 04/22/21 04:55 Weight last 48 hrs Weight 85.729 kg Physical Exam Narrative: EXAM NARRATIVE: General : Alert, awake oriented x 3 HEENT : Grossly unremarkable CVS: RRR, Chest : CTABL ABD Soft, NT Ext no edema A&P Assessment and plan (1) Closed hip fracture: Ortho consulted Pain control Status: Acute Qualifiers: Encounter type: initial encounter Laterality: right Qualified Code(s): S72.001A - Fracture of unspecified part of neck of right femur, initial encounter for closed fracture Attestations Medical Necessity Statement*: Will require > 2 midnight stay in the hospital for eval and treatment. Time Spent in Patient Care: Greater than 35 minutes (>than 50% of time spent in counselling and/or direct pt care on unit) . 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
[2021-04-22] MEDS: acetaminophen 325 mg Tablet 650 MG PO (07:29)
[2021-04-22] MEDS: pantoprazole 40 mg SDV IVP (08:59)
--- NOTE | 2021-04-22 10:12 | PC.NURSE ---
PATIENT BP CHECK AFTER INITIAL READING OF 89/52. PATIENT BP RAISED TO 116/56. PATIENT IS COMPLAINING OF TAILBONE PAIN AND WISHES TO MOVE. PATIENT RATES PAIN AN 8/10 IN HER TAILBONE. REPORT GIVEN TO ADARSH TOLBERT.
--- NOTE | 2021-04-22 13:28 | PC.NURSE ---
Admit Note Patient admitted to Med/Surg from ED via stretcher/bed. Covering service notified. Patient presents with s/p fall resulting in a right hip fracture. Orders reviewed & will continue to monitor. Patient and/or site safety representative oriented to environment, equipment, and informed of the following as found in the admission booklet: patient rights & responsibilities, visitor policy, hand and respiratory hygiene practice. Other education includes: pain management and fall risk prevention. Patient and/or site safety representative verbalize understanding. Patient is notably sleeping heavily during admission assessment. Her daughter is at bedside and reports that patient received pain medication prior to coming to the floor. History and assessment questions answered mostly by patient's daughter. Few questions answered by patient after she woke up secondary to movement in the bed to assess skin and remove ER bedding. FLACC 0/10 upon assessment.
[2021-04-22 14:07] LABS: Coronavirus Test Green County Not Detected
[2021-04-22 16:11] LABS: Basophils # 0.1 10^3/uL (0.0-0.1); Basophils % 0.9 %; Eosinophils # 0.1 10^3/uL (0.0-0.8); Eosinophils % 1.2 %; Hematocrit 33.7 % (37.0-47.0); Hemoglobin 10.8 g/dL (11.5-15.3); Lymphocytes # 0.9 10^3/uL (0.8-4.8); Lymphocytes % 8.5 %; Mean Corpuscular Hemoglobin 35.5 pg (28.0-34.0); Mean Corpuscular Volume 110.9 fL (81-99); Mean Platelet Volume 10.4 fL (7.4-10.4); Monocytes # 1.2 10^3/uL (0.2-0.9); Neutrophils # 7.84 10^3/uL (1.8-7.7); Neutrophils % 76.8 %; Nucleated Red Blood Cells % 0 %; Platelet Count 160 10^3/cmm (130-400); Red Blood Count 3.04 10^6/uL (4.1-5.3); Red Cell Distribution Width 14.5 % (12.1-15.1); White Blood Count 10.2 10^3/uL (4.0-10.0)
[2021-04-22 16:47] LABS: Alanine Aminotransferase 20 U/L (0-33); Alkaline Phosphatase 218 IU/L (35-105); Blood Urea Nitrogen 21 mg/dL (8-23); Calcium 8.4 mg/dL (8.5-10.5); Carbon Dioxide 31 mmol/L (22-29); Chloride 97 mmol/L (98-107); Globulin 2.9 g/dL (1.3-4.6); Glucose 202 mg/dL (65-115); Osmolality Calculated 295 mOsm/kg (285-295); Sodium 138 mmol/L (136-145); Total Bilirubin 1.3 mg/dL (0.15-1.2); Total Protein 5.9 g/dL (6.6-8.7)
[2021-04-22 16:49] LABS: Anion Gap 14.8 (5-19); Potassium 4.8 mmol/L (3.5-5.1)
--- NOTE | 2021-04-22 16:51 | PM.PN ---
Subjective Subjective: Interval history: Patient was seen and examined this morning, patient was complaining of right hip pain, she is stating that she went to the bathroom tripped over a rug and fell on her right hip, she denied chest pain, palpitations or syncopal event Vitals/I&O/Wt Last Vital Signs Temp 98 F 04/22/21 04:48 Pulse 77 04/22/21 11:32 Resp 18 04/22/21 11:32 BP 116/56 04/22/21 11:32 Pulse Ox 100 04/22/21 11:32 Weight last 48 hrs Weight 85.729 kg Weight 85.729 kg Physical Exam Narrative: EXAM NARRATIVE: elderly female who was laying in her bed with distress secondary to hip pain S1, S2 sinus rhythm Saturating well on room air Normotensive Awake alert oriented x3 GCS 15 S1, S2 aortic systolic murmur appreciated Right leg rotated and shortened, limited range of motion, tender No signs of ischemia or gangrene No respiratory distress, no adventitious rhonchi or crackles Right hip area tender, swollen however no active bleeding or petechial bruises Data : 04/22/21 15:37 04/22/21 15:37 A&P Assessment and plan (1) Closed hip fracture: Status: Acute Qualifiers: Encounter type: initial encounter Laterality: right Qualified Code(s): S72.001A - Fracture of unspecified part of neck of right femur, initial encounter for closed fracture (2) Fall: Status: Acute Additional A&P Information Closed right hip fracture Ortho consulted I will let her eat today and make her n.p.o. 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
--- NOTE | 2021-04-22 16:52 | PC.RESP ---
Pulmonary Rehab information sent to patient.
--- NOTE | 2021-04-22 18:09 | P.CONIM_ITS ---
Providers/Reason For Consult Consulting Physician/Specialty*: Ca Silver MD Reason for Consult*: Periprosthetic hip fracture around gamma nail Requesting Physician: Rosalio Alcaraz Attending Physician: Buzz Mason Primary Care Provider: Alvino Kimble MD History of Present Illness History of Present Illness Renee Dhaliwal is a 86 year old female who was in her usual state of health when she fell at the senior living. She denies any reason for the fall other than it was mechanical. The patient recently had operative intervention with Dr. Russell for an open reduction internal fixation of her right hip fracture utilizing a gamma nail. Date of surgery was March 04, 2021. Upon presentation today, the patient was found to have a fracture surrounding the existing hardware. She was admitted to the hospital for definitive treatment. Review of Systems General: Reports: 10 or more systems reviewed and unremarkable except in HPI and below Const: Denies: fever(s), chills, body aches or change in appetite Eyes: Denies: blurry vision, photophobia or eye discomfort ENMT: Denies: throat pain or dental pain Card: Denies: chest pain Resp: Denies: dyspnea GI: Denies: abdominal pain, nausea, vomiting or diarrhea : Denies: dysuria Musc: Reports: extremity pain; Denies: neck pain or back pain Skin/Breast: Denies: rash Neuro: Denies: headache(s) Psych: Denies: depression Ajrvis/Lymph: Denies: easy bruising All/Imm: Denies: urticaria Meds/Allergies Home Medications and Allergies Home Medications Medication Instructions Recorded Confirmed Last Taken Type spironolactone 100 mg PO DAILY@09/14/19 04/22/21 04/21/21 History acetaminophen [Tylenol] 650 mg PO Q6H PRN 12/10/20 04/22/21 Unknown History bisacodyl 10 mg WA DAILY PRN 12/10/20 04/22/21 Unknown History furosemide [Lasix] 80 mg PO BID@12/10/20 04/22/21 04/21/21 History levothyroxine 125 mcg PO DAILY@05 12/10/20 04/22/21 04/21/21 History magnesium hydroxide [Milk of 30 ml PO DAILY PRN 12/10/20 04/22/21 Unknown History Magnesia] propranolol 20 mg PO BID 12/10/20 04/22/21 12/10/20 History Fleet Enema 118 ml WA DAILY PRN 03/04/21 04/22/21 Unknown History Lantus Solostar U-100 Insulin 40 unit SUBCUT DAILY@03/04/21 04/22/21 04/21/21 History albuterol sulfate [ProAir HFA] 2 puff INHALATION Q4H PRN 03/04/21 04/22/21 Unknown History quetiapine [Seroquel] 100 mg PO DAILY@03/04/21 04/22/21 04/21/21 History hydrocodone-acetaminophen 1 tab PO Q4H PRN 7 Days #25 tab 03/07/21 04/22/21 Unknown Rx alprazolam 0.25 mg PO BID@04/22/21 04/22/21 04/21/21 History insulin aspart U-100 [Novolog See Rx Instructions .ROUTE .COMPLEX 04/22/21 04/22/21 04/21/21 History Flexpen U-100 Insulin] lactulose 15 ml PO BID@04/22/21 04/22/21 04/21/21 History lidocaine HCl-menthol [Icy 1 applic TOPICAL BID PRN 04/22/21 04/22/21 Unknown History Hot(lidocaine HCl-menthol)] Allergies Allergy/AdvReac Type Severity Reaction Status Date / Time codeine Allergy Unknown Verified 04/22/21 05:03 morphine Allergy Unknown Verified 04/22/21 05:03 Sulfa (Sulfonamide Allergy Unknown Verified 04/22/21 05:03 Antibiotics) tramadol [From Ultram] Allergy Unknown Verified 04/22/21 08:10 Current Medications Current Medications Generic Name Dose Route Start Last Admin Trade Name Freq PRN Reason Stop Dose Admin Acetaminophen 650 mg 04/22/21 06:30 04/22/21 07:29 Acetaminophen 325 Mg Tablet PO 650 mg Q6H PRN Administration Mild/Mod Pain Or Temp >/= 101 Pantoprazole Sodium 40 mg 04/22/21 09:00 04/22/21 08:59 Pantoprazole 40 Mg Sdv IVP 40 mg DAILY BLAIR Administration PFSH Acute PFSH: Medical History LAVON (acute kidney injury) Cirrhosis of liver normal labs and biopsy. Had esophageal varices. Etiology unclear. Closed hip fracture COPD (chronic obstructive pulmonary disease) CVA (cerebral vascular accident) Diabetes Glaucoma Hypertension Hypothyroid Leukocytosis Lichen planus Pneumonia Thrombocytopenia Surgical History H/O bilateral cataract extraction H/O: section History of carpal tunnel surgery History of cholecystectomy History of hysterectomy Family History Other Unknown family medical history Social History Alcohol intake: never Marital status: / Vitals/I&O/Wt Last Vital Signs Temp 98 F 04/22/21 04:48 Pulse 77 04/22/21 11:32 Resp 18 04/22/21 11:32 BP 116/56 04/22/21 11:32 Pulse Ox 100 04/22/21 11:32 Weight last 48 hrs Weight 189 lb Weight 189 lb Physical Exam Const: COMMON NORMALS: no acute distress, average body habitus, patient oriented x3 and alert GENERAL APPEARANCE: cooperative and comfortable ORIENTATION/CONSCIOUSNESS: Yes awake HENMT: COMMON NORMALS: normocephalic and atraumatic HEAD & SCALP: normocephalic and atraumatic Eye: GENERAL EYE: appearance normal, both eyes and all related structures Chest: COMMONS NORMALS: normal inspection of the chest Resp: COMMON NORMALS: normal respiratory effort EFFORT & INSPECTION: Yes able to speak in complete sentences and Yes symmetric chest movement Extremity: RIGHT LOWER EXTREMITY: Yes hip joint Right hip: Yes inspection (No significant swelling, but the leg is shortened), Yes palpation (Tender), Yes ROM (Not evaluated.) and Yes neurovascular exam (Intact to the foot) Neuro: COMMON NORMALS: patient oriented x3 SENSORIUM/ORIENTATION: Yes alert Psych: COMMON NORMALS: mental status grossly normal APPEARANCE: Yes grossly normal ATTITUDE: Yes calm and Yes engaged ATTENTION/CONCENTRATION: Yes attention grossly intact Skin: COMMON NORMALS: no rashes or lesions noted GENERAL SKIN EXAM: no rashes or lesions noted Data Imaging^: Xray Ortho: I personally reviewed and interpreted this imaging study as follows: My impression: Imaging studies include 2 views of the patient's right hip. Previous imaging studies from April 03 are also reviewed. The patient had a subtrochanteric femur fracture treated with a short gamma nail. The proximal portion of the gamma nail remains essentially in unchanged position, but the patient and her current fall fracture through the distal aspect of fixation. This includes beyond the tip of the nail and extending up to the screw. This fracture is angulated and displaced with second shortening as well. A&P Assessment and plan (1) Fracture of femur following insertion of orthopedic implant, joint prosthesis, or bone plate, right leg: This 86-year-old woman underwent open reduction internal fixation of an intertrochanteric subtrochanteric hip fracture with Dr. Russell on March 04, 2021. Today, well she was at her senior living, she fell suffering the above injury. No further details are known. Patient has periprosthetic fracture which will require removal of her previous intramedullary nail and replacement with a long trochanteric nail. The plan is that this will be scheduled for tomorrow. Status: Acute Consult Attestations Medical Necessity Statement: Patient requires inpatient admission for care of periprosthetic hip fracture Coding Level of Care Code Acute Para Professional for [facility] Fwd Exam Comprehensive Diagnoses Fracture of femur following insertion of orthopedic implant, joint prosthesis, or bone plate, right leg M96.661
[2021-04-22] MEDS: dextrose 5%-sod chloride 0.45% 1,000 ML 30 ML IV (19:28)
[2021-04-22 21:43] LABS: Glucose Point of Care 256 mg/dL (70-110)
[2021-04-23] VITALS (16 sets, daily range): BP systolic 60–133; BP diastolic 42–75; PULSE 79–99; RESP 14–23; TEMP 35.7–37.1; O2SAT 89–100
--- NOTE | 2021-04-23 | SCC_ITS ---
Procedure Done: Open reduction internal fixation right periprosthetic hip fracture with removal of gamma nail and reinsertion of long gamma nail 325.6 seconds of fluoroscopic guidance, for a cumulative dose of 74.06 mGy, was provided to Dr. Silver by the radiology department. C-arm images of the RIGHT femur were saved for the patient's permanent record. [facility]
[2021-04-23] MEDS: levothyroxine 125 mcg Tablet PO (04:26)
[2021-04-23 04:58] LABS: Basophils # 0.1 10^3/uL (0.0-0.1); Basophils % 0.8 %; Eosinophils # 0.2 10^3/uL (0.0-0.8); Eosinophils % 1.5 %; Hematocrit 34.1 % (37.0-47.0); Hemoglobin 10.2 g/dL (11.5-15.3); Lymphocytes # 0.9 10^3/uL (0.8-4.8); Mean Corpuscular HGB Conc 29.9 g/dL (30.0-36.0); Mean Corpuscular Hemoglobin 34.3 pg (28.0-34.0); Mean Corpuscular Volume 114.8 fL (81-99); Mean Platelet Volume 9.1 fL (7.4-10.4); Monocytes # 1.1 10^3/uL (0.2-0.9); Neutrophils # 7.54 10^3/uL (1.8-7.7); Neutrophils % 77.2 %; Nucleated Red Blood Cells % 0 %; Platelet Count 114 10^3/cmm (130-400); Red Blood Count 2.97 10^6/uL (4.1-5.3); Red Cell Distribution Width 14.4 % (12.1-15.1); White Blood Count 9.8 10^3/uL (4.0-10.0)
[2021-04-23 05:23] LABS: Alanine Aminotransferase 17 U/L (0-33); Albumin Level 2.6 g/dL (3.5-5.2); Alkaline Phosphatase 185 IU/L (35-105); Aspartate Amino Transferase 34 U/L (0-32); Blood Urea Nitrogen 23 mg/dL (8-23); Calcium 8.1 mg/dL (8.5-10.5); Carbon Dioxide 26 mmol/L (22-29); Chloride 100 mmol/L (98-107); Globulin 2.8 g/dL (1.3-4.6); Glucose 193 mg/dL (65-115); Osmolality Calculated 291 mOsm/kg (285-295); Sodium 136 mmol/L (136-145); Total Bilirubin 1.1 mg/dL (0.15-1.2); Total Protein 5.4 g/dL (6.6-8.7)
[2021-04-23 05:24] LABS: Anion Gap 14.5 (5-19); Potassium 4.5 mmol/L (3.5-5.1)
--- NOTE | 2021-04-23 05:32 | PC.NURSE ---
Shift Note Frequent safety and comfort rounds continue. Orders and nursing care completed as indicated. Patient monitored for response to intervention and treatment. Education provided includes pain management, safety, activity and movement. Patient verbalized understanding. rested well this shift, denied pain while laying still, verbalized pain when given a bed bath while rolling to left side. log roll utilized. patient npo this sift in prep for surgery. Will continue to monitor.
[2021-04-23 06:54] LABS: Glucose Point of Care 208 mg/dL (70-110)
[2021-04-23] MEDS: pantoprazole 40 mg SDV IVP (08:40)
--- NOTE | 2021-04-23 09:19 | PC.NURSE ---
Pt taken to pre-op
[2021-04-23 09:25] LABS: Glucose Point of Care 235 mg/dL (70-110)
--- NOTE | 2021-04-23 09:45 | ANES.PREANE2 ---
Pre-Anesthetic Assessment Pre-Anesthetic Assessment: Height/Weight: Height 1.52 m Weight 85.729 kg Temp Pulse Resp BP Pulse Ox 97.7 F 98 16 128/57 99 04/23/21 09:31 04/23/21 09:31 04/23/21 09:31 04/23/21 09:31 04/23/21 09:31 Preop Diagnosis: Hip fracture Proposed Procedure: Operation Date: 04/23/21 10:25 Proposed Procedures p ORIF Femur Periprosthetic(Right) - Ca Silver MD Was Beta Gaurang taken within 24 hours: N/A Was Clonidine taken within 24 hours: N/A Last intake: Intake Last Liquid Date 04/22/21 Last Solid Date 04/22/21 Social: Social History: No alcohol and No tobacco Exam: Pre-Anes Outpt Exam: alert and clear to auscultation bilaterally Additional Exam Findings (including area of procedure): Some orientation, but makes comments about people sent to kill her Airway: Submandibular: WNL Cervical ROM: WNL MP: 2 Dentition: Chipped Pulmonary: Pulmonary: COPD CV/HEM: CV/HEM: Afib, Anemia and HTN Comments: Thrombocytopenia (114k) Hepatic: Hepatic: Cirrohsis Metabolic: Metabolic: DM and Thyroid Neuropsych: Neuropsych: CVA Anesthetic Plan: ASA status: 3 Anesthesia: General Risk of > 500 ml blood loss (7ml/kg in children): No Meds/Allergies Current Medications: Current Medications Generic Name Dose Route Start Last Admin Trade Name Freq PRN Reason Stop Dose Admin Acetaminophen 650 mg 04/22/21 06:30 04/22/21 07:29 Acetaminophen 32 5 Mg Tablet PO 650 mg Q6H PRN Administration Mild/Mod Pain Or Temp >/= 101 Furosemide 80 mg 04/23/21 09:00 04/23/21 08:41 Furosemide 40 Mg Tablet PO Not Given DAILY BLAIR Dextrose/Sodium Ch loride 1,000 mls @ 30 ml s/hr 04/22/21 11:00 04/22/21 19:28 Dextrose 5%-Sod Chloride 0.45% IV 30 mls/hr .Q24H BLAIR Administration Insulin Aspart 0 unit 04/22/21 18:00 04/23/21 08:41 Insulin Aspart 1 00 Unit/1 Ml SUBCUT Not Given WM&BEDTIME BLAIR Protocol Levothyroxine Sodi um 125 mcg 04/23/21 05:00 04/23/21 04:26 Levothyroxine 12 5 Mcg Tablet PO 125 mcg DAILY@05 BLAIR Administration Pantoprazole Sodiu m 40 mg 04/22/21 09:00 04/23/21 08:40 Pantoprazole 40 Mg Sdv IVP 40 mg DAILY BLAIR Administration Senna/Docusate Sod ium 1 tab 04/23/21 09:00 04/23/21 08:41 Sennosides-Docus ate Tablet PO Not Given DAILY BLAIR PFSH Anesthesia PFSH: Medical History LAVON (acute kidney injury) Cirrhosis of liver normal labs and biopsy. Had esophageal varices. Etiology unclear. Closed hip fracture COPD (chronic obstructive pulmonary disease) CVA (cerebral vascular accident) Diabetes Glaucoma Hypertension Hypothyroid Leukocytosis Lichen planus Pneumonia Thrombocytopenia Surgical History H/O bilateral cataract extraction H/O: section History of carpal tunnel surgery History of cholecystectomy History of hysterectomy Family History Other Unknown family medical history Social History Alcohol intake: never Marital status: / Data Anesthesia CBC & Chem 7: 04/23/21 04:50 04/23/21 04:50 Other Labs: Laboratory Results - last 48 hr 04/22/21 04/22/21 04/22/21 05:49 15:37 15:37 WBC 10.2 H RBC 3.04 L Hgb 10.8 L Hct 33.7 L MCV 110.9 H MCH 35.5 H MCHC 32.0 RDW 14.5 Plt Count 160 MPV 10.4 Neut % (Auto) 76.8 Lymph % (Auto) 8.5 [place] % (Auto) 12.0 Eos % (Auto) 1.2 Baso % (Auto) 0.9 Neut # (Auto) 7.84 H Lymph # (Auto) 0.9 [place] # (Auto) 1.2 H Eos # (Auto) 0.1 Baso # (Auto) 0.1 Nucleated RBC % (auto) 0 Nucleated RBCs # 0.0 PT 14.60 INR 1.10 Sodium Potassium Chloride Carbon Dioxide Anion Gap BUN Creatinine GFR Calculation Glucose POC Glucose Calculated Osmolality Calcium Total Bilirubin AST ALT Alkaline Phosphatase Total Protein Albumin Globulin Nasal/Oral COVID-19 PCR Not detected 04/22/21 04/22/21 04/23/21 15:37 21:31 04:50 WBC 9.8 RBC 2.97 L Hgb 10.2 L Hct 34.1 L MCV 114.8 H MCH 34.3 H MCHC 29.9 L D RDW 14.4 Plt Count 114 L MPV 9.1 Neut % (Auto) 77.2 Lymph % (Auto) 9.0 [place] % (Auto) 11.0 Eos % (Auto) 1.5 Baso % (Auto) 0.8 Neut # (Auto) 7.54 Lymph # (Auto) 0.9 [place] # (Auto) 1.1 H Eos # (Auto) 0.2 Baso # (Auto) 0.1 Nucleated RBC % (auto) 0 Nucleated RBCs # 0.0 PT INR Sodium 138 Potassium 4.8 Chloride 97 L Carbon Dioxide 31 H Anion Gap 14.8 BUN 21 Creatinine 0.9 GFR Calculation Not Reportable Glucose 202 H POC Glucose 256 H Calculated Osmolality 295 Calcium 8.4 L Total Bilirubin 1.3 H AST > 32 H ALT 20 Alkaline Phosphatase 218 H Total Protein 5.9 L Albumin 3.0 L Globulin 2.9 Nasal/Oral COVID-19 PCR 04/23/21 04/23/21 04/23/21 04:50 06:51 09:23 WBC RBC Hgb Hct MCV MCH MCHC RDW Plt Count MPV Neut % (Auto) Lymph % (Auto) [place] % (Auto) Eos % (Auto) Baso % (Auto) Neut # (Auto) Lymph # (Auto) [place] # (Auto) Eos # (Auto) Baso # (Auto) Nucleated RBC % (auto) Nucleated RBCs # PT INR Sodium 136 Potassium 4.5 Chloride 100 Carbon Dioxide 26 Anion Gap 14.5 BUN 23 Creatinine 0.8 GFR Calculation Not Reportable Glucose 193 H POC Glucose 208 H 235 H Calculated Osmolality 291 Calcium 8.1 L Total Bilirubin 1.1 AST 34 H ALT 17 Alkaline Phosphatase 185 H Total Protein 5.4 L Albumin 2.6 L Globulin 2.8 Nasal/Oral COVID-19 PCR Cardiac Studies: No Data to Display
[2021-04-23] MEDS: sodium chloride 0.9% 1,000 ML 30 ML IV (09:57)
--- NOTE | 2021-04-23 11:07 | W.PM.OPSUD ---
Surgery/Procedure H&P Update DATE OF PROCEDURE: April 23, 2021 DATE H&P PERFORMED: 04/23/21 H&P UPDATE INFORMATION: I have reviewed H&P completed within last 30 days, I have examined patient prior to procedure, No changes to prior documentation and H&P to be scanned into chart PREOP DIAGNOSIS: Hip fracture right periprosthetic PLANNED PROCEDURE: Operation Date: 04/23/21 10:25 Proposed Procedures p ORIF Femur Periprosthetic(Right) - Ca Silver MD Related Problem List Diagnoses (1) Fracture of femur following insertion of orthopedic implant, joint prosthesis, or bone plate, right leg:
[2021-04-23] MEDS: vancomycin 1,000 MG in sodium chloride 0.9% 250 ML 250 MG IV (11:49)
[2021-04-23] MEDS: tranexamic acid 1,000 mg/10mL SDV 1000 MG (13:16)
[2021-04-23] MEDS: ceFAZolin 1,000 mg SDV 1000 MG (13:16)
--- NOTE | 2021-04-23 14:00 | P.PN_ITS ---
Subjective Subjective: Interval history: Patient to go for surgical intervention today open reduction internal fixation right periprosthesis fracture Vitals/I&O/Wt Last Vital Signs Temp 97.7 F 04/23/21 09:31 Pulse 98 04/23/21 09:31 Resp 16 04/23/21 09:31 BP 128/57 04/23/21 09:31 Pulse Ox 99 04/23/21 09:31 04/22/21 04/23/21 04/23/21 22:59 06:59 14:59 Intake Total 0 / 0 360 / 360 250 / 250 Output Total 400 / 400 Balance 0 / 0 -40 / -40 250 / 250 Weight last 48 hrs Weight 85.729 kg Weight 85.729 kg Physical Exam Narrative: EXAM NARRATIVE: elderly female Saturating well on 2 L nasal cannula Normotensive Awake alert oriented x3 GCS 15 S1, S2 aortic systolic murmur appreciated Right leg rotated and shortened, limited range of motion, tender range of motion No signs of ischemia or gangrene of lower extremity No respiratory distress, no adventitious rhonchi or crackles Right hip area tender, swollen however no active bleeding or petechial bruises Urinary Catheter Management^: Jay: Cath Placed During This Visit: yes Urinary Catheter Date of Insertion: 04/23/21 Urinary Catheter Time of Insertion: 12:50 Data : 04/23/21 04:50 04/23/21 04:50 A&P Assessment and plan (1) Fracture of femur following insertion of orthopedic implant, joint prosthesis, or bone plate, right leg: Status: Acute (2) Fall: Status: Acute (3) COPD (chronic obstructive pulmonary disease): Status: Acute (4) Diabetes: Status: Acute Additional A&P Information Periprosthesis hip fracture/right-sided Patient to go for surgical intervention, Dr. Silver planning for open reduction internal fixation Start anticoagulation after procedure Diet to be resumed Adequate analgesia with bowel regimen To prevent hypoventilation keep incentive spirometry DuoNeb treatment Full code Advance diet after surgery DVT prophylaxis: Lovenox 6 to 8 hours of surgery Patient is from [facility] Attestations Medical Necessity Statement*: Anticipating discharge back to [facility] once stable Time Spent in Patient Care: less than 15 minutes Coding Level of Care Code Acute Residential Builder for [facility] Diagnoses Fracture of femur following insertion of orthopedic implant, joint prosthesis, or bone plate, right leg M96.661 Fall W19.XXXA COPD (chronic obstructive pulmonary disease) J44.9 Diabetes E11.9
--- NOTE | 2021-04-23 15:06 | XR_ITS ---
WS: [id number] INTRAOPERATIVE TECHNIQUE: 6 Spot fluoroscopic images for intraoperative purposes. FLUOROSCOPY TIME: 325.6 seconds CLINICAL INFORMATION: OR PICS COMPARISON: None. FINDINGS: Intramedullary gabriela and screw fixation right hip and right femur. Hardware appears in good position. XR/XR femur RT min 2V* [id number] IMPRESSION: Images obtained for intraoperative purposes.
--- NOTE | 2021-04-23 15:33 | SUR.PHASEI ---
patient into pacu. pt drowsy, disoriented but near baseline. dressings to right hip dry and intact x3 sites. patient on room air with sats at 96%. toes to right foot pink, warm.
--- NOTE | 2021-04-23 15:41 | P.OP_ITS ---
Operative Report Date of procedure: April 23, 2021 Pre-op Diagnosis: Hip fracture right periprosthetic Post-op diagnosis: same Post-op Findings: Complex periprosthetic hip fracture around a gamma nail Procedure Done: Open reduction internal fixation right periprosthetic hip fracture with removal of gamma nail and reinsertion of long gamma nail Implants: Gamma 3 trochanteric nail system with a size 13 mm x 340 mm x 125 degree long right nail, a 10.5 mm x 90 mm proximal lag screw and a 5 mm x 37.5 mm distal locking screw Specimens removed/disposition: None Pathology: none sent Surgeon: Ca Silver Personnel Administrator: [facility] operating room technicians Anesthesia: General (Intubated, ASA 3) Estimated blood loss (mL): 600 IV fluids (mL): 1,500 IV fluids: 1000 mL of crystalloid +500 mL of albumin Urine output (mL): 500 Complications: None Findings: Complex comminuted periprosthetic right proximal femur fracture around previous short gamma nail Condition: stable Disposition: PACU (Then return to floor for postoperative rehabilitation and pain management) Brief History: Renee Dhaliwal is a 86 year old female who was in her usual state of health when she fell at the skilled nursing. She denies any reason for the fall other than it was mechanical. The patient recently had operative intervention with Dr. Russell for an open reduction internal fixation of her right hip fracture utilizing a gamma nail. Date of surgery was March 04, 2021. Upon presentation today, the patient was found to have a fracture surrounding the existing hardware. She was admitted to the hospital for definitive treatment. Since were signed preoperatively, and the patient was scheduled for the above procedure. Procedure: Patient is brought to the operating theater. After undergoing adequate general anesthesia with intubation, ASA 3, the patient was transferred to the fracture table, positioned on the table and fluoroscopic guidance obtained throughout the surgical procedure. Prior to the commencement of the surgical procedure, a surgical pause was performed. At the time of the surgical pause, we confirmed the site and side of surgery as well as preoperative surgical markings and appropriate and timely administration of IV antibiotics, vancomycin 1 g. Availability of equipment was also confirmed. Fluoroscopy was used to confirm the fracture was appropriately reduced in both AP and lateral planes. Prior to prepping and draping, the patient's previous incisions were marked. The leg was then prepped and draped with a shower curtain drape. Care was taken to assure enough distal access to the distal femur for placement of the distal femoral locking screw. The patient's previous proximal incision was then entered. There was significant subcutaneous tissue, and this required a larger incision and we did extend the patient's previous incision. Once we were able to palpate the nail. The setscrew was backed out so that we could remove the lag screw into the femoral head. Once the set screw was backed out of position, we then addressed attention to the lag screw. The previous incision for placement of the lag screw was entered. We were able to pass a guidewire with some difficulty secondary to the size of the patient and the significant subcutaneous tissue into the previous lag screw. Once this guidewire was in position, we were able to place the transport tank technician for the lag screw onto the previous lag screw and we were able to remove it. Once this was removed, attention was directed to placing proximal access to the nail so that we could subsequently remove it. We did not want to remove the distal screw until we had something attached proximally secondary to rotation of the nail. We did attempt to place the insertion arm after we were unable to use the standard extractor device. Wi th the fracture, however, the distal anatomy was abnormal and the arm did not help us in removal of the screw. Once again, incision was extended to allow access to the screw. We were then able to remove the screw with a needle smith as the fracture had dislodged from being any form of fixation. Once the distal screw was removed we were able to remove the short gamma nail. The setscrew was then removed from it. The nail was reinserted to be used as a joystick for reduction of the fracture. We then passed the ball-tipped guidewire from proximal to distal. Position of the guidewire was confirmed in AP and lateral planes. We were distal into the area of the knee. Appropriate length was measured for the long gamma nail. The length chosen was a size 340 mm. It was felt that 360 mm would be too far into the knee joint for appropriate placement. Following the ball-tipped guidewire being in appropriate position, the short gamma nail was removed uneventfully over the guidewire. We then reamed. When we were at a size 13 reamer, we had very little cortical chatter. Therefore, we did ream to a size 15 to allow placement of a size 13 gamma 3 trochanteric nail. The size chosen therefore was 340 mm with a 13 mm diameter. This was passed over the guidewire uneventfully. It was noted to be quite tight in the isthmus of the bone. Appropriate position was confirmed in AP and lateral planes on x-ray both proximally and distally. Guidewire was then passed through the jigging system into the femoral head. We wanted to be center or slightly inferior and posterior to center. Guidewire was placed into appropriate position. Care was taken to place it as distal as possible to avoid the more proximal placement of the previous lag screw in hopes of getting good purchase in the femoral head. This was able to be accomplished. Once the guidewire was in appropriate position and this position was confirmed by x-ray, we measured and we chose a 90 mm lag screw. We reamed to allow for the lag screw to be placed. The 90 mm lag screw was then passed into the femoral head through the trochanteric nail. This was passed uneventfully and again position was confirmed in AP and lateral planes. The set screw was then placed in position, tightened completely, and subsequently backed off one- quarter turn. The construct was left in position and attention was directed distally. A perfect beaver technique was used distally to determine appropriate angle and placement of the distal screw. This was placed in position without difficulty. Appropriate length was measured with a depth gauge. The appropriate length screw was then obtained and placed in position without difficulty. Once the screw was in position, we confirmed appropriate placement of the components, obtained fluoroscopic imaging proximally and distally in AP and lateral planes. Attention was then directed to closure. The hip was copiously irrigated with normal saline with antibiotics. Following this it was dried and closed. Tensor fascia alberto was closed proximally with 0 Vicryl in an interrupted fashion with 2 layers deep at the hip area followed by a single an interrupted running 0 Vicryl followed by 2-0 Monocryl in a fourth layer. The skin was closed with skin larry. Incisions were then covered with OpSite. The patient was removed from the fracture table and returned to recovery in satisfactory condition. The patient will be discharged to the floor for postoperative rehabilitation and pain management. There were no specimens obtained. Associated Problem List Diagnoses (1) Fracture of femur following insertion of orthopedic implant, joint prosthesis, or bone plate, right leg:
--- NOTE | 2021-04-23 15:41 | SUR.PHASEI ---
xray at bedside.
--- NOTE | 2021-04-23 15:59 | SUR.PHASEI ---
1550: report called to floor. Patient pulled IV out of left wrist. iv not replaced, pt has patent iv in right forearm with NS currently infusing. 1559: patient taken to floor. dressing to right hip dry and intact. patient at baseline orientation. pt on 2L NC with sats at 96%
--- NOTE | 2021-04-23 16:02 | ANE.PACU2 ---
Inpatient post-anesthesia follow up: Airway intact: Yes Vital signs: Temperature 97.8 F Pulse Rate [Left] 78 Pulse Rate 99 Respiratory Rate 17 Blood Pressure [Le ft Arm] 99/53 Blood Pressure 106/49 Pulse Oximetry 96 Oxygen Delivery Me thod Nasal Cannula Oxygen Flow Rate 2 Fraction of Inspir ed Oxygen Hydration adequate: Yes Nausea and vomiting: No Pain level: 2 Mental status: Baseline
[2021-04-23 16:47] LABS: Glucose Point of Care 252 mg/dL (70-110)
[2021-04-23] MEDS: acetaminophen 1,000 MG/100 ML PIGGYBACK 400 MG IV (17:13)
[2021-04-23] MEDS: oxyCODONE 5 mg IR Tab/Cap PO (17:13)
--- NOTE | 2021-04-23 18:27 | PC.PT ---
Patient unavailable, still not in room post surgery at 1600; will reattempt tomorrow
[2021-04-23 20:27] LABS: Glucose Point of Care 291 mg/dL (70-110)
[2021-04-24] VITALS (14 sets, daily range): BP systolic 90–123; BP diastolic 44–68; PULSE 97–119; RESP 12–18; TEMP 36.3–36.9; O2SAT 96–100
[2021-04-24] MEDS: acetaminophen 1,000 MG/100 ML PIGGYBACK 400 MG IV (00:21)
[2021-04-24 04:00] LABS: Basophils # 0.1 10^3/uL (0.0-0.1); Basophils % 0.5 %; Eosinophils % 0.2 %; Hematocrit 22.5 % (37.0-47.0); Hemoglobin 6.9 g/dL (11.5-15.3); Lymphocytes % 8.4 %; Mean Corpuscular HGB Conc 30.7 g/dL (30.0-36.0); Mean Corpuscular Hemoglobin 33.8 pg (28.0-34.0); Mean Corpuscular Volume 110.3 fL (81-99); Monocytes # 1.6 10^3/uL (0.2-0.9); Monocytes % 12.7 %; Neutrophils # 9.66 10^3/uL (1.8-7.7); Neutrophils % 77.6 %; Nucleated Red Blood Cells % 0 %; Platelet Count 123 10^3/cmm (130-400); Red Blood Count 2.04 10^6/uL (4.1-5.3); Red Cell Distribution Width 14.5 % (12.1-15.1); White Blood Count 12.4 10^3/uL (4.0-10.0)
[2021-04-24 04:16] LABS: Anion Gap 12.8 (5-19); Blood Urea Nitrogen 30 mg/dL (8-23); Calcium 7.6 mg/dL (8.5-10.5); Carbon Dioxide 29 mmol/L (22-29); Chloride 100 mmol/L (98-107); Glucose 231 mg/dL (65-115); Osmolality Calculated 298 mOsm/kg (285-295); Potassium 4.8 mmol/L (3.5-5.1); Sodium 137 mmol/L (136-145)
[2021-04-24 07:50] LABS: Glucose Point of Care 226 mg/dL (70-110)
[2021-04-24] MEDS: FUROsemide 40 mg Tablet 80 MG PO (09:05)
[2021-04-24] MEDS: aspirin 325 mg EC Tablet PO (09:05)
[2021-04-24] MEDS: sodium chloride 0.9% (100 ml) 100 ML 50 ML (09:05)
[2021-04-24] MEDS: sennosides-docusate Tablet 1 TAB PO (09:06)
--- NOTE | 2021-04-24 09:15 | PC.OT ---
Occupational therapy held - Patient reports she does not feel up to participating today, HGB is low.
[2021-04-24 11:06] LABS: Glucose Point of Care 298 mg/dL (70-110)
--- NOTE | 2021-04-24 11:57 | P.PN_ITS ---
Subjective Subjective: Interval history: Blood transfusion was started this morning hemoglobin 6.9 Patient was seen and examined, she was very paranoid today and was asking if I am her truthful doctor She is afraid that someone will in the hospital She ripped her IV line from which blood was being transfused, Daughter requested Seroquel and Ativan to be resumed Vitals/I&O/Wt Last Vital Signs Temp 98.0 F 04/24/21 11:28 Pulse 118 H 04/24/21 11:28 Resp 14 04/24/21 11:28 BP 119/64 04/24/21 11:28 Pulse Ox 100 04/24/21 11:28 04/23/21 04/24/21 04/24/21 22:59 06:59 14:59 Intake Total 2200 / 2450 1100 / 3550 100 / 100 Output Total 1600 / 1600 100 / 1700 Balance 600 / 850 1000 / 1850 100 / 100 Weight last 48 hrs Weight 85.729 kg Physical Exam Narrative: EXAM NARRATIVE: Patient was laying comfortably in her bed when entered the room However during my interview she expressed her concerns which revolved around paranoia Hemodynamically stable Her right leg dressing is soaked with blood However do not appreciate any worsening of swelling or hematoma No vascular compromise of right leg, right leg is not angulated or short as compared to yesterday S1, S2 with systolic murmur No active signs of heart failure Bilateral breath sounds without adventitious rhonchi or crackles Saturating well on 2 L nasal cannula Urinary Catheter Management^: Jay: Cath Placed During This Visit: yes Reason for Continuing Indwelling Catheter: Perioperative Use in Selected Surgeries Urinary Catheter Date of Insertion: 04/23/21 Urinary Catheter Time of Insertion: 12:50 Data : 04/24/21 03:03 04/24/21 03:03 A&P Assessment and plan (1) Fracture of femur following insertion of orthopedic implant, joint prosthesis, or bone plate, right leg: Status: Acute (2) Fall: Status: Acute (3) COPD (chronic obstructive pulmonary disease): Status: Acute (4) Diabetes: Status: Acute Additional A&P Information Open reduction internal fixation right 30 prosthetic hip fracture with reinsertion of long gamma nail Postop day 1 Afebrile Encourage incentive spirometry Patient is showing signs of paranoia today, restart Seroquel and Ativan No strokelike symptoms Acute blood loss anemia Estimated blood loss reported during surgery 600 mL Postoperative anemia, requested PRBC, started iron and bowel regimen Orthopedic started her on full dose aspirin No acute hematoma noticed of right leg however dressing is soaked with blood No vascular compromise or hemodynamic instability May consider CT leg in case of worsening of anemia Paranoia Will monitor on Seroquel and Ativan for now She is not hypoxic has stayed afebrile Check bladder scan for urine retention LAVNO Creatinine 1.3 will do bladder scan to rule out urine retention, will request UA Cardiac consistent carb diet PT evaluation, return to snf once stable Full code Attestations Medical Necessity Statement*: Anticipating return to snf once she is stable Time Spent in Patient Care: less than 15 minutes Coding Level of Care Code Acute Risk Control Product Liability Director for Jani Kumar Diagnoses Fracture of femur following insertion of orthopedic implant, joint prosthesis, or bone plate, right leg M96.661 Fall W19.XXXA COPD (chronic obstructive pulmonary disease) J44.9 Diabetes E11.9
--- NOTE | 2021-04-24 13:15 | P.PN_ITS ---
Subjective Subjective: Interval history: Blood transfusion was started this morning hemoglobin 6.9. She ripped her IV line from which blood was being transfused. Daughter requested Seroquel and Ativan to be resumed. She is seen today with her daughter in the room. Vitals/I&O/Wt Last Vital Signs Temp 98.0 F 04/24/21 11:28 Pulse 118 H 04/24/21 11:28 Resp 14 04/24/21 11:28 BP 119/64 04/24/21 11:28 Pulse Ox 100 04/24/21 11:28 04/23/21 04/24/21 04/24/21 22:59 06:59 14:59 Intake Total 2200 / 2450 1100 / 3550 100 / 100 Output Total 1600 / 1600 100 / 1700 Balance 600 / 850 1000 / 1850 100 / 100 Physical Exam Const: COMMON NORMALS: no acute distress, average body habitus, patient oriented x3 and alert GENERAL APPEARANCE: cooperative and comfortable ORIENTATION/CONSCIOUSNESS: Yes awake HENMT: COMMON NORMALS: normocephalic and atraumatic HEAD & SCALP: normocephalic and atraumatic Eye: GENERAL EYE: appearance normal, both eyes and all related structures Chest: COMMONS NORMALS: normal inspection of the chest Resp: COMMON NORMALS: normal respiratory effort EFFORT & INSPECTION: Yes able to speak in complete sentences and Yes symmetric chest movement Extremity: RIGHT LOWER EXTREMITY: Yes hip joint (There is some serosanguineous fluid in the dressing. Dressing is removed.) Right hip: Yes inspection (Expected swelling in the thigh.), Yes palpation (Minimal tenderness, able to lift the leg.), Yes ROM (Not evaluated.) and Yes neurovascular exam (Appears intact distally with no sign of DVT.) Neuro: COMMON NORMALS: patient oriented x3 SENSORIUM/ORIENTATION: Yes alert Psych: COMMON NORMALS: mental status grossly normal APPEARANCE: Yes grossly normal ATTITUDE: Yes calm and Yes engaged ATTENTION/CONCENTRATION: Yes attention grossly intact Skin: COMMON NORMALS: no rashes or lesions noted GENERAL SKIN EXAM: no rashes or lesions noted Urinary Catheter Management^: Jay: Cath Placed During This Visit: yes Reason for Continuing Indwelling Catheter: Perioperative Use in Selected Surgeries Urinary Catheter Date of Insertion: 04/23/21 Urinary Catheter Time of Insertion: 12:50 Data : 04/24/21 03:03 04/24/21 03:03 A&P Assessment and plan (1) Fracture of femur following insertion of orthopedic implant, joint prosthesis, or bone plate, right leg: This 86-year-old woman underwent open reduction internal fixation of an intertrochanteric subtrochanteric hip fracture with Dr. Russell on March 04, 2021. Today, well she was at her care home, she fell suffering the above injury. No further details are known. Patient has periprosthetic fracture which will require removal of her previous intramedullary nail and replacement with a long trochanteric nail. The patient had her surgery yesterday evening, and it was uneventful. Today, H&H has decreased, and she is receiving 1 unit of packed red blood cells. She is also having issues with sundowning , and she has also exhibited some signs of paranoia. Her daughter is with her in the room. We will continue to treat her medical issues with hopes of returning her to her normal residence at [facility]. Status: Acute Attestations Medical Necessity Statement*: Patient will require inpatient hospitalization for postoperative treatment of periprosthetic hip fracture and surrounding sundowner type symptoms. Coding Level of Care Code Acute Carry All Driver for Jani Kumar Diagnoses Fracture of femur following insertion of orthopedic implant, joint prosthesis, or bone plate, right leg M96.661
[2021-04-24] MEDS: HYDROmorphone 1 mg/mL INJ 1 mL IVP (15:16)
[2021-04-24] MEDS: pantoprazole 40 mg SDV IVP (15:16)
[2021-04-24] MEDS: vancomycin 1,000 MG in sodium chloride 0.9% 250 ML 250 MG IV (15:28)
[2021-04-24] MEDS: ondansetron 2 mg/ML SDV 2 mL 4 MG IVP (15:45)
[2021-04-24 17:15] LABS: Glucose Point of Care 279 mg/dL (70-110)
[2021-04-24 17:31] LABS: Hemoglobin 7.8 g/dL (11.5-15.3)
[2021-04-24] MEDS: acetaminophen 500 mg Tablet 1000 MG PO ×2 (17:34→23:33)
[2021-04-24 20:47] LABS: Glucose Point of Care 319 mg/dL (70-110)
[2021-04-24] MEDS: quetiapine 100 mg Tablet PO (20:51)
[2021-04-24] MEDS: docusate sodium 100 mg Capsule PO (20:51)
[2021-04-24] MEDS: ALPRAZolam 0.5 mg Tablet 0.25 MG PO (20:51)
[2021-04-25] VITALS (13 sets, daily range): BP systolic 90–119; BP diastolic 46–66; PULSE 97–120; RESP 16–20; TEMP 36.6–37; O2SAT 96–99
[2021-04-25 02:33] LABS: Add Urine Microscopic? YES; Bilirubin Urine 1+ (Negative); Blood Urine 3+ (Negative); Glucose Urine UA Norm (Normal); Ketones Urine Negative (Negative); Leukocyte Esterase Urine 1+ (Negative); Nitrate Urine Negative (Negative); Protein Urine Trace (Negative); Urine Appearance SL Hazy (CLEAR); Urine Color Yellow (Yellow); Urobilinogen Urine 1 mg/dL (Negative); pH Urine 5 (5-7)
[2021-04-25 02:34] LABS: Add Urine Culture? Yes; Amorphous Sediment Urine 2+ /hpf; Bacteria Urine TRACE /hpf; RBC Urine 0-4 /hpf (0-2); Squamous Epithelial Cell Urine 0-4 /hpf (0-5); WBC Urine 55-80 /hpf (0-5)
[2021-04-25 03:36] LABS: Basophils % 0.4 %; Eosinophils % 0.4 %; Hematocrit 21.1 % (37.0-47.0); Hemoglobin 6.7 g/dL (11.5-15.3); Lymphocytes # 0.7 10^3/uL (0.8-4.8); Lymphocytes % 13.1 %; Mean Corpuscular HGB Conc 31.8 g/dL (30.0-36.0); Mean Corpuscular Hemoglobin 33.7 pg (28.0-34.0); Mean Platelet Volume 9.6 fL (7.4-10.4); Neutrophils # 3.83 10^3/uL (1.8-7.7); Neutrophils % 67.5 %; Nucleated Red Blood Cells % 0 %; Platelet Count 59 10^3/cmm (130-400); Red Blood Count 1.99 10^6/uL (4.1-5.3); Red Cell Distribution Width 17.5 % (12.1-15.1); White Blood Count 5.7 10^3/uL (4.0-10.0)
[2021-04-25 03:57] LABS: Anion Gap 13.6 (5-19); Blood Urea Nitrogen 44 mg/dL (8-23); Calcium 7.4 mg/dL (8.5-10.5); Carbon Dioxide 28 mmol/L (22-29); Chloride 99 mmol/L (98-107); Glucose 245 mg/dL (65-115); Osmolality Calculated 301 mOsm/kg (285-295); Potassium 4.6 mmol/L (3.5-5.1); Sodium 136 mmol/L (136-145)
[2021-04-25] MEDS: levothyroxine 125 mcg Tablet PO (05:02)
--- NOTE | 2021-04-25 05:35 | PC.NURSE ---
Shift Note Frequent safety and comfort rounds continue. Orders and/or nursing care completed as indicated. Patient monitored for response to intervention and treatment(s). Education provided includes medication, positioning, pain, oral intake,. Patient verbalized understanding, patient more alert this shift, not angry, cooperative, took all meds without resistance, used applesauce to assist patient with swallowing meds. confused about current situation, dressing to right hip changed due to serosangeuoneous drainage. larry intact, surgical site approximated. hgb low this morning, 6.7, call placed to Dr. Wolff and order received to transfuse 1 unit of RBC, Will continue to monitor.
[2021-04-25 06:28] LABS: Glucose Point of Care 286 mg/dL (70-110)
[2021-04-25] MEDS: ALPRAZolam 0.5 mg Tablet 0.25 MG PO ×2 (06:33→19:42)
[2021-04-25] MEDS: sodium chloride 0.9% (100 ml) 100 ML 50 ML (08:00)
[2021-04-25] MEDS: aspirin 325 mg EC Tablet PO (08:01)
[2021-04-25] MEDS: sennosides-docusate Tablet 1 TAB PO (08:01)
[2021-04-25] MEDS: iron complex forte Capsule 1 EACH PO ×2 (08:01→17:56)
[2021-04-25] MEDS: acetaminophen 500 mg Tablet 1000 MG PO ×3 (08:01→23:32)
--- NOTE | 2021-04-25 08:14 | CT_ITS ---
WS: [id number] CT ABDOMEN PELVIS TECHNIQUE: Noncontrast CT of the abdomen and pelvis with coronal and sagittal reformatted images. CLINICAL INFORMATION: oliguria COMPARISON: CT 1 DLP: 1232.[address] scans at [facility] use at least one of these dose optimization techniques: automat ed exposure control; mA and/or kV adjustment per patient size (includes targeted exams where dose is matched to clinical indication); or iterative reconstruction. FINDINGS: Cholecystectomy. Hysterectomy. Small bilateral pleural effusions with compressive atelectas is in the lung bases. Cirrhotic configuration of the liver. Perihepatic and perisplenic ascites. Smal l amount of ascites in the pelvis. Diffuse body wall anasarca. Mild splenomegaly. Small esophageal hi atal hernia. Adrenal glands are normal. Mild fatty atrophy of the pancreas. Prominent common bile duct likely physiologic postcholecystectom y. Adrenal glands are normal. No hydronephrosis in either kidney. Small left renal cyst. Mild renal c ortical atrophy. No hydronephrosis. No evidence of renal obstruction. Jay catheter. Lumbar scoliosis. Prior postoperative changes intramedullary gabriela and screw fixation right hip. Subcutaneous emphysema overlying the right buttocks and anterior right hip. This is presumably due to recent surgery. Compression fracture of the T12 vertebral body likely chronic and is new from 2018 CT. Mild retropuls ion posterior superior cortex with moderate central canal stenosis. Loss of approximately 40-50% vert ebral body height with fracture cleft in the superior endplate. CT/CT abdomen pelvis wo con [id number] IMPRESSION: 1. Recent postoperative changes intramedullary gabriela and screw fixation right hi p with subcutaneous emphysema in the right buttock and hip soft tissues. 2. Cirrhotic liver with mild splenomegaly. 3. Mild perihepatic and perisplenic ascites. 4. Small bilateral pleural effusions compressive atelectasis in the lung bases . 5. Small left renal cyst. No hydronephrosis in either kidney. No evidence of r enal obstruction. 6. Jay catheter. 7. Sigmoid diverticulosis. 8. Small amount of ascites in the pelvis. 9. T12 compression fracture described above with mild retropulsion and moderat e central canal stenosis..
--- NOTE | 2021-04-25 08:15 | CT_ITS ---
WS: [id number] NONCONTRAST CT OF THE RIGHT FEMUR WITHOUT CONTRAST TECHNIQUE: Noncontrast CT of the right femur with coronal and sagittal reformatted images. CLINICAL INFORMATION: hematoma COMPARISON: None. DLP: 2493.[address] scans at [facility] use at least one of these dose optimization techniques: automat ed exposure control; mA and/or kV adjustment per patient size (includes targeted exams where dose is matched to clinical indication); or iterative reconstruction. FINDINGS: Recent postoperative changes intramedullary gabriela and screw fixation right hip with femoral gabriela extendi ng into the distal femur. Distal screw fixation of the intramedullary gabriela. Hardware appears in good p osition. Fracture has been reduced with near anatomic alignment of the comminuted femoral shaft fract ure. Distal femoral shaft is intact. Associated soft tissue edema with small joint effusion and soft tissue and intramuscular hematoma from recent trauma. Subcutaneous emphysema in the soft tissues in t he area of surgery. Prior fixated intratrochanteric and subtrochanteric fractures demonstrate callus formation. Small suprapatellar knee effusion. Diffuse body wall anasarca. CT/CT femur RT wo con* [id number] IMPRESSION: 1. Normal postoperative intramedullary gabriela and screw fixation right femur with expected postoperative changes. 2. Hardware appears in good position. Fracture has been reduced with near norm al anatomic alignment.
--- NOTE | 2021-04-25 09:07 | PM.PN ---
Subjective Subjective: Interval history: Hemoglobin 6.7, requested second unit of PRBC Abnormal UA started ceftriaxone Blood pressure 95/50 mmHg, will give her 1 amp of albumin Started midodrine Today patient stated: My mind is telling me that I am going to but I feel otherwise . She is denying chest pain, shortness of breath, nausea, vomiting endorsing right hip pain Her dressing is soaked with blood I have requested CT abdomen pelvis because of worsening creatinine, Jay catheter draining concentrated urine, added CT pelvis to rule out hematoma No bowel movement yet Vitals/I&O/Wt Last Vital Signs Temp 97.9 F 04/25/21 08:32 Pulse 104 H 04/25/21 08:32 Resp 18 04/25/21 08:32 BP 99/50 04/25/21 08:32 Pulse Ox 99 04/25/21 08:32 04/24/21 04/25/21 04/25/21 22:59 06:59 14:59 Intake Total 600 / 700 30 / 730 120 / 120 Output Total 250 / 250 100 / 350 Balance 350 / 450 -70 / 380 120 / 120 Physical Exam Narrative: EXAM NARRATIVE: Patient was in semi-Macias position when entered the room PT in the room Patient was pleasant and cooperative during my evaluation however still exhibiting paranoid behavior S1, S2 aortic systolic murmur seems louder than yesterday Bilateral lower extremity edema, pedal edema 2+ Surgical site dressing seemed soaked with blood No vascular compromise of lower extremities EOMI, PERRLA No neurological deficits noted No audible stridor or wheezing Saturating well on 2 L nasal cannula Hyperactive bowel sounds noted Urinary Catheter Management^: Jay: Cath Placed During This Visit: yes Reason for Continuing Indwelling Catheter: Acute Urinary Retention or Obstruction Urinary Catheter Date of Insertion: 04/23/21 Urinary Catheter Time of Insertion: 12:50 Data : 04/25/21 03:14 04/25/21 03:14 A&P Assessment and plan (1) Fracture of femur following insertion of orthopedic implant, joint prosthesis, or bone plate, right leg: Status: Acute (2) Acute blood loss anemia: Status: Acute (3) LAVON (acute kidney injury): Status: Acute (4) UTI (urinary tract infection): Status: Acute (5) Delusional disorder: Status: Acute Additional A&P Information Periprosthetic hip fracture status post open reduction internal fixation Postop day 2 She has been afebrile, noticed low urine output, worsening creatinine and UTI Dressing soaked with blood She is getting her second unit of PRBC Hypotension related to third spacing and active anemia We will give her albumin and secondary PRBC Iron started yesterday She is not septic at this point Added midodrine Continue IV Protonix Repeat TSH random cortisol level She has aortic stenosis moderate, would like to keep her hemoglobin above 8 UTI Abnormal UA which would explain her acute paranoid/delusional disorder started ceftriaxone Requested urine culture Jay catheter draining concentrated urine No post void urinary retention Worsening LAVON Likely secondary to hypotension She has not received any contrast Rule out pyelonephritis secondary to significant pyuria requested CT abdomen pelvis without contrast Paranoid behavior/delusional Started Seroquel and benzodiazepine twice daily home regimen Diet: Pur?ed thickened as per speech evaluation Hypothyroidism: Continue levothyroxine 25 mcg Type 2 diabetes: Currently on sliding scale Full code Disposition back to [facility] once stable Attestations Medical Necessity Statement*: Anemia, worsening LAVON, continue med management Time Spent in Patient Care: 16 - 35 minutes Coding Level of Care Code Acute Load Checker for Estelitag Fwd Diagnoses Fracture of femur following insertion of orthopedic implant, joint prosthesis, or bone plate, right leg M96.661 Acute blood loss anemia D62 LAVON (acute kidney injury) N17.9 UTI (urinary tract infection) N39.0 Delusional disorder F22
[2021-04-25 09:53] LABS: Cortisol Random 17.04 ug/dL (2.47-19.5); Thyroid Stimulating Hormone 7.82 uIU/mL (0.27-4.20)
[2021-04-25 10:15] LABS: Glucose Point of Care 330 mg/dL (70-110)
--- NOTE | 2021-04-25 11:57 | PC.SOCIAL ---
IMM Update IMM updated with patient. Verbalized an understanding. Copy Pg. 2 provided. Initialed, dated, timed, and placed in chart.
[2021-04-25] MEDS: cefTRIAXone 1,000 MG in sodium chloride 0.9% (plus) 50 ML 100 MG IV (12:27)
[2021-04-25] MEDS: midodrine 5 mg TABLET 10 MG PO ×3 (12:27→19:43)
[2021-04-25] MEDS: pantoprazole 40 mg SDV IVP (12:28)
[2021-04-25] MEDS: albumin 12.5 GM/250 ML VIAL IV (12:28)
[2021-04-25 12:51] LABS: Glucose Point of Care 340 mg/dL (70-110)
--- NOTE | 2021-04-25 12:52 | PC.SOCIAL ---
IMM update pg 2 of IMM updated and reviewed w/ son Gwyn via telephone.
--- NOTE | 2021-04-25 15:47 | P.PN_ITS ---
Subjective Subjective: Interval history: Today patient stated: My mind is telling me that I am going to but I feel otherwise . She is denying chest pain, shortness of breath, nausea, vomiting endorsing right hip pain. Her dressing is soaked with blood. Dr. Platt has requested CT abdomen pelvis because of worsening creatinine, Jay catheter draining concentrated urine, added CT pelvis to rule out hematoma. No bowel movement yet. Orthopedically, the patient is seen with her daughter in the room. Currently, she is having far more medical issues and issues related to this fracture aside from decreased H&H for which she has received a second unit of packed red blood cells. The daughter understands this. Additionally, I have discussion with the daughter regarding weightbearing status. We will attempt to have her be touchdown weightbearing, however, I am doubtful she will be able to maintain this and will likely have to be limited weightbearing as tolerated. Vitals/I&O/Wt Last Vital Signs Temp 98.2 F 04/25/21 12:20 Pulse 97 04/25/21 12:20 Resp 16 04/25/21 12:20 BP 99/55 04/25/21 12:20 Pulse Ox 98 04/25/21 12:20 04/25/21 04/25/21 04/25/21 06:59 14:59 22:59 Intake Total 30 / 730 990 / 990 Output Total 100 / 350 Balance -70 / 380 990 / 990 Physical Exam Const: COMMON NORMALS: no acute distress, average body habitus and alert GENERAL APPEARANCE: cooperative and comfortable ORIENTATION/CONSCIOUSNESS: Yes awake HENMT: COMMON NORMALS: normocephalic and atraumatic HEAD & SCALP: normocephalic and atraumatic Eye: GENERAL EYE: appearance normal, both eyes and all related structures Chest: COMMONS NORMALS: normal inspection of the chest Resp: COMMON NORMALS: normal respiratory effort EFFORT & INSPECTION: Yes able to speak in complete sentences and Yes symmetric chest movement Extremity: NARRATIVE EXTREMITY EXAM: There is significant swelling and pitting edema in both lower extremities. RIGHT LOWER EXTREMITY: Yes upper leg (Dressing was changed approximately 1 hour ago. It is intact.) Right upper leg: Yes inspection (Significant swelling throughout the right lower extremity.), Yes palpation (Tender to palpation over the thigh.) and Yes neurovascular exam (Able to move foot and intact distally for the patient.) Neuro: SENSORIUM/ORIENTATION: Yes alert Psych: APPEARANCE: Yes grossly normal ATTITUDE: Yes calm and Yes engaged ATTENTION/CONCENTRATION: Yes attention grossly intact Skin: COMMON NORMALS: no rashes or lesions noted GENERAL SKIN EXAM: no rashes or lesions noted Urinary Catheter Management^: Jay: Cath Placed During This Visit: yes Reason for Continuing Indwelling Catheter: Acute Urinary Retention or Obstruction Urinary Catheter Date of Insertion: 04/23/21 Urinary Catheter Time of Insertion: 12:50 Data : 04/25/21 03:14 04/25/21 03:14 A&P Assessment and plan (1) Fracture of femur following insertion of orthopedic implant, joint prosthesis, or bone plate, right leg: This 86-year-old woman underwent open reduction internal fixation of an intertrochanteric subtrochanteric hip fracture with Dr. Russell on March 04, 2021. While at her residential, she fell suffering the above injury. No further details are known. Patient has periprosthetic fracture which required removal of her previous intramedullary nail and replacement with a long trochanteric nail. The patient had her surgery uneventfully. Today, H&H has decreased, again, and she is receiving 1 unit of packed red blood cells. She is also having issues with sundowning , and she has also exhibited some signs of paranoia. Her daughter is with her in the room. We will continue to treat her medical issues with hopes of returning her to her normal residence at [facility]. Status: Acute Attestations Medical Necessity Statement*: Ongoing medical care following periprosthetic femur fracture with medical comorbidities. Coding Level of Care Code Acute Fpga Engineer for Jani Fwd Exam Detailed Diagnoses Fracture of femur following insertion of orthopedic implant, joint prosthesis, or bone plate, right leg M96.661
--- NOTE | 2021-04-25 16:15 | PC.SLP ---
Spoke with the patient's daughter. The patient is currently resting. Due to the patient's condition, she is on the appropriate diet level at this time. CARTON INSPECTOR will reintervene when the patient's condition improves.
[2021-04-25 16:28] LABS: Glucose Point of Care 298 mg/dL (70-110)
--- NOTE | 2021-04-25 19:23 | PC.NURSE ---
INITIAL ASSESSMENT NOTE PT RESTING QUIETLY - AWAKENS TO ASSESSMENT - A&O X4 - NOTED RIGHT AC AREA TO HAVE LARGE BRUISING - RIGHT LEG WITH GREATER EDEMA THAN LEFT - WILL MONITOR
[2021-04-25 19:30] LABS: Hematocrit 25.1 % (37.0-47.0); Hemoglobin 8.1 g/dL (11.5-15.3)
[2021-04-25] MEDS: lactulose oral liq 20 gm/30 mL UDC PO (19:42)
[2021-04-25] MEDS: FUROsemide 10 mg/mL SDV 2mL 20 MG IVP (19:42)
[2021-04-25] MEDS: docusate sodium 100 mg Capsule PO (19:43)
[2021-04-25] MEDS: quetiapine 100 mg Tablet PO (19:43)
[2021-04-25] MEDS: calcium gluconate 0.1 gm/mL 10% SDV 10mL 1 GM IVP (19:43)
[2021-04-25 19:48] LABS: Ammonia 64 umol/L (11-51)
[2021-04-25 20:41] LABS: Free T4 Free Thyroxine 0.89 ng/dL (0.82-1.77)
[2021-04-25 20:48] LABS: Glucose Point of Care 342 mg/dL (70-110)
--- NOTE | 2021-04-25 23:37 | PC.NURSE ---
CONFUSION 2400 TYLENOL GIVEN PO SCHEDULED - PT NOTED TO BE CONFUSED AT PRESENT TIME - REPOSITIONED AND WILL MONITOR
[2021-04-26] VITALS (7 sets, daily range): BP systolic 94–123; BP diastolic 57–68; PULSE 88–104; RESP 16–18; TEMP 36.6–37.3; O2SAT 91–98
--- NOTE | 2021-04-26 04:09 | PC.NURSE ---
END OF SHIFT SUMMARY PT HAS RESTED FOR THE MOST PART OF THE SHIFT - WHEN AWAKE PT IS CONFUSED BUT COOPERATIVE - RIGHT HIP DRESSING CONTINUES TO DRAIN SEROSANGINOUS DRAINAGE - BOTELLO WITH 200 DARK URINE OUT AT 0300 - WILL CONTINUE TO MONITOR
[2021-04-26 05:27] LABS: Basophils % 0.6 %; Eosinophils # 0.1 10^3/uL (0.0-0.8); Eosinophils % 1.7 %; Hematocrit 26.1 % (37.0-47.0); Lymphocytes # 0.5 10^3/uL (0.8-4.8); Lymphocytes % 9.8 %; Mean Corpuscular HGB Conc 30.7 g/dL (30.0-36.0); Mean Corpuscular Hemoglobin 32.7 pg (28.0-34.0); Mean Corpuscular Volume 106.5 fL (81-99); Mean Platelet Volume 9.9 fL (7.4-10.4); Monocytes # 0.7 10^3/uL (0.2-0.9); Monocytes % 13.7 %; Neutrophils % 72.5 %; Nucleated Red Blood Cells % 0 %; Platelet Count 58 10^3/cmm (130-400); Red Blood Count 2.45 10^6/uL (4.1-5.3); Red Cell Distribution Width 19.5 % (12.1-15.1); White Blood Count 4.8 10^3/uL (4.0-10.0)
[2021-04-26] MEDS: ALPRAZolam 0.5 mg Tablet 0.25 MG PO ×2 (05:48→22:05)
[2021-04-26] MEDS: levothyroxine 125 mcg Tablet PO (05:48)
[2021-04-26] MEDS: albumin 12.5 GM/250 ML VIAL IV (05:49)
[2021-04-26 06:13] LABS: Anion Gap 14.2 (5-19); Blood Urea Nitrogen 53 mg/dL (8-23); Calcium 7.6 mg/dL (8.5-10.5); Carbon Dioxide 25 mmol/L (22-29); Chloride 101 mmol/L (98-107); Glucose 243 mg/dL (65-115); Osmolality Calculated 304 mOsm/kg (285-295); Potassium 4.2 mmol/L (3.5-5.1); Sodium 136 mmol/L (136-145)
[2021-04-26 06:40] LABS: Glucose Point of Care 280 mg/dL (70-110)
[2021-04-26] MEDS: acetaminophen 500 mg Tablet 1000 MG PO ×2 (09:11→17:44)
[2021-04-26] MEDS: sennosides-docusate Tablet 1 TAB PO (09:11)
[2021-04-26] MEDS: aspirin 325 mg EC Tablet PO (09:11)
[2021-04-26] MEDS: FUROsemide 40 mg Tablet PO (09:12)
[2021-04-26] MEDS: iron complex forte Capsule 1 EACH PO ×2 (09:12→17:44)
[2021-04-26] MEDS: midodrine 5 mg TABLET 10 MG PO ×3 (09:12→22:06)
[2021-04-26] MEDS: pantoprazole 40 mg SDV IVP (09:12)
[2021-04-26] MEDS: lactulose oral liq 20 gm/30 mL UDC PO ×2 (09:12→22:06)
[2021-04-26] MEDS: cefTRIAXone 1,000 MG in sodium chloride 0.9% (plus) 50 ML 100 MG IV (09:25)
[2021-04-26 10:44] LABS: Glucose Point of Care 343 mg/dL (70-110)
[2021-04-26 12:02] LABS: Glucose Point of Care 326 mg/dL (70-110)
--- NOTE | 2021-04-26 13:41 | PM.PN ---
Subjective Subjective: Interval history: The patient is seen in her room. Family is not present. She seems in great spirits today. She engages and shows me how she can wiggle her foot. Discussion has been undertaken with family regarding her postoperative rehab. Additionally, I have discussion with the daughter regarding weightbearing status. We will attempt to have her be touchdown weightbearing, however, I am doubtful she will be able to maintain this and will likely have to be limited weightbearing as tolerated. Vitals/I&O/Wt Last Vital Signs Temp 98.3 F 04/26/21 12:00 Pulse 104 H 04/26/21 12:00 Resp 17 04/26/21 12:00 BP 119/68 04/26/21 12:00 Pulse Ox 91 04/26/21 12:00 04/25/21 04/26/21 04/26/21 22:59 06:59 14:59 Intake Total 120 / 1110 540 / 540 Output Total 200 / 200 500 / 700 Balance -80 / 910 -500 / 410 540 / 540 Physical Exam Const: COMMON NORMALS: no acute distress, average body habitus and alert GENERAL APPEARANCE: cooperative and comfortable ORIENTATION/CONSCIOUSNESS: Yes awake HENMT: COMMON NORMALS: normocephalic and atraumatic HEAD & SCALP: normocephalic and atraumatic Eye: GENERAL EYE: appearance normal, both eyes and all related structures Chest: COMMONS NORMALS: normal inspection of the chest Resp: COMMON NORMALS: normal respiratory effort EFFORT & INSPECTION: Yes able to speak in complete sentences and Yes symmetric chest movement Extremity: NARRATIVE EXTREMITY EXAM: There is significant swelling and pitting edema in both lower extremities, but this appears improved since yesterday. RIGHT LOWER EXTREMITY: Yes hip joint (Thigh is soft. Drainage appears to have decreased.) Right hip: Yes palpation (Minimal tenderness.), Yes ROM (Not evaluated.) and Yes neurovascular exam (Normal for patient.) Neuro: SENSORIUM/ORIENTATION: Yes alert Psych: COMMON NORMALS: mental status grossly normal APPEARANCE: Yes grossly normal ATTITUDE: Yes calm and Yes engaged ATTENTION/CONCENTRATION: Yes attention grossly intact Skin: COMMON NORMALS: no rashes or lesions noted GENERAL SKIN EXAM: no rashes or lesions noted Urinary Catheter Management^: Jay: Cath Placed During This Visit: yes Reason for Continuing Indwelling Catheter: Other Urinary Catheter Date of Insertion: 04/23/21 Urinary Catheter Time of Insertion: 12:50 Data : 04/26/21 05:15 04/26/21 05:15 Micro: Microbiology 04/25/21 02:00 Urine Culture - Preliminary Urine,Clean Catch Gram Negative Rods A&P Assessment and plan (1) Fracture of femur following insertion of orthopedic implant, joint prosthesis, or bone plate, right leg: This 86-year-old woman underwent open reduction internal fixation of an intertrochanteric subtrochanteric hip fracture with Dr. Russell on March 04, 2021. While at her group home, she fell suffering the above injury. No further details are known. Patient has periprosthetic fracture which required removal of her previous intramedullary nail and replacement with a long trochanteric nail. The patient had her surgery uneventfully. Today, H&H is 8.0/26.1. She is also having issues with sundowning , and she has exhibited some signs of paranoia. No family is with her at the time of my visit today. We will continue to treat her medical issues with hopes of returning her to her normal residence at [facility]. Status: Acute Attestations Medical Necessity Statement*: Patient requires inpatient status for ongoing post operative management and medical optimization before [facility] to [facility]. Coding Level of Care Code Acute Senior Dynamics Crm Developer for Jani Kumar Diagnoses Fracture of femur following insertion of orthopedic implant, joint prosthesis, or bone plate, right leg M96.661
[2021-04-26 17:51] LABS: Glucose Point of Care 305 mg/dL (70-110)
--- NOTE | 2021-04-26 18:00 | PC.NURSE ---
Shift Note Frequent safety and comfort rounds continue. Orders and/or nursing care completed as indicated. Patient monitored for response to intervention and treatment(s). Education provided includes usage and side effects of novolog, encouragement of usage of incentive spirometer with Patient verbalizing understanding. patient has had serosanguinous drainage from surgical incisions. Dressings changed. Patient currently resting comfortably in bed. Will continue to monitor.
--- NOTE | 2021-04-26 18:51 | PM.PN ---
Subjective Subjective: Interval history: Blood pressure better, patient endorsing feeling better today, she is not paranoid today was very pleasant and cooperative during my evaluation, afebrile, talk with Dr. Beltran who was recommended touchdown full weightbearing and if patient is not able to do that at least would do partial weightbearing and follow-up with PT/OT recommendations, she will be discharged with aspirin 14-day regimen for DVT prophylaxis Creatinine improving, urine output 500 mL started rifaximin and lactulose for liver cirrhosis Vitals/I&O/Wt Last Vital Signs Temp 98.0 F 04/26/21 16:00 Pulse 95 04/26/21 16:00 Resp 17 04/26/21 16:00 BP 123/67 04/26/21 16:00 Pulse Ox 92 04/26/21 16:00 04/26/21 04/26/21 04/26/21 06:59 14:59 22:59 Intake Total 540 / 540 240 / 780 Output Total 500 / 700 Balance -500 / 410 540 / 540 240 / 780 Physical Exam Narrative: EXAM NARRATIVE: Patient was cooperative and pleasant during my evaluation Was saturating well on room air She was awake alert oriented x3 GCS 15 no neurological deficit S1, S2 aortic systolic murmur Abdomen soft bowel sounds present Lower extremity no signs of ischemia gangrene or ulcer She is able to move lower extremity to some extent Pedal edema bilaterally Urinary Catheter Management^: Jay: Cath Placed During This Visit: yes Reason for Continuing Indwelling Catheter: Perioperative Use in Selected Surgeries Urinary Catheter Date of Insertion: 04/23/21 Urinary Catheter Time of Insertion: 12:50 Data : 04/26/21 05:15 04/26/21 05:15 Micro: Microbiology 04/25/21 02:00 Urine Culture - Preliminary Urine,Clean Catch Gram Negative Rods A&P Assessment and plan (1) Delusional disorder: Status: Acute (2) UTI (urinary tract infection): Status: Acute (3) LAVON (acute kidney injury): Status: Acute (4) Acute blood loss anemia: Status: Acute (5) Fracture of femur following insertion of orthopedic implant, joint prosthesis, or bone plate, right leg: Status: Acute Additional A&P Information Delusional disorder: Seems to be improved Likely secondary to hepatic encephalopathy which was probably triggered by UTI UTI: Continue ceftriaxone urine showing gram-negative rods LAVON: Creatinine improving Acute blood loss anemia postop: Hemoglobin stable Blood pressure stable received 1 dose of albumin as well Postop day 3: Dr. Silver recommended touchdown total weightbearing or at least partial weightbearing if patient is not compliant follow-up with PT/OT recommendation to be discharged on aspirin 14-day regimen for DVT prophylaxis 325 mg She will be discharged back to [facility] once kidney function is better Thickened diet Full code Attestations Medical Necessity Statement*: Anticipating discharge within 48 hours provided creatinine improving Time Spent in Patient Care: less than 15 minutes Coding Level of Care Code Acute Destination Imagination Coordinator for Chg Fwd Diagnoses Delusional disorder F22 UTI (urinary tract infection) N39.0 LAVON (acute kidney injury) N17.9 Acute blood loss anemia D62 Fracture of femur following insertion of orthopedic implant, joint prosthesis, or bone plate, right leg M96.661
[2021-04-26 21:42] LABS: Glucose Point of Care 349 mg/dL (70-110)
[2021-04-26] MEDS: docusate sodium 100 mg Capsule PO (22:06)
[2021-04-26] MEDS: quetiapine 100 mg Tablet PO (22:06)
[2021-04-27] MEDS: acetaminophen 500 mg Tablet 1000 MG PO ×4 (01:35→23:49)
[2021-04-27 04:00] VITALS: BP 110/66; PULSE 100; RESP 16; TEMP 36.9; O2SAT 92
[2021-04-27] MEDS: ALPRAZolam 0.5 mg Tablet 0.25 MG PO ×2 (05:20→21:16)
[2021-04-27] MEDS: levothyroxine 125 mcg Tablet PO (05:20)
[2021-04-27 07:05] LABS: Glucose Point of Care 315 mg/dL (70-110)
[2021-04-27 07:35] VITALS: BP 110/69; PULSE 99; RESP 20; TEMP 36.9; O2SAT 91
[2021-04-27 08:00] VITALS: BP 110/69; PULSE 99; RESP 20; TEMP 36.9
[2021-04-27 09:08] LABS: Basophils % 0.8 %; Eosinophils # 0.1 10^3/uL (0.0-0.8); Eosinophils % 2.1 %; Hematocrit 28.5 % (37.0-47.0); Hemoglobin 9.2 g/dL (11.5-15.3); Lymphocytes # 0.4 10^3/uL (0.8-4.8); Lymphocytes % 8.6 %; Mean Corpuscular HGB Conc 32.3 g/dL (30.0-36.0); Mean Corpuscular Hemoglobin 33.3 pg (28.0-34.0); Mean Corpuscular Volume 103.3 fl (81-99); Mean Platelet Volume 10.1 fL (7.4-10.4); Monocytes # 0.5 10^3/uL (0.2-0.9); Monocytes % 10.5 %; Neutrophils # 3.65 10^3/uL (1.8-7.7); Neutrophils % 77.2 %; Nucleated Red Blood Cells % 0 %; Platelet Count 67 10^3/cmm (130-400); Red Blood Count 2.76 10^6/uL (4.1-5.3); Red Cell Distribution Width 19.2 % (12.1-15.1); White Blood Count 4.7 10^3/uL (4.0-10.0)
[2021-04-27] MEDS: midodrine 5 mg TABLET 10 MG PO ×3 (09:28→21:15)
[2021-04-27] MEDS: lactulose oral liq 20 gm/30 mL UDC PO (09:28)
[2021-04-27] MEDS: sennosides-docusate Tablet 1 TAB PO (09:28)
[2021-04-27] MEDS: aspirin 325 mg EC Tablet PO (09:28)
[2021-04-27] MEDS: FUROsemide 40 mg Tablet PO (09:29)
[2021-04-27] MEDS: iron complex forte Capsule 1 EACH PO ×2 (09:30→18:41)
[2021-04-27 09:39] LABS: Anion Gap 14.9 (5-19); Blood Urea Nitrogen 51 mg/dL (8-23); Calcium 8.1 mg/dL (8.5-10.5); Carbon Dioxide 26 mmol/L (22-29); Chloride 99 mmol/L (98-107); Glucose 297 mg/dL (65-115); Osmolality Calculated 307 mOsm/kg (285-295); Potassium 3.9 mmol/L (3.5-5.1); Sodium 136 mmol/L (136-145)
--- NOTE | 2021-04-27 10:14 | PC.SOCIAL ---
IMM Updated Updated pt on Pg 2 IMM. No questions voiced. Provided pt a copy. Initialed, dated, & timed copy in chart.
[2021-04-27 11:05] LABS: Glucose Point of Care 383 mg/dL (70-110)
[2021-04-27 11:44] VITALS: BP 126/79; PULSE 89; RESP 18; TEMP 36.7; O2SAT 94
--- NOTE | 2021-04-27 11:56 | PM.PN ---
Subjective Subjective: Interval history: Patient was seen and examined this morning, she wanted to eat her breakfast, while I was examining her she had a 1 bowel movement, loose stool Creatinine improving Mentation improved Afebrile, no leukocytosis hemoglobin stable at 9.2 Dressing dry without any signs of active bleeding Creatinine 1.2 today with diuresis Pressure seems to have improved after albumin administration Vitals/I&O/Wt Last Vital Signs Temp 98.1 F 04/27/21 11:44 Pulse 89 04/27/21 11:44 Resp 18 04/27/21 11:44 BP 126/79 04/27/21 11:44 Pulse Ox 94 04/27/21 11:44 04/26/21 04/27/21 04/27/21 22:59 06:59 14:59 Intake Total 480 / 1020 240 / 240 Output Total 550 / 550 750 / 1300 Balance -70 / 470 -750 / -280 240 / 240 Physical Exam Narrative: EXAM NARRATIVE: Pleasant cooperative female was laying comfortably in her bed Breakfast tray at the bedside Had 1 bowel movement Distended abdomen, ascites, central obesity Lower extremity 3+ pitting edema No active sign of cellulitis Alert oriented x3 GCS 15 Bilateral diminished breath sounds, saturating well on room air Dressing not soaked with blood today Urinary Catheter Management^: Jay: Cath Placed During This Visit: yes Reason for Continuing Indwelling Catheter: Required Immobilization for Trauma or Surgery or Anesthesia Urinary Catheter Date of Insertion: 04/23/21 Urinary Catheter Time of Insertion: 12:50 Data : 04/27/21 09:02 04/27/21 09:02 Micro: Microbiology 04/25/21 02:00 Urine Culture - Preliminary Urine,Clean Catch Gram Negative Rods A&P Assessment and plan (1) Delusional disorder: Status: Acute (2) UTI (urinary tract infection): Status: Acute (3) LAVON (acute kidney injury): Status: Acute (4) Acute blood loss anemia: Status: Acute (5) Fracture of femur following insertion of orthopedic implant, joint prosthesis, or bone plate, right leg: Status: Acute Additional A&P Information Encephalopathy/delusional disorder: Resolved Likely related to UTI with underlying hepatic encephalopathy liver cirrhosis Continue rifaximin and lactulose UTI: Gram-negative gabriela noted Continue ceftriaxone for now Acute kidney injury: Creatinine improved with diuresis, diuretics were added after administration of albumin which helped with mean arterial pressure Continue diuresis for now Acute blood loss anemia postoperative, continue iron supplementation, status post 2 unit PRBC hemoglobin stable Postop day 4 Touchdown total weightbearing Or at least partial weightbearing To follow-up with PT/OT recommendations Plan to discharge her back to long-term with aspirin 325mg 14-day regimen for DVT prophylaxis . Thickened diet Full code Attestations Medical Necessity Statement*: Patient will be discharged back to long-term likely tomorrow if creatinine keeps improving Time Spent in Patient Care: less than 15 minutes Coding Level of Care Code Acute Manager Simulation for Chg Fwd Diagnoses Delusional disorder F22 UTI (urinary tract infection) N39.0 LAVON (acute kidney injury) N17.9 Acute blood loss anemia D62 Fracture of femur following insertion of orthopedic implant, joint prosthesis, or bone plate, right leg M96.661
[2021-04-27] MEDS: cefTRIAXone 1,000 MG in sodium chloride 0.9% (plus) 50 ML 100 MG IV (12:03)
[2021-04-27] MEDS: pantoprazole 40 mg SDV IVP (13:28)
[2021-04-27 15:50] VITALS: BP 132/78; PULSE 89; RESP 15; TEMP 36.6; O2SAT 95
[2021-04-27 17:40] LABS: Glucose Point of Care 374 mg/dL (70-110)
[2021-04-27 20:00] VITALS: BP 110/62; PULSE 92; RESP 17; TEMP 37.3; O2SAT 94
[2021-04-27 20:44] LABS: Glucose Point of Care 356 mg/dL (70-110)
[2021-04-27] MEDS: quetiapine 100 mg Tablet PO (21:16)
[2021-04-27] MEDS: docusate sodium 100 mg Capsule PO (21:16)
[2021-04-28] VITALS: BP 102/63; PULSE 98; RESP 16; TEMP 36.7; O2SAT 93
[2021-04-28 03:34] VITALS: BP 110/66; PULSE 91; RESP 20; TEMP 36.4; O2SAT 92
[2021-04-28] MEDS: levothyroxine 125 mcg Tablet PO (05:30)
[2021-04-28] MEDS: ALPRAZolam 0.5 mg Tablet 0.25 MG PO (05:30)
[2021-04-28 06:47] LABS: Glucose Point of Care 285 mg/dL (70-110)
[2021-04-28 07:45] LABS: Basophils % 0.7 %; Eosinophils # 0.1 10^3/uL (0.0-0.8); Eosinophils % 3.1 %; Hematocrit 29.1 % (37.0-47.0); Hemoglobin 9.1 g/dL (11.5-15.3); Lymphocytes # 0.4 10^3/uL (0.8-4.8); Mean Corpuscular HGB Conc 31.3 g/dL (30.0-36.0); Mean Corpuscular Volume 105.4 fl (81-99); Mean Platelet Volume 10.5 fL (7.4-10.4); Monocytes # 0.5 10^3/uL (0.2-0.9); Monocytes % 12.7 %; Neutrophils # 3.08 10^3/uL (1.8-7.7); Neutrophils % 72.6 %; Nucleated Red Blood Cells % 0 %; Platelet Count 66 10^3/cmm (130-400); Red Blood Count 2.76 10^6/uL (4.1-5.3); Red Cell Distribution Width 18.8 % (12.1-15.1); White Blood Count 4.2 10^3/uL (4.0-10.0)
[2021-04-28 08:00] VITALS: BP 136/70; PULSE 96; RESP 17; TEMP 36.3; O2SAT 96
[2021-04-28 08:15] LABS: Anion Gap 11.7 (5-19); Blood Urea Nitrogen 59 mg/dL (8-23); Calcium 8.3 mg/dL (8.5-10.5); Carbon Dioxide 27 mmol/L (22-29); Chloride 100 mmol/L (98-107); Glucose 264 mg/dL (65-115); Osmolality Calculated 306 mOsm/kg (285-295); Potassium 3.7 mmol/L (3.5-5.1); Sodium 135 mmol/L (136-145)
[2021-04-28] MEDS: sennosides-docusate Tablet 1 TAB PO (09:28)
[2021-04-28] MEDS: pantoprazole 40 mg SDV IVP (09:28)
[2021-04-28] MEDS: FUROsemide 40 mg Tablet PO (09:28)
[2021-04-28] MEDS: iron complex forte Capsule 1 EACH PO ×2 (09:28→16:39)
[2021-04-28] MEDS: acetaminophen 500 mg Tablet 1000 MG PO ×2 (09:28→16:39)
[2021-04-28] MEDS: midodrine 5 mg TABLET 10 MG PO ×2 (09:28→16:39)
[2021-04-28] MEDS: cefTRIAXone 1,000 MG in sodium chloride 0.9% (plus) 50 ML 100 MG IV (09:29)
[2021-04-28] MEDS: lactulose oral liq 20 gm/30 mL UDC PO (09:29)
[2021-04-28] MEDS: aspirin 325 mg EC Tablet PO (09:34)
--- NOTE | 2021-04-28 10:49 | PC.NURSE ---
rcvd order to discontinue eldridge catheter. marine underwriter put order in.
[2021-04-28 11:03] LABS: Glucose Point of Care 330 mg/dL (70-110)
--- NOTE | 2021-04-28 11:09 | P.DS_ITS ---
Discharge Providers Date of Admission: 04/22/21 07:07 Date of Discharge: April 28, 2021 Attending Provider at Admission: Buzz Mason Attending Provider at Discharge: Tootie Ken MD Primary Care Provider: Alvino Kimble MD Diagnoses at Discharge Discharge Diagnosis (1) Delusional disorder: Status: Acute (2) UTI (urinary tract infection): Status: Acute (3) LAVON (acute kidney injury): Status: Acute (4) Acute blood loss anemia: Status: Acute (5) Fracture of femur following insertion of orthopedic implant, joint prosthesis, or bone plate, right leg: Status: Acute Reason for Visit Reason for Visit: FALL Hospital Course Hospital Course Patient was admitted on 04/22 for hip fracture management. Dr. Silver was consulted for management. Patient underwent open reduction internal fixation of right periprosthetic hip fracture with removal of gamma nail and reinsertion of long gamma nail. Estimated blood loss 500 mL during surgery. Postoperatively patient required 2 units PRBC, repeat CT scan did not show any hematoma however CT abdomen pelvis consistent with liver cirrhosis and ascites. Patient did show delusional symptoms. UA was requested which came back positive for UTI with Citrobacter freundii, she was on ceftriaxone her delusional disorder improved, lactulose and rifaximin was added as well for high ammonia level. Of note, she remained hypotensive postoperatively, after units of blood her blood pressure was not improving, she was started on midodrine, she received 2 doses of albumin, after getting albumin blood pressure improved to some extent. TSH 7.8, increase levothyroxine dose from 125 to 137 mcg Hemoglobin 9.1 on discharge She did experience LAVON secondary to UTI and fluid overload which improved gradually on discharge creatinine is 1.2 it peaked at 1.8, Medications to be changed at the time of discharge Levothyroxine dose increased Discontinued propanolol Reduce the dose of Lasix to 40 mg from 80 mg, spironolactone down to 50 mg from 100 mg Added midodrine 5 mg 3 times a day Added Levaquin for UTI 5-day course Added aspirin 325 mg for 14-day regimen for DVT prophylaxis as per orthopedics recommendations She needs daily dressing change, she will need total touchdown weightbearing and if she stays noncompliant at least partial weightbearing, increase activity with PT recommendations [place] can be removed in 2 or 2-1/2 weeks Physical Exam Narrative: EXAM NARRATIVE: Pleasant cooperative female was laying comfortably in her bed Breakfast tray at the bedside Had 1 bowel movement Distended abdomen but better as compared to yesterday, ascites, central obesity Lower extremity 3+ pitting edema No active sign of cellulitis Alert oriented x3 GCS 15 Bilateral diminished breath sounds, saturating well on room air Dressing not soaked with blood today Urinary Catheter Management^: Jay: Cath Placed During This Visit: yes, but has since been removed by the nurse Reason for Continuing Indwelling Catheter: Decision to DC Catheter Urinary Catheter Date of Insertion: 04/23/21 Urinary Catheter Time of Insertion: 12:50 Date Urinary Catheter Removed: 04/28/21 Time Urinary Catheter Discontinued: 10:54 Discharge Data Data Completed and Pending: Completed Studies During Hospitalization Category Date Time Status CT abdomen pelvis wo con 34121 Stat Cat Scan 04/25/21 08:[address] cervical spin wo con* [id number] Urge nt Cat Scan 04/22/21 04:[address] femur RT wo co n* [id number] Stat Cat Scan 04/25/21 08:[address] head wo con* 7 [id number] Urgent Cat Scan 04/22/21 04:46 Completed XR chest 1V ramiro ble [id number] Urgent Exams 04/22/21 05:21 Completed XR femur RT min 2 V* [id number] Routine Exams 04/23/21 15:06 Completed XR hip RT 2-3V wo /w pel* [id number] Stat Exams 04/22/21 05:08 Completed XR knee RT 3V* 73 [id number] Stat Exams 04/22/21 05:08 Completed Labs from last 24 hours 04/28/21 04/28/21 04/28/21 11:01 07:18 07:18 WBC 4.2 RBC 2.76 L Hgb 9.1 L Hct 29.1 L MCV 105.4 H MCH 33.0 MCHC 31.3 RDW 18.8 H Plt Count 66 L MPV 10.5 H Neut % (Auto) 72.6 Lymph % (Auto) 9.0 [place] % (Auto) 12.7 Eos % (Auto) 3.1 Baso % (Auto) 0.7 Neut # (Auto) 3.08 Lymph # (Auto) 0.4 L [place] # (Auto) 0.5 Eos # (Auto) 0.1 Baso # (Auto) 0.0 Nucleated RBC % (a uto) 0 Nucleated RBCs # 0.0 Sodium 135 L Potassium 3.7 Chloride 100 Carbon Dioxide 27 Anion Gap 11.7 BUN 59 H Creatinine 1.2 H GFR Calculation Not Reportable Glucose 264 H POC Glucose 330 H Calculated Osmolal ity 306 H Calcium 8.3 L 04/28/21 04/27/21 04/27/21 06:02 20:36 17:28 WBC RBC Hgb Hct MCV MCH MCHC RDW Plt Count MPV Neut % (Auto) Lymph % (Auto) [place] % (Auto) Eos % (Auto) Baso % (Auto) Neut # (Auto) Lymph # (Auto) [place] # (Auto) Eos # (Auto) Baso # (Auto) Nucleated RBC % (a uto) Nucleated RBCs # Sodium Potassium Chloride Carbon Dioxide Anion Gap BUN Creatinine GFR Calculation Glucose POC Glucose 285 H 356 H 374 H Calculated Osmolal ity Calcium Vitals: Last Vital Signs Temp 97.4 F L 04/28/21 08:00 Pulse 96 04/28/21 08:00 Resp 17 04/28/21 08:00 BP 136/70 04/28/21 08:00 Pulse Ox 96 04/28/21 08:00 Discharge Plan Discharge Patient Disposition: Xfer SNF Condition: Stable Prescriptions: New Euthyrox 137 mcg tablet 137 mcg PO DAILY Qty: 30 RF: 0 levofloxacin 750 mg tablet 750 mg PO DAILY 5 Days RF: 0 midodrine 5 mg tablet 5 mg PO TID Qty: 60 RF: 0 rifaximin 550 mg tablet 550 mg PO BID Qty: 60 RF: 0 aspirin 325 mg tablet 325 mg PO DAILY 14 Days Qty: 14 RF: 0 Continued quetiapine [Seroquel] 100 mg Tablet 100 mg PO DAILY@20 RF: 0 albuterol sulfate [ProAir HFA] 90 mcg/actuation Hfa Aerosol Inhaler 2 puff INHALATION Q4H PRN (Reason: Shortness Of Breath) RF: 0 Fleet Enema 19-7 gram/118 mL Enema 118 ml MA DAILY PRN (Reason: Constipation) RF: 0 hydrocodone-acetaminophen 5-325 mg Tablet 1 tab PO Q4H PRN (Reason: Pain) 7 Days Qty: 25 RF: 0 acetaminophen [Tylenol] 325 mg Tablet 650 mg PO Q6H PRN (Reason: Pain) RF: 0 magnesium hydroxide [Milk of Magnesia] 400 mg/5 mL Suspension 30 ml PO DAILY PRN (Reason: Constipation) RF: 0 bisacodyl 10 mg Suppository 10 mg MA DAILY PRN (Reason: Constipation) RF: 0 alprazolam 0.25 mg Tablet 0.25 mg PO BID@07,20 RF: 0 lactulose 10 gram/15 mL Solution 15 ml PO BID@07,20 RF: 0 Icy Hot(lidocaine HCl-menthol) 4-1 % Cream 1 applic topical BID PRN (Reason: Pain) RF: 0 Novolog Flexpen U-100 Insulin 100 unit/mL (3 mL) Insulin Pen See Rx Instructions .ROUTE .COMPLEX RF: 0 Changed spironolactone 100 mg Tablet 50 mg PO DAILY@07 Qty: 0 RF: 0 Lasix 80 mg Tablet 40 mg PO DAILY Qty: 0 RF: 0 Lantus Solostar U-100 Insulin 100 unit/mL (3 mL) Insulin Pen 30 unit SUBCUT DAILY@20 Qty: 0 RF: 0 Discontinued propranolol 20 mg Tablet 20 mg PO BID RF: 0 levothyroxine 125 mcg Tablet 125 mcg PO DAILY@05 RF: 0 Discharge Orders: Discharge Order (Routine); Ordered 04/28/21 Ordered By: Tootie Ken Referrals: Ca Silver MD [Physician] - 2 weeks Alvino Kimble MD [Primary Care Provider] - 4-7 days Discharge Diet: Soft Mechanical Discharge Activity: Limit activity as instructed and As per PT/OT instructions Activity Restrictions/Additional Instructions: Patient is to be touchdown weightbearing. (If patient stays noncompliant at least partial weightbearing) Please change dressing daily. [place] may be removed in 2-1/2 weeks. Increase levothyroxine dose 237 mcg Decrease Lasix and spironolactone dosages Added midodrine you will take aspirin 325 mg for 14 days as DVT prophylaxis then continue 81 mg daily Levaquin 5-day course for UTI Added rifaximin along lactulose for liver cirrhosis and ascites Discontinued propanolol Discharge Attestations Time Spent in Discharge Care*: less than 30 min Status at Discharge: Cognitive status at discharge: cognitively intact , Behavioral status at discharge: cooperative , Quality Metrics Clinical Quality Measures During this hospital stay, did patient experience: None Coding Level of Care Code Acute Chg FW DC note Diagnoses Delusional disorder F22 UTI (urinary tract infection) N39.0 LAVON (acute kidney injury) N17.9 Acute blood loss anemia D62 Fracture of femur following insertion of orthopedic implant, joint prosthesis, or bone plate, right leg M96.661
[2021-04-28 12:00] VITALS: BP 102/50; PULSE 99; RESP 16; TEMP 36.7; O2SAT 95
[2021-04-28 15:18] VITALS: BP 118/53; PULSE 95; RESP 15; TEMP 36.6; O2SAT 95
--- NOTE | 2021-04-28 17:04 | PC.NURSE ---
Called [facility] and gave report to ADARSH Schmitz. Called patient's son Yovany and left message that patient is returning to SNF today.
[2021-04-28 17:24] LABS: Glucose Point of Care 371 mg/dL (70-110)
--- NOTE | 2021-04-28 17:25 | PC.NURSE ---
patient taken to SNF by dayan edouard.
[2021-04-28 17:26] VITALS: BP 118/53; PULSE 95; RESP 15; TEMP 36.6; O2SAT 95
== END 2021-04-28 17:27 | disposition skilled nursing facility (03) | DRG 481 ==
LOC: ER 05:27 → ER IP 09:01 → MEDSURG 11:08
PROVIDERS: Specialist; Admitting Provider Hospitalist; Emergency Provider Emergency Medicine; PCP Family Medicine; Visit Provider Internal Medicine
PROC: (CPT 27245; 2021-04-23 10:15)
DX: S72.001A Fracture of unspecified part of neck of right femur, initial encounter for closed fracture (principal); M96.661 Fracture of femur following insertion of orthopedic implant, joint prosthesis, or bone plate, right leg; N17.9 Acute kidney failure, unspecified; D62 Acute posthemorrhagic anemia; N39.0 Urinary tract infection, site not specified; W01.198A Fall on same level from slipping, tripping and stumbling with subsequent striking against other object, initial encounter; Y93.89 Activity, other specified; Y92.002 Bathroom of unspecified non-institutional (private) residence as the place of occurrence of the external cause; J44.9 Chronic obstructive pulmonary disease, unspecified; H40.9 Unspecified glaucoma; I10 Essential (primary) hypertension; E03.9 Hypothyroidism, unspecified; E11.9 Type 2 diabetes mellitus without complications; F22 Delusional disorders; Z20.822 Contact with and (suspected) exposure to COVID-19; Z98.42 Cataract extraction status, left eye; Z98.41 Cataract extraction status, right eye; Z90.49 Acquired absence of other specified parts of digestive tract; Z90.710 Acquired absence of both cervix and uterus; Z88.2 Allergy status to sulfonamides; Z79.890 Hormone replacement therapy; Z79.82 Long term (current) use of aspirin; Z88.8 Allergy status to other drugs, medicaments and biological substances
CPT/HCPCS: 36415; 36416; 36430; 70450; 71045; 72125; 73502; 73552; 73562; 73700; 74176; 76000; 80048; 80053; 81001; 82140; 82533; 82962; 84439; 84443; 85014; 85018; 85025; 85610; 86850; 86900; 86920; 87077; 87086; 87186; 87635; 92610; 93005; 96372; 96374; 96375; 97110; 97161; 97167; 97530; 99285; C1713; C9113; J0610; J0690; J0696; J1170; J1815; J1940; J2405; J2704; J3010; J3370; J7030; J7050; J7799; P9016; P9041